=== PATIENT | male | born 1940 | race Caucasian/White ===

== ENCOUNTER 2020-07-05 16:39 | Inpatient (IN) | payer MEDICARE ==
--- NOTE | 2020-07-05 17:27 | ED ---
General Adult HPI - General Chief complaint: Shortness of Breath Stated complaint: Nausea, SOB Time Seen by Provider: 07/05/20 16:50 Source: patient, RN notes reviewed, old records reviewed Mode of arrival: EMS Limitations: no limitations - History of Present Illness Initial comments: 80-year-old male presented for evaluation of nausea, vomiting, and dyspnea. Patient's symptoms have been present for the past 4 days. He states he has been able to keep down some water but has not been able to eat. He did report some abdominal pain. He states they did call EMS. The day for symptoms of vomiting. At that time decided not to be transported. He developed some dyspnea this evening and again called EMS was transported to the emergency department at that time. He denies central chest pain. Denies lower extremity pain or swelling. States he's had a normal bowel movements. No fever. No current abdominal pain or chest pain. - Related Data Allergies Allergy/AdvReac Type Severity Reaction Status Date / Time No Known Allergies Allergy Verified 07/05/20 16:50 Review of Systems ROS Statement: Those systems with pertinent positive or pertinent negative responses have been documented in the HPI. ROS Other: All systems not noted in ROS Statement are negative. Past Medical History Past Medical History: Coronary Artery Disease (CAD), Hyperlipidemia History of Any Multi-Drug Resistant Organisms: None Reported Past Surgical History: Appendectomy, Pacemaker, Tonsillectomy Additional Past Surgical History / Comment(s): hemmeroids Past Psychological History: No Psychological Hx Reported Smoking Status: Current every day smoker Past Alcohol Use History: None Reported Past Drug Use History: None Reported General Exam Limitations: no limitations General appearance: alert, in no apparent distress Head exam: Present: atraumatic, normocephalic Eye exam: Present: normal appearance, PERRL ENT exam: Present: mucous membranes dry Neck exam: Present: normal inspection. Absent: tenderness, meningismus Respiratory exam: Present: decreased breath sounds. Absent: respiratory distress Cardiovascular Exam: Present: normal rhythm, tachycardia GI/Abdominal exam: Present: soft. Absent: distended, tenderness, guarding, rebound Extremities exam: Present: normal inspection. Absent: pedal edema Neurological exam: Present: alert, oriented X3, CN II-XII intact. Absent: motor sensory deficit Psychiatric exam: Present: normal affect, normal mood Skin exam: Present: warm, dry, intact. Absent: cyanosis, diaphoretic Course Vital Signs 07/05/20 07/05/20 07/05/20 16:41 17:49 18:32 Temperature 98.9 F Pulse Rate 107 H 92 106 H Respiratory 20 18 18 Rate Blood Pressure 117/79 115/80 108/79 O2 Sat by Pulse 93 L 96 97 Oximetry EKG Findings - EKG Comments: EKG Findings:: EKG: Atrial sensed ventricular paced rhythm, rate 97, [place] interval 108, QRS duration 188, QTC 548 Medical Decision Making - Medical Decision Making 80-year-old male presenting with nausea vomiting over the past 3 or 4 days followed by dyspnea which began this afternoon. Patient is diminished bilaterally, paced rhythm on EKG. He has no active chest pain. No lower extremity pain or swelling. His vital signs are stable upon arrival. Workup reveals chest x-ray showing pulmonary vascular congestion, trace bilate ral effusion. Abdominal x-rays negative for obstruction or intraperitoneal free air. Patient has mild leukocytosis, stable hemoglobin he has an INR of 1.6, d- dimer is elevated however after discussion with Dr. Norris covering for the ICU, recommends against CT angiography at this time, I agree given the patient will be heparinized. Patient has elevated bilirubin 3.1, elevated AST and ALT, ultrasound of the gallbladder liver is pending at this time. He has a significantly elevated troponin at 107. Case is discussed with Dr. Marion, He is given Lasix, started on a heparin drip, emergent echo has been ordered. Patient will be admitted to the ICU for close monitoring. - Lab Data Result diagrams: 07/05/20 17:29 07/05/20 17:29 Lab Results 07/05/20 07/05/20 07/05/20 Range/Units 17:29 17:29 17:29 WBC 10.7 H (3.8-10.6) k/uL RBC 5.15 (4.30-5.90) m/uL Hgb 16.4 (13.0-17.5) gm/dL Hct 52.2 (39.0-53.0) % MCV 101.2 H (80.0-100.0) fL MCH 31.8 (25.0-35.0) pg MCHC 31.4 (31.0-37.0) g/dL RDW 14.5 (11.5-15.5) % Plt Count 140 L (150-450) k/uL Neutrophils % 79 % Lymphocytes % 10 % Monocytes % 9 % Eosinophils % 0 % Basophils % 0 % Neutrophils # 8.4 H (1.3-7.7) k/uL Lymphocytes # 1.0 (1.0-4.8) k/uL Monocytes # 1.0 (0-1.0) k/uL Eosinophils # 0.0 (0-0.7) k/uL Basophils # 0.0 (0-0.2) k/uL Hypochromasia Slight Macrocytosis Slight PT 15.9 H (9.0-12.0) sec INR 1.6 H (<1.2) APTT 25.7 (22.0-30.0) sec D-Dimer 1.98 H (<0.60) mg/L FEU Sodium 138 (137-145) mmol/L Potassium 4.6 (3.5-5.1) mmol/L Chloride 103 (98-107) mmol/L Carbon Dioxide 26 (22-30) mmol/L Anion Gap 9 mmol/L BUN 31 H (9-20) mg/dL Creatinine 1.10 (0.66-1.25) mg/dL Est GFR (CKD-EPI)AfAm 74 (>60 ml/min/1.73 sqM) Est GFR (CKD-EPI)NonAf 64 (>60 ml/min/1.73 sqM) Glucose 119 H (74-99) mg/dL Plasma Lactic Acid [place] (0.7-2.0) mmol/L Calcium 9.7 (8.4-10.2) mg/dL Magnesium 1.8 (1.6-2.3) mg/dL Total Bilirubin 3.1 H (0.2-1.3) mg/dL AST 656 H (17-59) U/L ALT 101 H (4-49) U/L Alkaline Phosphatase 90 (38-126) U/L Troponin I (0.000-0.034) ng/mL NT-Pro-B Natriuret Pep pg/mL Total Protein 6.7 (6.3-8.2) g/dL Albumin 3.9 (3.5-5.0) g/dL 07/05/20 07/05/20 07/05/20 Range/Units 17:29 17:29 17:29 WBC (3.8-10.6) k/uL RBC (4.30-5.90) m/uL Hgb (13.0-17.5) gm/dL Hct (39.0-53.0) % MCV (80.0-100.0) fL MCH (25.0-35.0) pg MCHC (31.0-37.0) g/dL RDW (11.5-15.5) % Plt Count (150-450) k/uL Neutrophils % % Lymphocytes % % Monocytes % % Eosinophils % % Basophils % % Neutrophils # (1.3-7.7) k/uL Lymphocytes # (1.0-4.8) k/uL Monocytes # (0-1.0) k/uL Eosinophils # (0-0.7) k/uL Basophils # (0-0.2) k/uL Hypochromasia Macrocytosis PT (9.0-12.0) sec INR (<1.2) APTT (22.0-30.0) sec D-Dimer (<0.60) mg/L FEU Sodium (137-145) mmol/L Potassium (3.5-5.1) mmol/L Chloride (98-107) mmol/L Carbon Dioxide (22-30) mmol/L Anion Gap mmol/L BUN (9-20) mg/dL Creatinine (0.66-1.25) mg/dL Est GFR (CKD-EPI)AfAm (>60 ml/min/1.73 sqM) Est GFR (CKD-EPI)NonAf (>60 ml/min/1.73 sqM) Glucose (74-99) mg/dL Plasma Lactic Acid [place] 1.8 (0.7-2.0) mmol/L Calcium (8.4-10.2) mg/dL Magnesium (1.6-2.3) mg/dL Total Bilirubin (0.2-1.3) mg/dL AST (17-59) U/L ALT (4-49) U/L Alkaline Phosphatase (38-126) U/L Troponin I 107.000 H* (0.000-0.034) ng/mL NT-Pro-B Natriuret Pep 56351 pg/mL Total Protein (6.3-8.2) g/dL Albumin (3.5-5.0) g/dL Critical Care Time Critical Care Time: Yes Total Critical Care Time: 35 Disposition Clinical Impression: Congestive heart failure, NSTEMI (non-ST elevated myocardial infarction) Disposition: ADMITTED IP TO THIS [facility] Condition: Serious Is patient prescribed a controlled substance at d/c from ED?: No Referrals: Nonstaff,Physician [REFERRING] - 1-2 days Decision to Admit Reason: Admit from EC Decision Date: 07/05/20 Decision Time: 19:07
[2020-07-05 17:43] LABS: Basophils % (A) 0 %; Eosinophils % (A) 0 %; HCT 52.2 % (39.0-53.0); HGB 16.4 gm/dL (13.0-17.5); Hypochromasia Slight; Lymphocytes % (A) 10 %; MCH 31.8 pg (25.0-35.0); MCHC 31.4 g/dL (31.0-37.0); MCV 101.2 fL (80.0-100.0); Macrocytosis Slight; Mean Platelet Volume 9.5; Monocytes % (A) 9 %; Neutrophils # (A) 8.4 k/uL (1.3-7.7); Neutrophils % (A) 79 %; Platelet Count 140 k/uL (150-450); RBC 5.15 m/uL (4.30-5.90); RDW 14.5 % (11.5-15.5); WBC 10.7 k/uL (3.8-10.6)
[2020-07-05 17:53] LABS: Albumin 3.9 g/dL (3.5-5.0); Calcium 9.7 mg/dL (8.4-10.2); Magnesium 1.8 mg/dL (1.6-2.3); Potassium 4.6 mmol/L (3.5-5.1); Total Bilirubin 3.1 mg/dL (0.2-1.3); Total Protein 6.7 g/dL (6.3-8.2)
--- NOTE | 2020-07-05 17:55 | XR ---
EXAMINATION TYPE: XR chest 2V DATE OF EXAM: 07/05/2020 COMPARISON: None HISTORY: 80 year-old male shortness of breath, difficulty breathing TECHNIQUE: AP and lateral views FINDINGS: Left anterior chest wall ICD generator with right atrial, right ventricular, and coronary sinus leads . Heart mildly enlarged. Diffuse interstitial density. Small effusions on the lateral view. Retrocard iac opacity versus underpenetration. IMPRESSION: Correlate for CHF with pulmonary vascular congestion. Small effusions with adjacent atelectasis and/o r consolidation on the lateral view.
--- NOTE | 2020-07-05 17:57 | XR ---
EXAMINATION TYPE: XR KUB DATE OF EXAM: 07/05/2020 Comparison: None Clinical History: 80-year-old male, shortness of breath and nausea, weakness, pain Findings: No evidence for free intraperitoneal air. No dilated small bowel or air-fluid levels. Gas in colon. Calcifications in the left mid abdomen coul d be vascular or could represent small renal calculi. Rounded calcification left upper quadrant could represent a 1.3 cm splenic artery aneurysm. More vascular calcifications in the pelvis. Impression: No evidence for free air or bowel obstruction. Either some vascular calcifications versus left-sided renal calculi. Rounded calcification left upper quadrant could represent an incidental 1.3 cm splenic artery aneurysm.
[2020-07-05 18:01] LABS: INR 1.6 (<1.2); Partial Thromboplastin Time 25.7 sec (22.0-30.0); Prothrombin Time 15.9 sec (9.0-12.0)
[2020-07-05 18:10] LABS: D-Dimer 1.98 mg/L FEU (<0.60)
[2020-07-05] MEDS ORDERED: SODIUM CHLORIDE 0.9% 500 ML 500 ML IV ONE ×2 (18:34)
[2020-07-05] MEDS ORDERED: SODIUM CHLORIDE 0.9% 1,000 ML IV SCH (18:45)
[2020-07-05] MEDS ORDERED: FUROSEMIDE 10 MG/ML 4 ML VIAL IV STA (18:48)
[2020-07-05] MEDS ORDERED: HEPARIN SODIUM,PORCINE 5,000 UNIT/ML 1 ML VIAL IV PRN (18:49)
[2020-07-05] MEDS ORDERED: HEPARIN SODIUM,PORCINE 5,000 UNIT/ML 1 ML VIAL IV ONE (18:49)
[2020-07-05] MEDS ORDERED: NALOXONE 0.4 MG/ML 1 ML VIAL IV PRN (18:50)
[2020-07-05] MEDS ORDERED: HYDROmorphone 0.5 MG/0.5 ML SYRINGE IVP PRN (18:50)
[2020-07-05] MEDS ORDERED: ACETAMINOPHEN TAB 325 MG TAB PO PRN (18:50)
[2020-07-05] MEDS ORDERED: ASPIRIN 325 MG TAB PO STA (18:50)
--- NOTE | 2020-07-05 19:23 | US ---
EXAMINATION TYPE: US gallbladder DATE OF EXAM: 07/05/2020 COMPARISON: NONE CLINICAL HISTORY: 80-year-old male vomiting/bili. Abdominal pain. Abnormal labs. TECHNIQUE: Multiple sonographic images of the right upper quadrant are obtained. FINDINGS: EXAM MEASUREMENTS: Liver Length: 18.6 cm Gallbladder Wall: 0.6 cm CBD: 0.6 cm Right Kidney: 10.1 x 5.8 x 4.9 cm Sonar Watchstander notes:Suboptimal imaging due to patient heavy breathing Pancreas: Echogenic in appearance. Tail not well seen Liver: Mildly enlarged 18.6 cm. Hypoechoic appearance with echogenic appearance to the periportal fa t. Portal dyson appear echogenic. Distal IVC- 3.1 cm. Gallbladder: Prominent wall thickening. No stones or sludge visualized. Mildly hydropic at 4.1 cm wide. Evidence for sonographic Diaz's sign: neg CBD: wnl for patient's age. Right Kidney: No hydronephrosis. IMPRESSION: 1. Hepatomegaly (18.6 cm) with hypoechoic appearance to the liver and echogenic periportal fat. Findi ngs may be seen in the setting of hepatitis. Clinically correlate. 2. Gallbladder wall thickening is nonspecific. It can be reactive to hepatitis or reflect fluid overl oad state. Mildly hydropic change may be seen with fasting state. No stones or surrounding fluid. If concern for early acute cholecystitis, HIDA scan can be performed.
[2020-07-05] MEDS: HEPARIN SOD,PORK IN 0.45% NACL 25,000 UNIT in 0.45% NACL 1 250ML.BAG IV SCH (19:41)
[2020-07-05 20:11] LABS: Glucose,Whole Blood 106 mg/dL (75-99)
--- NOTE | 2020-07-05 23:18 | P.HPIM ---
History of Present Illness H&P Date: 07/05/20 The patient is a 80-year-old male with a PMH of tobacco abuse and hyperlipidemia who presented to the ED with complaints of shortness of breath, nausea, vomiting, and dizziness. Patient reports that his symptoms started on the evening of 07/03. He reports that he woke up roughly at midnight drenched in sweat, didn't think much of it and went back to sleep. The following day he developed his gradually worsening shortness of breath. He also reported of burning like discomfort in the chest, similar to his previous episodes of heartburn, which was relieved by Tums. He also had nausea with 2 episodes of vomiting, nonbloody along with a poor appetite. His neighbors checked in on him earlier in the day today and called EMS. The patient initially refused to come to the hospital. The neighbors called the ambulance a second time, as his symptoms worsened, at which time he was brought in to the emergency room. The patient denied experiencing orthopnea or pressure-like chest discomfort. He reports some dizziness today when he tries to stand up too quickly, though denied loss of consciousness or falls. He reports that his shortness of breath is non-positional and denied orthopnea. Denied recent colds or URI-like symptoms. Denied fever, cough, abdominal pain, or diarrhea. In the emergency room, an EKG revealed an atrial sensed V paced rhythm at 97 bpm. Chest x-ray was consistent with CHF with pulmonary venous congestion with a gallbladder ultrasound showing hepatomegaly with hypoechoic appearance of the liver, possibly due to hepatitis. Gallbladder wall was thickened with mild hydropic change. Troponin was elevated at 107, BNP 15,300, total bilirubin 3.1, AST 656, ALT 101, d-dimer 1.98, BUN 31, WBC count 10.7, with platelet count 140. Review of Systems Pertinent positives and negatives as discussed in HPI, a complete review of systems was performed and all other systems are negative. Past Medical History Past Medical History: Coronary Artery Disease (CAD), Hyperlipidemia History of Any Multi-Drug Resistant Organisms: None Reported Past Surgical History: Appendectomy, Pacemaker, Tonsillectomy Additional Past Surgical History / Comment(s): hemmeroids Past Psychological History: No Psychological Hx Reported Smoking Status: Current every day smoker Past Alcohol Use History: None Reported Past Drug Use History: None Reported Medications and Allergies Allergies Allergy/AdvReac Type Severity Reaction Status Date / Time No Known Allergies Allergy Verified 07/05/20 16:50 Physical Exam Vitals: Vital Signs Temp Pulse Resp BP Pulse Ox 07/05/20 19:46 100 18 109/72 95 07/05/20 19:08 98.6 F 98 18 104/75 95 07/05/20 18:32 106 H 18 108/79 97 07/05/20 17:49 92 18 115/80 96 07/05/20 16:41 98.9 F 107 H 20 117/79 93 L Intake and Output 07/05/20 07/05/20 07/05/20 06:59 14:59 22:59 Intake Total 200 Balance 200 Intake: Amount of Fluid Infused ( 200 ml) Other: Weight 98.883 kg General: non toxic, no distress, appears at stated age, overweight Derm: no unusual rashes/lesions no unusual ecchymoses, warm, dry Head: atraumatic, normocephalic, symmetric Eyes: EOMI, no lid lag, anicteric sclera, pupils equal round reactive to light ENT: Nose and ears atraumatic, no thrush, no pharyngeal erythema Neck: No thyromegaly, no cervical lymphadenopathy, trachea midline, supple Mouth: no lip lesion, mucus membranes moist Cardiovascular: S1S2 reg, no murmur, positive posterior tibial pulse bilateral, no edema, capillary refill less than 2 seconds Lungs: CTA bilateral, no rhonchi, no rales , no accessory muscle use Abdominal: soft, nontender to palpation, no guarding, no appreciable organomegaly, normal bowel sounds Ext: no gross muscle atrophy, muscle strength 5 out of 5 in all 4 extremities grossly, no contractures, Neuro: CN II-XI grossly intact, light touch intact all 4 extremities, finger to nose within normal limits, Psych: Alert, oriented, appropriate affect Results CBC & Chem 7: 07/05/20 17:29 07/05/20 17:29 Labs: Abnormal Lab Results - Last 24 Hours (Table) 07/05/20 07/05/20 07/05/20 Range/Units 17:29 17:29 17:29 WBC 10.7 H (3.8-10.6) k/uL MCV 101.2 H (80.0-100.0) fL Plt Count 140 L (150-450) k/uL Neutrophils # 8.4 H (1.3-7.7) k/uL PT 15.9 H (9.0-12.0) sec INR 1.6 H (<1.2) D-Dimer 1.98 H (<0.60) mg/L FEU BUN 31 H (9-20) mg/dL Glucose 119 H (74-99) mg/dL POC Glucose (mg/dL) (75-99) mg/dL Total Bilirubin 3.1 H (0.2-1.3) mg/dL AST 656 H (17-59) U/L ALT 101 H (4-49) U/L Troponin I (0.000-0.034) ng/mL 07/05/20 07/05/20 Range/Units 17:29 20:09 WBC (3.8-10.6) k/uL MCV (80.0-100.0) fL Plt Count (150-450) k/uL Neutrophils # (1.3-7.7) k/uL PT (9.0-12.0) sec INR (<1.2) D-Dimer (<0.60) mg/L FEU BUN (9-20) mg/dL Glucose (74-99) mg/dL POC Glucose (mg/dL) 106 H (75-99) mg/dL Total Bilirubin (0.2-1.3) mg/dL AST (17-59) U/L ALT (4-49) U/L Troponin I 107.000 H* (0.000-0.034) ng/mL Assessment and Plan Plan: Elevated troponin, acute CHF - NSTEMI versus myocarditis -The case was discussed with cardiology on-call as per the ED physician who had recommended that the patient is not a candidate for cardiac catheterization due to his absence of chest pain -It was recommended to continue management with heparin and the CHF pathway -Continue to trend troponin -Cardiac monitoring -Cardiac consult -Continue with aspirin -Obtain echocardiogram -Continue with Lasix 40 mg every 12 hourly, heparin infusion, fluid restriction Abnormal LFTs -Likely secondary to hepatic congestion -Monitor for now -Liver ultrasound reviewed -Consider hepatitis workup if does not improve Coagulopathy, possibly due to ongoing hepatic congestion -Monitor for now DVT prophylaxis -IPCDs The patient is admitted with an anticipated greater than 2 midnight stay for evaluation of SOB CODE STATUS: Full Code Discussed with: Patient Anticipated discharge date: 3-[address]: Home A total of 45 minutes was spent on the care of this complex patient more than 50% of the time was spent in counseling and care coordination.
[2020-07-05 23:49] LABS: Appearance,Urine Cloudy (Clear); Bilirubin,Urine Negative (Negative); Blood,Urine Moderate (Negative); Color,Urine Yellow; Glucose,Urine (UA) Negative (Negative); Hyaline Casts,Urine 30 /lpf (0-2); Ketones,Urine Negative (Negative); Leukocyte Esterase,Urine Negative (Negative); Mucus,Urine Few /hpf; Nitrite,Urine Negative (Negative); Protein,Urine Trace (Negative); RBC,Urine 59 /hpf (0-5); Specific Gravity,Urine 1.015 (1.001-1.035); Squamous Epithelial Cell,Urine <1 /hpf (0-4); Urobilinogen,Urine <2.0 mg/dL (<2.0); WBC,Urine 4 /hpf (0-5)
[2020-07-06 04:31] LABS: HCT 52.4 % (39.0-53.0); HGB 16.4 gm/dL (13.0-17.5); Hypochromasia Slight; MCH 31.9 pg (25.0-35.0); MCHC 31.3 g/dL (31.0-37.0); MCV 102.1 fL (80.0-100.0); Macrocytosis Slight; Mean Platelet Volume 9.2; Platelet Count 125 k/uL (150-450); RBC 5.14 m/uL (4.30-5.90); RDW 14.4 % (11.5-15.5); WBC 15.3 k/uL (3.8-10.6)
[2020-07-06 04:34] LABS: INR 1.8 (<1.2); Prothrombin Time 17.3 sec (9.0-12.0)
[2020-07-06 04:46] LABS: Albumin 3.5 g/dL (3.5-5.0); Calcium 9.2 mg/dL (8.4-10.2); Potassium 4.9 mmol/L (3.5-5.1); Total Bilirubin 3.1 mg/dL (0.2-1.3); Total Protein 6.2 g/dL (6.3-8.2)
[2020-07-06 05:16] LABS: Eosinophils # (M) 0.15 k/uL (0-0.7); Large Platelets Present; Lymphocytes # (M) 2.75 k/uL (1.0-4.8); Monocytes # (M) 1.22 k/uL (0-1.0); Neutrophils # (M) 11.17 k/uL (1.3-7.7); Neutrophils % (M) 73 %; Nucleated Red Blood Cells 0 /100 WBC (0-0); Total Cells Counted 100
--- NOTE | 2020-07-06 07:27 | P.CRDCN ---
History of Present Illness Consult date: 07/06/20 History of present illness: This is a 80-year-old gentleman with history of cardiomyopathy, previous AICD placement being followed by a coach driver in [place] has been feeling sick for the last 3-4 days. He claims since starting Monday patient has been nauseated, unable to eat and getting more short of breath. He also claimed that he had some burning sensation as if he needed tums. Patient continued to be sick Monday and Monday. Apparently his is out of town. His neighbors called the paramedics on Monday, but patient refused to come to the emergency room. Finally patient came to the emergency room last night. His EKG showed pacemaker rhythm. Patient had defibrillator implantation suggestive of previous cardiomyopathy. Patient had JVD and evidence of CHF. His troponin was about 100 and liver enzymes are elevated, most probably secondary to congestion. It is admitted to the hospital and was started on IV diuretics. Patient is diures ing. He is feeling slightly better today. We'll continue maximal medical therapy at this time. Get an echocardiogram. Get information from his coach driver. Further recommendation will depend upon the clinical course. Prognosis is guarded Review of Systems As per the chart Past Medical History Past Medical History: Coronary Artery Disease (CAD), Hyperlipidemia History of Any Multi-Drug Resistant Organisms: None Reported Past Surgical History: Appendectomy, Pacemaker, Tonsillectomy Additional Past Surgical History / Comment(s): hemmeroids Type of Cardiac Device: Permanent Pacemaker, AICD Device Placement Date:: Patient states "About 7 years ago" Past Psychological History: No Psychological Hx Reported Smoking Status: Current every day smoker Past Alcohol Use History: None Reported Past Drug Use History: None Reported Medications and Allergies Allergies Allergy/AdvReac Type Severity Reaction Status Date / Time No Known Allergies Allergy Verified 07/05/20 16:50 Physical Exam Vitals: Vital Signs Temp Pulse Resp BP Pulse Ox 07/06/20 07:00 98 14 87/51 93 L 07/06/20 06:00 101 H 13 99/70 93 L 07/06/20 05:00 79 43 H 76/56 93 L 07/06/20 04:00 98.6 F 97 8 L 104/59 91 L 07/06/20 03:00 101 H 47 H 98/64 90 L 07/06/20 02:00 86 24 108/63 94 L 07/06/20 01:00 96 25 H 123/81 93 L 07/06/20 00:00 98.9 F 93 21 108/70 95 07/05/20 23:00 98 24 96/75 94 L 07/05/20 22:00 92 25 H 97/68 94 L 07/05/20 21:53 86 26 H 97/68 94 L 07/05/20 21:23 121/104 07/05/20 20:00 109/72 95 07/05/20 19:46 100 18 109/72 95 07/05/20 19:08 98.6 F 98 18 104/75 95 07/05/20 19:00 98 40 H 108/79 94 L 07/05/20 18:32 106 H 18 108/79 97 07/05/20 18:00 98 50 H 115/80 94 L 07/05/20 17:49 92 18 115/80 96 07/05/20 17:00 105 H 33 H 117/79 94 L 07/05/20 16:45 95 07/05/20 16:41 98.9 F 107 H 20 117/79 93 L Intake and Output 07/05/20 07/06/20 07/06/20 22:59 06:59 14:59 Intake Total 210 140.167 5 Output Total 700 200 Balance 210 -559.833 -195 Intake: IV 10 40 5 0.9 10 40 5 Amount of Fluid Infused ( 200 ml) Intake, IV Titration 100.167 Amount Heparin Sod,Pork in 0.45% 100.167 NaCl 25,000 unit In 0.45 % NaCl 1 250ml.bag @ 10. 113 UNITS/KG/HR 10 mls/hr IV .Q24H [facility] Rx#: [id number] Output: Urine 700 200 Other: # Voids 1 Weight 98.883 kg 98.6 kg GENERAL EXAM: Patient is alert and oriented and appears to be in mild distress HEENT: Normocephalic. Normal reaction of pupils, equal size, normal range of extraocular motion. No erythema or exudates in the throat. NECK: No masses, no nuchal rigidity. CHEST: No chest wall deformity. LUNGS: Decreased breath sounds and few rales at the bases HEART: S1 and S2 normal with no audible mumurs or gallops. Regular rhythm, femorals equal on both sides.. ABDOMEN: Soft CENTRAL NERVOUS SYSTEM: No focal deficits. EXTREMITIES: No cyanosis, clubbing or edema. Results 07/06/20 04:17 07/06/20 04:17 Cardiac Enzymes 07/05/20 07/05/20 07/06/20 Range/Units 17:29 17:29 04:17 AST 656 H 542 H (17-59) U/L Troponin I 107.000 H* (0.000-0.034) ng/mL Coagulation 07/05/20 07/06/20 07/06/20 Range/Units 17:29 00:21 04:17 PT 15.9 H 17.3 H (9.0-12.0) sec APTT 25.7 36.1 H (22.0-30.0) sec CBC 07/05/20 07/06/20 Range/Units 17:29 04:17 WBC 10.7 H 15.3 H (3.8-10.6) k/uL RBC 5.15 5.14 (4.30-5.90) m/uL Hgb 16.4 16.4 (13.0-17.5) gm/dL Hct 52.2 52.4 (39.0-53.0) % Plt Count 140 L 125 L (150-450) k/uL Comprehensive Metabolic Panel 07/05/20 07/06/20 Range/Units 17:29 04:17 Sodium 138 137 (137-145) mmol/L Potassium 4.6 4.9 (3.5-5.1) mmol/L Chloride 103 104 (98-107) mmol/L Carbon Dioxide 26 27 (22-30) mmol/L BUN 31 H 36 H (9-20) mg/dL Creatinine 1.10 1.19 (0.66-1.25) mg/dL Glucose 119 H 112 H (74-99) mg/dL Calcium 9.7 9.2 (8.4-10.2) mg/dL AST 656 H 542 H (17-59) U/L ALT 101 H 92 H (4-49) U/L Alkaline Phosphatase 90 77 (38-126) U/L Total Protein 6.7 6.2 L (6.3-8.2) g/dL Albumin 3.9 3.5 (3.5-5.0) g/dL Current Medications Generic Name Dose Route Start Last Admin Trade Name Freq PRN Reason Stop Dose Admin Acetaminophen 650 mg 07/05/20 18:50 Tylenol Tab PO Q4HR PRN Fever and/or Mild Pain Furosemide 40 mg 07/06/20 09:00 Lasix IV Q12HR [facility] Heparin Sodium (Porcine) 0 unit 07/05/20 18:49 Heparin IV PER PROTOCOL PRN Low PTT Protocol Hydromorphone HCl 0.5 mg 07/05/20 18:50 Dilaudid IVP Q2HR PRN Pain Scale 4 to 5 Heparin Sodium/Sodium Chloride 250 mls @ 10 mls/hr 07/05/20 19:00 07/06/20 05:42 25,000 unit/ Sodium Chloride IV 12.113 units/kg/hr .Q24H NIRMALA 11.978 mls/hr Titration Protocol 10.113 UNITS/KG/HR Naloxone HCl 0.2 mg 07/05/20 18:50 Narcan IV Q2M PRN Opioid Reversal Intake and Output 07/05/20 07/06/20 07/06/20 22:59 06:59 14:59 Intake Total 210 140.167 5 Output Total 700 200 Balance 210 -559.833 -195 Intake: IV 10 40 5 0.9 10 40 5 Amount of Fluid Infused ( 200 ml) Intake, IV Titration 100.167 Amount Heparin Sod,Pork in 0.45% 100.167 NaCl 25,000 unit In 0.45 % NaCl 1 250ml.bag @ 10. 113 UNITS/KG/HR 10 mls/hr IV .Q24H [facility] Rx#: [id number] Output: Urine 700 200 Other: # Voids 1 Weight 98.883 kg 98.6 kg 07/06/20 04:17 07/06/20 04:17 EKG Interpretations (text) Pacemaker rhythm Assessment and Plan (1) Myocardial infarction Current Visit: Yes Status: Acute Code(s): I21.9 - ACUTE MYOCARDIAL INFARCTION, UNSPECIFIED SNOMED Code(s): 71570980 (2) Acute on chronic systolic heart failure Current Visit: Yes Status: Acute Code(s): I50.23 - ACUTE ON CHRONIC SYSTOLIC (CONGESTIVE) HEART FAILURE SNOMED Code(s): 312761947 (3) Cardiomyopathy Current Visit: Yes Status: Acute Code(s): I42.9 - CARDIOMYOPATHY, UNSPEC IFIED SNOMED Code(s): 76639113 (4) AICD (automatic cardioverter/defibrillator) present Current Visit: Yes Status: Acute Code(s): Z95.810 - PRESENCE OF AUTOMATIC (IMPLANTABLE) CARDIAC DEFIBRILLATOR SNOMED Code(s): 626760692 Plan: Continue with the maximum medical therapy including diuretics, IV heparin, beta blockers and YUE inhibitor as tolerated. Echocardiogram. Get information from his previous coach driver. Discussed with family. Patient may require cardiac catheterization in the near future
[2020-07-06] MEDS ORDERED: FUROSEMIDE 10 MG/ML 4 ML VIAL IV SCH ×2 (08:00→09:00)
[2020-07-06] MEDS ORDERED: METOPROLOL TARTRATE 12.5 MG TAB PO SCH (09:00)
--- NOTE | 2020-07-06 11:00 | ECHOF ---
Referral Reason:CHF, myocarditis ? MEASUREMENTS -------- HEIGHT: 182.9 cm WEIGHT: 98.4 kg BP: 87/51 IVSd: 1.3 cm (0.6 - 1.1) LVIDd: 7.8 cm (3.9 - 5.3) LVPWd: 1.7 cm (0.6 - 1.1) EDV(Teich): 327 ml IVSs: 1.3 cm LVIDs: 7.7 cm LVPWs: 1.6 cm %IVS Thck: -2 % ESV(Teich): 318 ml EF(Teich): 3 % %FS: 1 % SV(Teich): 9 ml RVIDd: 3.6 cm (< 3.3) Ao Diam: 3.6 cm (2.0 - 3.7) LA Diam: 4.0 cm (2.7 - 3.8) AV Cusp: 2.1 cm (1.5 - 2.6) EPSS: 2.8 cm MV E Andre: 0.97 m/s MV DecT: 217 ms MV Dec [place]: 4.5 m/s MV A Andre: 0.76 m/s MV E/A Ratio: 1.27 MV PHT: 63 ms MR Vmax: 1.08 m/s MR maxP.65 mmHg AV Vmax: 0.75 m/s AV maxP.27 mmHg AR Vmax: 0.79 m/s AR maxP.52 mmHg AR PHT: 564 ms AR Dec Time: 1946 ms AR Dec [place]: 0.4 m/s PV Vmax: 2.12 m/s PV maxP.91 mmHg MS Vmax: 2.12 m/s MS maxP.91 mmHg MS PHT: 686 ms MS DecT: 2366 ms MS Dec [place]: 0.9 m/s TR Vmax: 0.79 m/s TR maxP.51 mmHg RAP: 5.00 mmHg RVSP: 7.51 mmHg MV EF SLOPE: 94.59 mm/s (70 - 150) MV EXCURSION: 14.84 mm (> 18.000) FINDINGS -------- AICD This was a technically difficult study with suboptimal views. The left ventricle is severely dilated. Left ventricular wall thickness is normal. There is sever e global hypokinesis of LV . Overall left ventricular systolic function is severely impaired with, an EF < 20%. The right ventricle is mildly enlarged. The left atrium is mildly dilated. The right atrium was not well visualized. Lumason used Unable to visualize the septum. Aortic valve is trileaflet and is mildly thickened. There is moderate eccentric aortic regurgitatio n. The mitral valve is normal. There is trace mitral regurgitation. The tricuspid valve appears structurally normal. Trace tricuspid regurgitation present. Right sergio tricular systolic pressure is normal at < 35 mmHg. Moderate pulmonic regurgitation. The aortic root size is normal. IVC Not well visulized. There is a trivial pericardial effusion present. CONCLUSIONS -------- 1. The left ventricle is severely dilated. 2. Left ventricular wall thickness is normal. 3. There is severe global hypokinesis of LV . 4. Overall left ventricular systolic function is severely impaired with, an EF < 20%. 5. The right ventricle is mildly enlarged. 6. The left atrium is mildly dilated. 7. Aortic valve is trileaflet and is mildly thickened. There is moderate eccentric aortic regurgitat ion. 8. There is trace mitral regurgitation. 9. Trace tricuspid regurgitation present. 10. There is a trivial pericardial effusion present. PRESS FEEDER: Bernice Lara RDCS
[2020-07-06] MEDS: DOBUTamine DRIP 500 MG in DEXTROSE/WATER 1 250ML.BAG IV SCH (11:48)
[2020-07-06] MEDS: FUROSEMIDE 100 MG in SODIUM CHLORIDE 0.9% 90 ML IV SCH (11:48)
[2020-07-06] MEDS: PANTOPRAZOLE 40 MG TABLET PO SCH (11:49)
[2020-07-06] MEDS ORDERED: NITROGLYCERIN SL TABS 0.4 MG TAB SUBLINGUAL ONE ×2 (12:17→12:18)
--- NOTE | 2020-07-06 13:57 | P.CNPUL ---
History of Present Illness Consult date: 07/06/20 Requesting physician: Sundeep Rios Reason for consult: other (Acute myocardial infarction and acute on chronic systolic heart failure) Chief complaint: Nausea and vomiting History of present illness: This is a 80-year-old white male with history of cardiomyopathy and LV dysfunction. No history of coronary artery disease, previous AICD placement, normally follows up with a dispensing optician apprentice in [place]. Patient has been feeling sick for the last 4 days, patient has been experiencing intermittent episodes of nausea, unable to hold anything down, nauseated, vomiting at times, and he had some burning sensation in the chest. His neighbors were concerned, and the paramedics were called in on Monday. However the patient refused to come to the emergency room initially, but later on he changed his mind. Patient presented to the ER, and he was noted to have a paced rhythm, he was also noted to have congestive heart failure, with significantly elevated troponin level, significantly elevated pro BNP level, admitted, placed on diuretics, seen by cardiology on consultation, Though on heparin, echocardiogram showed significant LV dysfunction with ejection fraction of less than 20%. After my evaluation, I recommended a Lasix drip at 5 mg per hour, I also recommended dobutamine at 5 mcg/kg/m. Review of Systems Constitutional: Complaining of weakness, fatigue, no weight loss, no fever, no chills. HEENT: Negative. Pulmonary: Some shortness of breath, occasional cough, no wheezing. Cardiac: As noted in HPI. GI: Nausea, vomiting, and unable to hold anything down. Genitourinary: Negative Musculoskeletal: Negative Endocrine: Denies heat or cold intolerance. Skin: Negative Neurologic: Negative Hematologic: No history of clotting bleeding or bruising Psychiatric: Denies any symptoms of depression Past Medical History Past Medical History: Coronary Artery Disease (CAD), Hyperlipidemia History of Any Multi-Drug Resistant Organisms: None Reported Past Surgical History: Appendectomy, Pacemaker, Tonsillectomy Additional Past Surgical History / Comment(s): hemmeroids Type of Cardiac Device: Permanent Pacemaker, AICD Device Placement Date:: Patient states "About 7 years ago" Past Psychological History: No Psychological Hx Reported Smoking Status: Current every day smoker Past Alcohol Use History: None Reported Past Drug Use History: None Reported Medications and Allergies Home Medications Medication Instructions Recorded Confirmed Type Atorvastatin [Lipitor] 20 mg PO HS 07/06/20 07/06/20 History Furosemide [Lasix] 40 mg PO DAILY 07/06/20 07/06/20 History Isosorbide Mononitrate ER [Imdur] 30 mg PO DAILY 07/06/20 07/06/20 History Metoprolol Succinate (ER) [Toprol 25 mg PO DAILY 07/06/20 07/06/20 History Xl] Tamsulosin HCl [Flomax] 0.4 mg PO DAILY 07/06/20 07/06/20 History Allergies Allergy/AdvReac Type Severity Reaction Status Date / Time No Known Allergies Allergy Verified 07/06/20 09:57 Physical Exam Vitals: Vital Signs Temp Pulse Resp BP Pulse Ox 07/06/20 13:00 101 H 23 123/57 100 07/06/20 12:00 98.2 F 71 38 H 97/70 97 07/06/20 11:00 84 26 H 92/74 100 07/06/20 10:00 57 L 26 H 105/65 96 07/06/20 09:00 81 27 H 105/86 92 L 07/06/20 08:00 98 F 99 28 H 107/80 92 L 07/06/20 07:00 98 14 87/51 93 L 07/06/20 06:00 101 H 13 99/70 93 L 07/06/20 05:00 79 43 H 76/56 93 L 07/06/20 04:00 98.6 F 97 8 L 104/59 91 L 07/06/20 03:00 101 H 47 H 98/64 90 L 07/06/20 02:00 86 24 108/63 94 L 07/06/20 01:00 96 25 H 123/81 93 L 07/06/20 00:00 98.9 F 93 21 108/70 95 07/05/20 23:00 98 24 96/75 94 L 07/05/20 22:00 92 25 H 97/68 94 L 07/05/20 21:53 86 26 H 97/68 94 L 07/05/20 21:23 121/104 07/05/20 20:00 109/72 95 07/05/20 19:46 100 18 109/72 95 07/05/20 19:08 98.6 F 98 18 104/75 95 07/05/20 19:00 98 40 H 108/79 94 L 07/05/20 18:32 106 H 18 108/79 97 07/05/20 18:00 98 50 H 115/80 94 L 07/05/20 17:49 92 18 115/80 96 07/05/20 17:00 105 H 33 H 117/79 94 L 07/05/20 16:45 95 07/05/20 16:41 98.9 F 107 H 20 117/79 93 L Intake and Output 07/05/20 07/06/20 07/06/20 22:59 06:59 14:59 Intake Total 210 140.167 126.033 Output Total 700 340 Balance 210 -559.833 -213.967 Intake: IV 10 40 35 0.9 10 40 35 Amount of Fluid Infused ( 200 ml) Intake, IV Titration 100.167 91.033 Amount Heparin Sod,Pork in 0.45% 100.167 91.033 NaCl 25,000 unit In 0.45 % NaCl 1 250ml.bag @ 10. 113 UNITS/KG/HR 10 mls/hr IV .Q24H [facility] Rx#: [id number] Output: Urine 700 340 Other: # Voids 1 Weight 98.883 kg 98.6 kg Physical Exam: Revealed a 80-year-old white male, pleasant, on 3 L nasal cannu la, O2 saturations 92%. Head: Atraumatic, normocephalic. HEENT:[Neck is supple.] [No neck masses.] [No thyromegaly.] Positive JVD. Chest: [Crackles at the bases, no rhonchi and no wheezes. Symmetrical chest expansion.] Cardiac Exam: Paced rhythm, normal S1 and S2, 2/6 systolic murmur thought the p recordium Abdomen: [Obese, Soft, nontender, no megaly, no rebound, no guarding, normal bowel sounds.] Extremities: [No clubbing, 1+ bipedal edema, no cyanosis.] Neurological Exam: [No focal neurologic deficit.] Alert oriented 3. Psychiatric: Normal mood, affect and normal mental status examination. Musculoskeletal: No deformities noted limitation of range of motion Skin: No rashes. Results - Laboratory Findings CBC and BMP: 07/06/20 04:17 07/06/20 04:17 PT/INR, D-dimer PT 17.3 sec (9.0-12.0) H 07/06/20 04:17 INR 1.8 (<1.2) H 07/06/20 04:17 D-Dimer 1.98 mg/L FEU (<0.60) H 07/05/20 17:29 Abnormal lab findings: Abnormal Labs 07/05/20 07/05/20 07/05/20 17:29 17:29 17:29 WBC 10.7 H MCV 101.2 H Plt Count 140 L Neutrophils # 8.4 H Neutrophils # (Manual) Monocytes # (Manual) PT 15.9 H INR 1.6 H APTT D-Dimer 1.98 H BUN 31 H Glucose 119 H POC Glucose (mg/dL) Total Bilirubin 3.1 H AST 656 H ALT 101 H Troponin I Total Protein Urine Protein Urine Blood Urine RBC Hyaline Casts Urine Mucus 07/05/20 07/05/20 07/05/20 17:29 20:09 23:31 WBC MCV Plt Count Neutrophils # Neutrophils # (Manual) Monocytes # (Manual) PT INR APTT D-Dimer BUN Glucose POC Glucose (mg/dL) 106 H Total Bilirubin AST ALT Troponin I 107.000 H* Total Protein Urine Protein Trace H Urine Blood Moderate H Urine RBC 59 H Hyaline Casts 30 H Urine Mucus Few H 07/06/20 07/06/20 07/06/20 00:21 04:17 04:17 WBC 15.3 H MCV 102.1 H Plt Count 125 L Neutrophils # Neutrophils # (Manual) 11.17 H Monocytes # (Manual) 1.22 H PT INR APTT 36.1 H D-Dimer BUN 36 H Glucose 112 H POC Glucose (mg/dL) Total Bilirubin 3.1 H AST 542 H ALT 92 H Troponin I Total Protein 6.2 L Urine Protein Urine Blood Urine RBC Hyaline Casts Urine Mucus 07/06/20 07/06/20 04:17 12:11 WBC MCV Plt Count Neutrophils # Neutrophils # (Manual) Monocytes # (Manual) PT 17.3 H INR 1.8 H APTT 67.2 H D-Dimer BUN Glucose POC Glucose (mg/dL) Total Bilirubin AST ALT Troponin I Total Protein Urine Protein Urine Blood Urine RBC Hyaline Casts Urine Mucus - Diagnostic Findings Chest x-ray: image reviewed (Chest x-ray is consistent with CHF. There is pulmonary vascular congestion, small effusions and atelectasis) Assessment and Plan Assessment: Impression: Acute hypoxic respiratory failure secondary to acute on chronic systolic congestive heart failure and pulmonary edema. Acute non-ST elevation myocardial infarction Acute on chronic systolic congestive heart failure Severe cardiomyopathy and LV dysfunction Elevated liver enzymes secondary to hepatic congestion and congestive heart failure History of AICD placement. Recommendation: Continue heparin. Continue diuretics, I have started the patient on Lasix drip at 5 mg per hour. Considering the patient was developing worsening shortness of breath, I recommended Dobutrex along with Lasix drip. Continue to monitor the patient in the ICU. May eventually require cardiac catheterization. We'll continue to follow. Prognosis is poor and guarded considering his LV dysfunction. Time with Patient: Greater than 30
--- NOTE | 2020-07-06 20:29 | P.PN ---
Subjective Progress Note Date: 07/06/20 (delayed charting seen at 1430) Principal diagnosis: shortness of breath Patient is a 80-year-old male with a history of congestive heart failure status post AICD, dyslipidemia, and tobacco abuse who presented to the emergency department with shortness of breath, nausea, vomiting, and dizziness. Currently admitted to the ICU on treatment for cardiogenic shock. Patient seen and examined at bedside. He reports that his last hospital stay for congestive heart failure was in winter of this year. He states he is taking his medications appropriately. He is complaining of some shortness of breath and abdominal discomfort. He denies any more nausea or vomiting. General: Ill appearing, moderate distress appears at stated age Derm: warm, dry Head: atraumatic, normocephalic, symmetric Eyes: EOMI, no lid lag, anicteric sclera Mouth: no lip lesion, mucus membranes moist Cardiovascular: S1 and S2 tachycardic, positive posterior tibial pulse bilateral, Lungs: Crackles bilateral bases, 3 word conversational dyspnea, no accessory muscle use Abdominal: soft, nontender to palpation, no guarding, no appreciable organomegaly Ext: no gross muscle atrophy, 1+ edema, no contractures Neuro: CN II-XI grossly intact, no focal neuro deficits Psych: Alert, oriented, appropriate affect Non-ST segment elevated myocardial infarction -Heparin drip - ASA, lipitor Acute on chronic systolic congestive heart failure ejection fraction less than 20% with cardiogenic shock, AICD in place -Continue with Lasix drip if: Full urine output is not achieved increase to 10 mg/h -Aldactone -Continue with dobutamine -Beta agustina and YUE inhibitor on hold secondary to hypotension -Cardiology recommendations appreciated -Critical care recommendations appreciated -Possible cardiac cath in the near future -Records requested from patient's outpatient charge account authorizer Dr. Melara Transaminitis -Suspect secondary to hepatic congestion with underlying liver disease secondary to steatohepatitis -Repeat in a.m. after diuresis - check acute hepatitis panel Coagulopathy, undetermined etiology -Repeat INR in a.m. - possibly realted to underlying liver disease Leukocytosis -Suspect reactive and secondary to stress -Follow CBC Thrombocytopenia -Undetermined etiology -Follow CBC Between the patient's thrombocytopenia, elevated INR, transaminitis secondary to his return for underlying liver disease. However due to his acute hypotension in [place] CHF we will delay further invasive testing until the patient is more stable and there is hepatomegaly but no signs of cirrhosis on liver ultrasound. Consult GI and check hepatitis profile DVT prophylaxis:heparin gtt Discussed with: patient, nursing Anticipated discharge: 4-[address]: [facility] A total of 65 minutes was spent on the care of this complex patient more than 50% of the time was spent in counseling and care coordination. Objective - Vital Signs Vital signs: Vital Signs Temp 98.1 F 07/06/20 18:00 Pulse 77 07/06/20 19:00 Resp 40 H 07/06/20 19:00 BP 85/72 07/06/20 19:00 Pulse Ox 98 07/06/20 18:00 Intake & Output 07/06/20 07/06/20 07/07/20 06:59 18:59 06:59 Intake Total 350.167 176.033 10 Output Total 700 660 40 Balance -349.833 -483.967 -30 Weight 98.6 kg 98.6 kg Intake: IV 50 85 10 0.9 50 85 10 Amount of Fluid Infused ( 200 ml) Intake, IV Titration 100.167 91.033 Amount Heparin Sod,Pork in 0.45% 100.167 91.033 NaCl 25,000 unit In 0.45 % NaCl 1 250ml.bag @ 10. 113 UNITS/KG/HR 10 mls/hr IV .Q24H [facility] Rx#: [id number] Output: Urine 700 660 40 Other: # Voids 1 1 - Labs CBC & Chem 7: 07/06/20 04:17 07/06/20 04:17 Labs: Abnormal Lab Results - Last 24 Hours (Table) 07/05/20 07/05/20 07/06/20 Range/Units 20:09 23:31 00:21 WBC (3.8-10.6) k/uL MCV (80.0-100.0) fL Plt Count (150-450) k/uL Neutrophils # (Manual) (1.3-7.7) k/uL Monocytes # (Manual) (0-1.0) k/uL PT (9.0-12.0) sec INR (<1.2) APTT 36.1 H (22.0-30.0) sec BUN (9-20) mg/dL Glucose (74-99) mg/dL POC Glucose (mg/dL) 106 H (75-99) mg/dL Total Bilirubin (0.2-1.3) mg/dL AST (17-59) U/L ALT (4-49) U/L Troponin I (0.000-0.034) ng/mL Total Protein (6.3-8.2) g/dL Urine Protein Trace H (Negative) Urine Blood Moderate H (Negative) Urine RBC 59 H (0-5) /hpf Hyaline Casts 30 H (0-2) /lpf Urine Mucus Few H (None) /hpf 07/06/20 07/06/20 07/06/20 Range/Units 04:17 04:17 04:17 WBC 15.3 H (3.8-10.6) k/uL MCV 102.1 H (80.0-100.0) fL Plt Count 125 L (150-450) k/uL Neutrophils # (Manual) 11.17 H (1.3-7.7) k/uL Monocytes # (Manual) 1.22 H (0-1.0) k/uL PT 17.3 H (9.0-12.0) sec INR 1.8 H (<1.2) APTT (22.0-30.0) sec BUN 36 H (9-20) mg/dL Glucose 112 H (74-99) mg/dL POC Glucose (mg/dL) (75-99) mg/dL Total Bilirubin 3.1 H (0.2-1.3) mg/dL AST 542 H (17-59) U/L ALT 92 H (4-49) U/L Troponin I (0.000-0.034) ng/mL Total Protein 6.2 L (6.3-8.2) g/dL Urine Protein (Negative) Urine Blood (Negative) Urine RBC (0-5) /hpf Hyaline Casts (0-2) /lpf Urine Mucus (None) /hpf 07/06/20 07/06/20 07/06/20 Range/Units 04:17 12:11 18:41 WBC (3.8-10.6) k/uL MCV (80.0-100.0) fL Plt Count (150-450) k/uL Neutrophils # (Manual) (1.3-7.7) k/uL Monocytes # (Manual) (0-1.0) k/uL PT (9.0-12.0) sec INR (<1.2) APTT 67.2 H 45.0 H (22.0-30.0) sec BUN (9-20) mg/dL Glucose (74-99) mg/dL POC Glucose (mg/dL) (75-99) mg/dL Total Bilirubin (0.2-1.3) mg/dL AST (17-59) U/L ALT (4-49) U/L Troponin I 116.000 H* (0.000-0.034) ng/mL Total Protein (6.3-8.2) g/dL Urine Protein (Negative) Urine Blood (Negative) Urine RBC (0-5) /hpf Hyaline Casts (0-2) /lpf Urine Mucus (None) /hpf
[2020-07-06] MEDS: HEPARIN SOD,PORK IN 0.45% NACL 25,000 UNIT in 0.45% NACL 1 250ML.BAG IV SCH (20:40)
[2020-07-06] MEDS ORDERED: SPIRONOLACTONE 25 MG TAB PO SCH (21:00)
[2020-07-07 04:57] LABS: INR 1.7 (<1.2); Partial Thromboplastin Time 36.7 sec (22.0-30.0); Prothrombin Time 17.1 sec (9.0-12.0)
[2020-07-07 05:01] LABS: Calcium 8.5 mg/dL (8.4-10.2); Total Bilirubin 2.4 mg/dL (0.2-1.3); Total Protein 5.7 g/dL (6.3-8.2)
[2020-07-07 05:13] LABS: Magnesium 1.8 mg/dL (1.6-2.3); Potassium 4.3 mmol/L (3.5-5.1)
[2020-07-07 05:23] LABS: Basophils % (A) 0 %; Eosinophils % (A) 0 %; HCT 49.1 % (39.0-53.0); HGB 15.1 gm/dL (13.0-17.5); Hypochromasia Moderate; Lymphocytes # (A) 0.8 k/uL (1.0-4.8); Lymphocytes % (A) 8 %; MCH 31.8 pg (25.0-35.0); MCHC 30.9 g/dL (31.0-37.0); MCV 103.2 fL (80.0-100.0); Macrocytosis Slight; Mean Platelet Volume 9.7; Monocytes % (A) 10 %; Neutrophils # (A) 7.7 k/uL (1.3-7.7); Neutrophils % (A) 80 %; RBC 4.75 m/uL (4.30-5.90); RDW 14.2 % (11.5-15.5); WBC 9.7 k/uL (3.8-10.6)
[2020-07-07 05:44] LABS: Platelet Count 98 k/uL (150-450)
--- NOTE | 2020-07-07 08:38 | XR ---
EXAMINATION TYPE: XR chest 1V portable DATE OF EXAM: 07/07/2020 CLINICAL HISTORY: Difficulty breathing progress study. TECHNIQUE: Single AP portable upright view of the chest is obtained. COMPARISON: Chest x-ray from 2 days earlier FINDINGS: Background chronic parenchymal change bilaterally with left basilar opacity. Persistent ca rdiomegaly with multi lead pacemaker/AICD and atherosclerotic aorta. High riding right humeral head c onsistent with chronic rotator cuff tear. Underlying scoliotic curvature or positioning. IMPRESSION: Overall stable findings, chronic right pleural changes and cardiomegaly with small to m oderate left pleural effusion and associated left basilar compressive atelectasis felt to be present.
[2020-07-07] MEDS ORDERED: METOPROLOL TARTRATE 12.5 MG TAB PO SCH (09:00)
[2020-07-07] MEDS: PANTOPRAZOLE 40 MG TABLET PO SCH (09:18)
[2020-07-07] MEDS: ATORVASTATIN 40 MG TAB PO SCH (09:18)
[2020-07-07] MEDS: ASPIRIN 81 MG PO SCH (09:18)
[2020-07-07] MEDS: DOBUTamine DRIP 500 MG in DEXTROSE/WATER 1 250ML.BAG IV SCH (09:19)
[2020-07-07] MEDS: FUROSEMIDE 100 MG in SODIUM CHLORIDE 0.9% 90 ML IV SCH ×2 (09:19→22:03)
[2020-07-07] MEDS: SPIRONOLACTONE 25 MG TAB PO SCH (09:19)
[2020-07-07] MEDS: HEPARIN SOD,PORK IN 0.45% NACL 25,000 UNIT in 0.45% NACL 1 250ML.BAG IV SCH (09:22)
--- NOTE | 2020-07-07 09:37 | PN ---
PROGRESS NOTE Mr. Ho is a gentleman with ischemic cardiomyopathy with an ICD. It appears he had a prior VT, probably a day or so before arrival. Troponin was quite high. His ejection fraction is less than 20%. He is on a Lasix drip as well as heparin drip. Hemodynamically, he is fair. His blood pressure is acceptable. No chest pain. Vitals are stable 106/60, pulse rate is 110, paced rhythm, JVD 1 cm, no carotid bruit. S1-S2 heard normally, short systolic murmur noted. Lungs reveal diminished air entry, rest of physical exam unchanged. Prognosis remains poor for this patient given his poor LV function, advanced age and late arrival after VT. Will continue conservative management. Continue the Lasix drip and heparin drip for now. I will check additional troponins and decrease the Aldactone from 25 b.i.d. to 25 mg daily and continue the Lasix drip. Explained to the patient his overall prognosis is poor. We will do supportive care and management for now. No aggressive intervention. Patient is aware of the fact that his prognosis is quite poor. MMODL / IJN: [id number] /
--- NOTE | 2020-07-07 12:00 | P.PN ---
Subjective Progress Note Date: 07/07/20 Principal diagnosis: Acute non-ST elevation myocardial infarction and acute on chronic systolic congestive heart failure This is a 80-year-old white male with history of cardiomyopathy and LV dysfunction. No history of coronary artery disease, previous AICD placement, normally follows up with a tactical response group officer in [place]. Patient has been feeling sick for the last 4 days, patient has been experiencing intermittent episodes of nausea, unable to hold anything down, nauseated, vomiting at times, and he had some burning sensation in the chest. His neighbors were concerned, and the paramedics were called in on Monday. However the patient refused to come to the emergency room initially, but later on he changed his mind. Patient presented to the ER, and he was noted to have a paced rhythm, he was also noted to have congestive heart failure, with significantly elevated troponin level, significantly elevated pro BNP level, admitted, placed on diuretics, seen by cardiology on consultation, Though on heparin, echocardiogram showed significant LV dysfunction with ejection fraction of less than 20%. After my evaluation, I recommended a Lasix drip at 5 mg per hour, I also recommended dobutamine at 5 mcg/kg/m. Patient was reevaluated today on 07/07/20, remains in the ICU, patient remains on Lasix drip at 10 mg per hour, and on Dobutrex at 5 mcg/kg/m. Clinically the patient is feeling better, patient has a negative balance of over 950 ML in the last 24 hours. His renal functioning is improving. His IV fluid is at KVO. However while I was seeing the patient, he had a 10 beat run of nonsustained ventricular tachycardia. Patient had no symptoms, this was mostly seen on the monitor. Hence I cut down his dose of Imitrex to 2.5 mcg/kg/m, and asked the nurses to make sure that cardiology is aware. Patient has mostly paced rhythm most of the time, at times he has tachycardia and atrial fibrillation. Chest x- ray is again about the same. Clinically he feels better. And breathing a lot easier. WBC count 9.7 hemoglobin is 15.1. INR is 1.7. BUN is 43 creatinine is 1.12 improved compared to yesterday. Liver profile is also improving compared to yesterday. And his troponin is down to 64 from 116 yesterday. Objective - Vital Signs Vital signs: Vital Signs Temp 97.9 F 07/07/20 08:00 Pulse 79 07/07/20 11:00 Resp 28 H 07/07/20 11:00 BP 100/66 07/07/20 11:00 Pulse Ox 97 07/07/20 11:00 Intake & Output 07/06/20 07/07/20 07/07/20 18:59 06:59 18:59 Intake Total 176.033 438.8 282.818 Output Total 660 905 485 Balance -483.967 -466.2 -202.182 Weight 98.6 kg 99.1 kg Intake: IV 85 130 50 0.9 85 130 50 Intake, IV Titration 91.033 308.8 232.818 Amount DOBUTamine DRIP 500 mg In 250 5.423 Dextrose/Water 1 250ml. bag @ 5 MCG/KG/MIN 14.79 mls/hr IV .[id number] [facility] Rx #:[id number] Furosemide 100 mg In 100 Sodium Chloride 0.9% 90 ml @ 10 MG/HR 10 mls/hr IV .Q10H [facility] Rx#: [id number] Heparin Sod,Pork in 0.45% 91.033 58.8 127.395 NaCl 25,000 unit In 0.45 % NaCl 1 250ml.bag @ 10. 113 UNITS/KG/HR 10 mls/hr IV .Q24H [facility] Rx#: [id number] Output: Urine 660 905 485 Other: # Voids 1 1 - Exam Physical Exam: Revealed a 80-year-old white male, pleasant, on 4 L nasal cannula, O2 saturations 94% Head: Atraumatic, normocephalic. HEENT:[Neck is supple.] [No neck masses.] [No thyromegaly.] Positive JVD. Chest: [Crackles at the bases, no rhonchi and no wheezes. Symmetrical chest expansion.] Cardiac Exam: Paced rhythm, normal S1 and S2, 2/6 systolic murmur thought the precordium Abdomen: [Obese, Soft, nontender, no megaly, no rebound, no guarding, normal yue wel sounds.] Extremities: [No clubbing, 1+ bipedal edema, no cyanosis.] Neurological Exam: [No focal neurologic deficit.] Alert oriented 3. Psychiatric: Normal mood, affect and normal mental status examination. Musculoskeletal: No deformities noted limitation of range of motion Skin: No rashes - Labs CBC & Chem 7: 07/07/20 04:21 07/07/20 04:21 Labs: Abnormal Lab Results - Last 24 Hours (Table) 07/06/20 07/06/20 07/06/20 Range/Units 04:17 12:11 18:41 MCV (80.0-100.0) fL MCHC (31.0-37.0) g/dL Plt Count (150-450) k/uL Lymphocytes # (1.0-4.8) k/uL PT (9.0-12.0) sec INR (<1.2) APTT 67.2 H 45.0 H (22.0-30.0) sec Sodium (137-145) mmol/L BUN (9-20) mg/dL Total Bilirubin (0.2-1.3) mg/dL AST (17-59) U/L ALT (4-49) U/L Troponin I 116.000 H* (0.000-0.034) ng/mL Total Protein (6.3-8.2) g/dL Albumin (3.5-5.0) g/dL 07/07/20 07/07/20 07/07/20 Range/Units 04:21 04:21 04:21 MCV 103.2 H (80.0-100.0) fL MCHC 30.9 L (31.0-37.0) g/dL Plt Count 98 L (150-450) k/uL Lymphocytes # 0.8 L (1.0-4.8) k/uL PT 17.1 H (9.0-12.0) sec INR 1.7 H (<1.2) APTT 36.7 H (22.0-30.0) sec Sodium 134 L (137-145) mmol/L BUN 43 H (9-20) mg/dL Total Bilirubin 2.4 H (0.2-1.3) mg/dL AST 272 H (17-59) U/L ALT 90 H (4-49) U/L Troponin I (0.000-0.034) ng/mL Total Protein 5.7 L (6.3-8.2) g/dL Albumin 3.0 L (3.5-5.0) g/dL 07/07/20 Range/Units 08:02 MCV (80.0-100.0) fL MCHC (31.0-37.0) g/dL Plt Count (150-450) k/uL Lymphocytes # (1.0-4.8) k/uL PT (9.0-12.0) sec INR (<1.2) APTT (22.0-30.0) sec Sodium (137-145) mmol/L BUN (9-20) mg/dL Total Bilirubin (0.2-1.3) mg/dL AST (17-59) U/L ALT (4-49) U/L Troponin I 64.700 H* (0.000-0.034) ng/mL Total Protein (6.3-8.2) g/dL Albumin (3.5-5.0) g/dL Microbiology - Last 24 Hours (Table) 07/05/20 18:20 Blood Culture - Preliminary Blood No Growth after 24 hours Assessment and Plan Assessment: Impression: Acute hypoxic respiratory failure secondary to acute on chronic systolic congestive heart failure and pulmonary edema. Acute non-ST elevation myocardial infarction Episodes of nonsustained ventricular tachycardia Acute on chronic systolic congestive heart failure Severe cardiomyopathy and LV dysfunction Elevated liver enzymes secondary to hepatic congestion and congestive heart failure History of AICD placement. Recommendation: Continue heparin. Continue diuretics, patient will remain on Lasix at 10 mg per hour for today. Likely switch to oral Lasix tomorrow. Decreased Dobutrex to 2.5 mcg/kg/m. Continue to monitor the patient in the ICU. May eventually require cardiac catheterization. However this is to be decided upon by cardiology who are already on the case. We'll continue to follow. Prognosis is poor and guarded considering his LV dysfunction. Time with Patient: Less than 30
[2020-07-07 12:17] LABS: Hepatitis A Antibody IgM Non-Reactive (Non-Reactive); Hepatitis B Core IgM Non-Reactive (Non-Reactive); Hepatitis B Surface Antigen Non-Reactive (Non-Reactive); Hepatitis C IgG Antibody Non-Reactive (Non-Reactive)
--- NOTE | 2020-07-07 16:16 | P.PN ---
Subjective Progress Note Date: 07/07/20 Principal diagnosis: Shortness of breath Patient seen and examined at bedside. Patient states that her shortness of breath has significantly improved since hospital stay. However, patient continues to have intermittent exertional dyspnea. Patient denies nausea, vomiting, fevers, chills, or chest pain. While being evaluated by pulmonary patient had a 10 beat run of nonsustained ventricular tachycardia. Cardiology is following. Patient is a 80-year-old male with a history of congestive heart failure status post AICD, dyslipidemia, and tobacco abuse who presented to the emergency department with shortness of breath, nausea, vomiting, and dizziness. Currently admitted to the ICU on treatment for cardiogenic shock. Objective - Vital Signs Vital signs: Vital Signs Temp 97.8 F 07/07/20 12:00 Pulse 74 07/07/20 15:00 Resp 27 H 07/07/20 15:00 BP 97/67 07/07/20 15:00 Pulse Ox 92 L 07/07/20 15:00 Intake & Output 07/06/20 07/07/20 07/07/20 18:59 06:59 18:59 Intake Total 176.033 438.8 322.818 Output Total 660 905 655 Balance -483.967 -466.2 -332.182 Weight 98.6 kg 99.1 kg Intake: IV 85 130 90 0.9 85 130 90 Intake, IV Titration 91.033 308.8 232.818 Amount DOBUTamine DRIP 500 mg In 250 5.423 Dextrose/Water 1 250ml. bag @ 5 MCG/KG/MIN 14.79 mls/hr IV .[id number] [facility] Rx #:[id number] Furosemide 100 mg In 100 Sodium Chloride 0.9% 90 ml @ 10 MG/HR 10 mls/hr IV .Q10H [facility] Rx#: [id number] Heparin Sod,Pork in 0.45% 91.033 58.8 127.395 NaCl 25,000 unit In 0.45 % NaCl 1 250ml.bag @ 10. 113 UNITS/KG/HR 10 mls/hr IV .Q24H [facility] Rx#: [id number] Output: Urine 660 905 655 Other: # Voids 1 1 - Exam General: [non toxic], [no distress], [appears at stated age] Derm: [warm], [dry] Head: [atraumatic], [normocephalic], [symmetric] Eyes: [EOMI], [no lid lag], [anicteric sclera] Mouth: [no lip lesion], [mucus membranes moist] Cardiovascular: [S1S2 reg], [grade 2/6 systolic murmur], [positive posterior tibial pulse bilateral], Lungs: [CTA bilateral], [no rhonchi, no rales] , [no accessory muscle use] Abdominal: [soft], [ nontender to palpation], [no guarding], [no appreciable organomegaly] Ext: [no gross muscle atrophy], [+1edema], [no contractures] Neuro: [ CN II-XI grossly intact], [no focal neuro deficits] Psych: [Alert], [oriented], [appropriate affect] - Labs CBC & Chem 7: 07/07/20 04:21 07/07/20 04:21 Labs: Abnormal Lab Results - Last 24 Hours (Table) 07/06/20 07/06/20 07/07/20 Range/Units 04:17 18:41 04:21 MCV 103.2 H (80.0-100.0) fL MCHC 30.9 L (31.0-37.0) g/dL Plt Count 98 L (150-450) k/uL Lymphocytes # 0.8 L (1.0-4.8) k/uL PT (9.0-12.0) sec INR (<1.2) APTT 45.0 H (22.0-30.0) sec Sodium (137-145) mmol/L BUN (9-20) mg/dL Total Bilirubin (0.2-1.3) mg/dL AST (17-59) U/L ALT (4-49) U/L Troponin I 116.000 H* (0.000-0.034) ng/mL Total Protein (6.3-8.2) g/dL Albumin (3.5-5.0) g/dL 07/07/20 07/07/20 07/07/20 Range/Units 04:21 04:21 08:02 MCV (80.0-100.0) fL MCHC (31.0-37.0) g/dL Plt Count (150-450) k/uL Lymphocytes # (1.0-4.8) k/uL PT 17.1 H (9.0-12.0) sec INR 1.7 H (<1.2) APTT 36.7 H (22.0-30.0) sec Sodium 134 L (137-145) mmol/L BUN 43 H (9-20) mg/dL Total Bilirubin 2.4 H (0.2-1.3) mg/dL AST 272 H (17-59) U/L ALT 90 H (4-49) U/L Troponin I 64.700 H* (0.000-0.034) ng/mL Total Protein 5.7 L (6.3-8.2) g/dL Albumin 3.0 L (3.5-5.0) g/dL 07/07/20 Range/Units 14:43 MCV (80.0-100.0) fL MCHC (31.0-37.0) g/dL Plt Count (150-450) k/uL Lymphocytes # (1.0-4.8) k/uL PT (9.0-12.0) sec INR (<1.2) APTT 49.9 H (22.0-30.0) sec Sodium (137-145) mmol/L BUN (9-20) mg/dL Total Bilirubin (0.2-1.3) mg/dL AST (17-59) U/L ALT (4-49) U/L Troponin I (0.000-0.034) ng/mL Total Protein (6.3-8.2) g/dL Albumin (3.5-5.0) g/dL Microbiology - Last 24 Hours (Table) 07/05/20 18:20 Blood Culture - Preliminary Blood No Growth after 24 hours Assessment and Plan Assessment: 1. Acute on chronic systolic congestive heart failure ejection fraction less than 20% with cardiogenic shock, AICD in place -Continue with Lasix drip if: Full urine output is not achieved increase to 10 mg/h -Aldactone -Continue with dobutamine -Beta agustina and YUE inhibitor on hold secondary to hypotension -Cardiology recommendations appreciated -Critical care recommendations appreciated -Possible cardiac cath in the near future 2. Non-STEMI secondary to #1 -Heparin drip - ASA, lipitor 3. Transaminitis -Suspect secondary to hepatic congestion with underlying liver disease secondary to steatohepatitis -Repeat in a.m. after diuresis - check acute hepatitis panel 4. Coagulopathy, undetermined etiology -Repeat INR in a.m. - possibly realted to underlying liver disease 5. Leukocytosis resolved -Suspect reactive and secondary to stress -Follow CBC 6. Thrombocytopenia -Undetermined etiology -Follow CBC 7. Between the patient's thrombocytopenia, elevated INR, transaminitis secondary to his return for underlying liver disease. However due to his acute hypotension in [place] CHF we will delay further invasive testing until the patient is more stable and there is hepatomegaly but no signs of cirrhosis on liver ultrasound. Consult GI and check hepatitis profile DVT prophylaxis:heparin gtt Discussed with: patient, nursing Anticipated discharge: 4-[address]: [facility] Time with Patient: Greater than 30
--- NOTE | 2020-07-07 18:53 | CONS ---
CONSULTATION DATE OF DICTATION: 07/07/2020 REASON FOR CONSULTATION: Elevated LFTs. HISTORY OF PRESENT ILLNESS: The patient is a 80-year-old pleasant white male with a history of hypertension who presented to the hospital complaining of shortness of breath, nausea, vomiting, dizziness, not feeling well 2 days ago. He came into the emergency room 2 days ago and was noted to have congestive heart failure and significantly elevated troponin level, and Cardiology has been consulted. He did have an echocardiogram that showed decreased LV function with an ejection fraction of 20%. While in the hospital he was noted to have elevated serum transaminases, and we are consulted in regard to this issue. The patient denies any history of chronic liver disease in the past. No history of jaundice or hepatitis. He has remote history of alcohol use, but he drank once or twice a week. No history of alcohol abuse. During this hospitalization he was noted to have elevated ALT and AST, with AST 656 and ALT of 101. Total bilirubin was 3.1 and alkaline phosphatase was 90. Troponin was 107. INR is 1.6. Repeat labs today show slight improvement of the bilirubin to 2.4. AST is 272 and ALT is 90. He denies any abdominal pain, reports no nausea, vomiting. He is feeling much better today. He was noted to have persistent hypertension at the time of admission to the hospital. He was started on IV dobutamine drip. PAST MEDICAL HISTORY: Past medical history is significant for hypertension, history of cardiomyopathy, hypercholesteremia. HOME MEDICATIONS: Flomax, Toprol, Imdur, Lasix, Lipitor. ALLERGIES: NONE. SOCIAL HISTORY: No smoking. Remote history of alcohol use, as mentioned above. REVIEW OF SYSTEMS: CARDIOPULMONARY: No chest pain or shortness of breath. GENITOURINARY: No dysuria or hematuria. MUSCULOSKELETAL: Unremarkable. SKIN: Unremarkable. ENDOCRINE: Unremarkable. PSYCHIATRIC: Unremarkable. NEUROLOGY: Unremarkable. CONSTITUTIONAL: No recent weight loss. No fever, chills, night sweats. PAST SURGICAL HISTORY: Appendectomy, tonsillectomy, AICD placement 7 years ago. PHYSICAL EXAMINATION: He appears comfortable. No apparent distress. VITAL SIGNS: Stable. Blood pressure is 97/62, pulse rate 84 per minute and afebrile. HEENT examination unremarkable. Conjunctivae pink. Sclerae anicteric. Oral cavity no lesions. NECK: No JVD or lymph node enlargement. CHEST: Clear to auscultation. HEART: Regular rate and rhythm. ABDOMEN: Soft. Liver and spleen were not palpable. Bowel sounds are positive. No ascites. EXTREMITIES: No pedal edema. SKIN: No rashes. NEUROLOGIC: Alert and oriented x3. No focal deficits. LABS/IMAGING: Labs done from today: Bilirubin is 2.4, AST 272, ALT 90, alkaline phosphatase 65. Two days ago T-bilirubin was 3.1, AST was 656 and ALT was 101. INR is 1.7, platelets 98,000, WBC 9.7, hemoglobin 15.1 with an MCV of 103. He did have ultrasound of the right upper quadrant done yesterday that showed mild hepatomegaly, hypoechoic appearance with echogenic appearance to the periportal fat. Gallbladder has prominent wall thickening. No stones noted. IMPRESSION: 1. Exacerbation of congestive heart failure. Cardiology and Pulmonary are following the patient closely. Presently on dobutamine drip as well as IV Lasix drip. Shortness of breath has improved. 2. Elevated serum transaminases in this patient with no history of chronic liver disease in the past, most likely related to passive venous congestion related to right-sided heart failure patient may have occult chronic liver disease that has not been diagnosed, as evidenced by slightly decreased platelet count, mild coagulopathy and elevated LFTs. 3. History of AICD placement 7 years ago. 4. History of cardiomyopathy with a recent echocardiogram showing an ejection fraction of 20%. RECOMMENDATIONS: 1. Obtain hepatitis serologies for A, B and C. 2. Maintain hemodynamic stability. 3. Avoid hepatotoxic medications. 4. Monitor LFTs on a close basis. 5. Will follow with you closely. Thank you for this consultation. MMODL / IJN: [id number] /
[2020-07-07 23:27] LABS: Ferritin 119.6 ng/mL (22.0-322.0)
[2020-07-07 23:48] LABS: % Iron Saturation 4.05 (15.00-50.00)
[2020-07-08 00:35] LABS: Protein, Total 5.8 g/dL (6.2-8.2)
[2020-07-08 04:07] LABS: Alpha Fetoprotein, Tumor Mkr <2.5 ng/mL (0.0-7.9)
[2020-07-08 05:33] LABS: Basophils % (A) 0 %; Eosinophils % (A) 1 %; HCT 48.3 % (39.0-53.0); HGB 14.8 gm/dL (13.0-17.5); Hypochromasia Moderate; Lymphocytes % (A) 12 %; MCH 31.3 pg (25.0-35.0); MCHC 30.5 g/dL (31.0-37.0); MCV 102.5 fL (80.0-100.0); Macrocytosis Slight; Monocytes # (A) 0.9 k/uL (0-1.0); Monocytes % (A) 11 %; Neutrophils # (A) 6.4 k/uL (1.3-7.7); Neutrophils % (A) 75 %; Platelet Count 124 k/uL (150-450); RBC 4.71 m/uL (4.30-5.90); RDW 14.3 % (11.5-15.5); WBC 8.5 k/uL (3.8-10.6)
[2020-07-08 05:42] LABS: Albumin 3.1 g/dL (3.5-5.0); Calcium 8.4 mg/dL (8.4-10.2); Potassium 3.8 mmol/L (3.5-5.1); Total Bilirubin 2.5 mg/dL (0.2-1.3); Total Protein 5.6 g/dL (6.3-8.2)
[2020-07-08] MEDS: PANTOPRAZOLE 40 MG TABLET PO SCH (06:30)
[2020-07-08] MEDS: HEPARIN SOD,PORK IN 0.45% NACL 25,000 UNIT in 0.45% NACL 1 250ML.BAG IV SCH (06:33)
[2020-07-08] MEDS ORDERED: POTASSIUM BICARBONATE/CIT AC 20 MEQ TABLET.EFF NG-TUBE SCH (07:00)
--- NOTE | 2020-07-08 07:36 | XR ---
EXAMINATION TYPE: XR chest 1V portable DATE OF EXAM: 07/08/2020 HISTORY: Shortness of breath. COMPARISON: 07/07/2020 TECHNIQUE: Single view of the chest is submitted. FINDINGS: Demonstrated are scattered senescent parenchymal change. Left basilar atelectasis, infiltrate and/or effusion. Pulmonary venous congestion without significant change. The heart is stable. Hilar and mediastinal structures are within normal limits. Degenerative changes are seen of the dorsal spine. IMPRESSION: 1. Stable chest.
[2020-07-08] MEDS: DOBUTamine DRIP 500 MG in DEXTROSE/WATER 1 250ML.BAG IV SCH ×2 (07:50→14:23)
[2020-07-08] MEDS: ASPIRIN 81 MG PO SCH (08:36)
[2020-07-08] MEDS: SPIRONOLACTONE 25 MG TAB PO SCH (08:36)
[2020-07-08] MEDS: METOPROLOL TARTRATE 12.5 MG TAB PO SCH ×2 (08:36→20:25)
[2020-07-08] MEDS: HEPARIN SODIUM,PORCINE 5,000 UNIT/ML 1 ML VIAL SQ SCH ×3 (08:37→23:34)
[2020-07-08] MEDS: ATORVASTATIN 40 MG TAB PO SCH (08:37)
--- NOTE | 2020-07-08 09:56 | US ---
EXAMINATION TYPE: US chest DATE OF EXAM: 07/08/2020 COMPARISON: Chest x ray CLINICAL HISTORY: Markings for thoracentesis by pulmonary staff. TECHNIQUE: Targeted ultrasound of the posterior lower bilateral hemithoraces EXAM MEASUREMENTS: Left Pleural Effusion pocket size: 8.2 cm Left skin surface to fluid distance: 1.8 cm Right side marked for possible thoracentesis outside the dept. Left side marked for possible thoracentesis outside the dept. Pulmonologists are able to review the images in the patient?s EMR. IMPRESSIONS: Pleural effusion as noted.
--- NOTE | 2020-07-08 10:23 | PN ---
PROGRESS NOTE Mr. Ho is a 80-year-old gentleman with ischemic cardiomyopathy, ejection fraction of less than 20% with ICD. He came in somewhat late with an [place]. He is on a dobutamine drip and Lasix drip, dobutamine is at 2.5 mcg. He seems to be doing much better today compared to yesterday. He is sitting up without symptoms. No overt heart failure. He has been able to take the beta agustina 12.5 mg without a problem. Plan is to continue his current medical regimen, switch him from IV to subcu heparin, increase Lopressor 12.5 mg b.i.d. Physical exam reveals blood pressure of 112/70, pulse rate of about 110 per minute, paced rhythm JVD 1 cm, no carotid bruit. S1-S2 heard normally, short systolic murmur at the base is audible. Second heart sound is preserved. Lungs are clear. Abdomen and lower extremity exam unchanged. Plan is to continue current regimen increase activity and hopefully tomorrow we will switch him to IV push Lasix and continue other medications. Prognosis remains guarded. MMODL / IJN: [id number] /
[2020-07-08 10:39] LABS: Ceruloplasmin 38.9 mg/dL (20.0-60.0)
[2020-07-08] MEDS ORDERED: ONDANSETRON 4 MG/2 ML VIAL ONE (10:51)
[2020-07-08] MEDS: ONDANSETRON 4 MG/2 ML VIAL IVP PRN ×2 (10:56→20:25)
[2020-07-08] MEDS: FUROSEMIDE 100 MG in SODIUM CHLORIDE 0.9% 90 ML IV SCH (10:57)
[2020-07-08] MEDS ORDERED: Potassium Replacement Protocol 1 EACH MISC MISCELLANE PRN (11:07)
[2020-07-08] MEDS ORDERED: POTASSIUM CHLORIDE 10 MEQ in WATER FOR INJECTION 1 100ML.BAG IVPB SCH (11:15)
[2020-07-08 13:17] LABS: Albumin 3.05 g/dL (3.80-4.90); Gamma Globulin 0.86 g/dL (0.70-1.50)
--- NOTE | 2020-07-08 13:38 | P.PN ---
Subjective Progress Note Date: 07/08/20 Principal diagnosis: Acute non-ST elevation myocardial infarction and acute on chronic systolic congestive heart failure This is a 80-year-old white male with history of cardiomyopathy and LV dysfunction. No history of coronary artery disease, previous AICD placement, normally follows up with a refrigeration engine operator in [place]. Patient has been feeling sick for the last 4 days, patient has been experiencing intermittent episodes of nausea, unable to hold anything down, nauseated, vomiting at times, and he had some burning sensation in the chest. His neighbors were concerned, and the paramedics were called in on Monday. However the patient refused to come to the emergency room initially, but later on he changed his mind. Patient presented to the ER, and he was noted to have a paced rhythm, he was also noted to have congestive heart failure, with significantly elevated troponin level, significantly elevated pro BNP level, admitted, placed on diuretics, seen by cardiology on consultation, Though on heparin, echocardiogram showed significant LV dysfunction with ejection fraction of less than 20%. After my evaluation, I recommended a Lasix drip at 5 mg per hour, I also recommended dobutamine at 5 mcg/kg/m. Patient was reevaluated today on 07/07/20, remains in the ICU, patient remains on Lasix drip at 10 mg per hour, and on Dobutrex at 5 mcg/kg/m. Clinically the patient is feeling better, patient has a negative balance of over 950 ML in the last 24 hours. His renal functioning is improving. His IV fluid is at KVO. However while I was seeing the patient, he had a 10 beat run of nonsustained ventricular tachycardia. Patient had no symptoms, this was mostly seen on the monitor. Hence I cut down his dose of Imitrex to 2.5 mcg/kg/m, and asked the nurses to make sure that cardiology is aware. Patient has mostly paced rhythm most of the time, at times he has tachycardia and atrial fibrillation. Chest x- ray is again about the same. Clinically he feels better. And breathing a lot easier. WBC count 9.7 hemoglobin is 15.1. INR is 1.7. BUN is 43 creatinine is 1.12 improved compared to yesterday. Liver profile is also improving compared to yesterday. And his troponin is down to 64 from 116 yesterday. Reevaluated today on 07/08/20, remains in the ICU, remains on Lasix drip at 10 mg per hour and on Dobutrex 2.5 mcg/kg/m. Patient was seen by cardiology, and according to the note by the refrigeration engine operator, no plans to do any cardiac catheterization, no plans to do any interventional studies, basically recommended conservative medical management. Clinically the patient is feeling better, breathing easier, chest x-ray continues to show evidence of congestive heart failure and left pleural effusion. Patient is a -2.5 L in the last 2 days. Ultrasound of the chest showed good size pleural effusion on the left side, may consider thoracentesis on this patient. Patient is now on subcu heparin and set of IV heparin. CBC is relatively normal electrolytes are normal BUN is 41 and creatinine is 1.04. Objective - Vital Signs Vital signs: Vital Signs Temp 97.5 F L 07/08/20 12:00 Pulse 80 07/08/20 12:00 Resp 35 H 07/08/20 12:00 BP 85/60 07/08/20 12:00 Pulse Ox 96 07/08/20 12:00 Intake & Output 07/07/20 07/08/20 07/08/20 18:59 06:59 18:59 Intake Total 352.818 433.917 559.75 Output Total 880 1310 455 Balance -527.182 -876.083 104.75 Weight 98.747 kg Intake: IV 120 120 60 0.9 120 120 60 Intake, IV Titration 232.818 313.917 99.75 Amount DOBUTamine DRIP 500 mg In 5.423 Dextrose/Water 1 250ml. bag @ 5 MCG/KG/MIN 14.79 mls/hr IV .[id number] [facility] Rx #:[id number] Furosemide 100 mg In 100 63.917 99.75 Sodium Chloride 0.9% 90 ml @ 10 MG/HR 10 mls/hr IV .Q10H [facility] Rx#: [id number] Heparin Sod,Pork in 0.45% 127.395 250 NaCl 25,000 unit In 0.45 % NaCl 1 250ml.bag @ 10. 113 UNITS/KG/HR 10 mls/hr IV .Q24H [facility] Rx#: [id number] Oral 400 Output: Urine 880 1310 455 Other: Voiding Method Indwelling Catheter Indwelling Catheter # Voids 1 - Exam Physical Exam: Revealed a 80-year-old white male, pleasant, on 4 L nasal cannula, O2 saturations 97%. Head: Atraumatic, normocephalic. HEENT:[Neck is supple.] [No neck masses.] [No thyromegaly.] Positive JVD. Chest: [Diminished breath sounds at the bases no crackles nor rhonchi no wheezes, dullness at the left base. Cardiac Exam: Paced rhythm, normal S1 and S2, 2/6 systolic murmur thought the precordium Abdomen: [Obese, Soft, nontender, no megaly, no rebound, no guarding, normal bowel sounds.] Extremities: [No clubbing, 1+ bipedal edema, no cyanosis.] Neurological Exam: [No focal neurologic deficit.] Alert oriented 3. Psychiatric: Normal mood, affect and normal mental status examination. Musculoskeletal: No deformities noted limitation of range of motion Skin: No rashes - Labs CBC & Chem 7: 07/08/20 04:27 07/08/20 04:27 Labs: Abnormal Lab Results - Last 24 Hours (Table) 07/07/20 07/07/20 07/07/20 Range/Units 14:43 18:06 18:06 MCV (80.0-100.0) fL MCHC (31.0-37.0) g/dL Plt Count (150-450) k/uL APTT 49.9 H (22.0-30.0) sec Sodium (137-145) mmol/L BUN (9-20) mg/dL Glucose (74-99) mg/dL Iron 14 L (65-175) ug/dL % Saturation 4.05 L (15.00-50.00) Total Bilirubin (0.2-1.3) mg/dL AST (17-59) U/L ALT (4-49) U/L Troponin I 50.200 H* (0.000-0.034) ng/mL Total Protein (6.3-8.2) g/dL Total Protein (PEP) (6.2-8.2) g/dL Albumin (3.5-5.0) g/dL Albumin (PEP) (3.80-4.90) g/dL 07/07/20 07/08/20 07/08/20 Range/Units 18:06 04:27 04:27 MCV 102.5 H (80.0-100.0) fL MCHC 30.5 L (31.0-37.0) g/dL Plt Count 124 L (150-450) k/uL APTT (22.0-30.0) sec Sodium 132 L (137-145) mmol/L BUN 41 H (9-20) mg/dL Glucose 102 H (74-99) mg/dL Iron (65-175) ug/dL % Saturation (15.00-50.00) Total Bilirubin 2.5 H (0.2-1.3) mg/dL AST 169 H (17-59) U/L ALT 88 H (4-49) U/L Troponin I (0.000-0.034) ng/mL Total Protein 5.6 L (6.3-8.2) g/dL Total Protein (PEP) 5.8 L (6.2-8.2) g/dL Albumin 3.1 L (3.5-5.0) g/dL Albumin (PEP) 3.05 L (3.80-4.90) g/dL 07/08/20 Range/Units 04:27 MCV (80.0-100.0) fL MCHC (31.0-37.0) g/dL Plt Count (150-450) k/uL APTT 41.9 H (22.0-30.0) sec Sodium (137-145) mmol/L BUN (9-20) mg/dL Glucose (74-99) mg/dL Iron (65-175) ug/dL % Saturation (15.00-50.00) Total Bilirubin (0.2-1.3) mg/dL AST (17-59) U/L ALT (4-49) U/L Troponin I (0.000-0.034) ng/mL Total Protein (6.3-8.2) g/dL Total Protein (PEP) (6.2-8.2) g/dL Albumin (3.5-5.0) g/dL Albumin (PEP) (3.80-4.90) g/dL Microbiology - Last 24 Hours (Table) 07/05/20 18:20 Blood Culture - Preliminary Blood No Growth after 48 hours Assessment and Plan Assessment: Impression: Acute hypoxic respiratory failure secondary to acute on chronic systolic congestive heart failure and pulmonary edema. Acute non-ST elevation myocardial infarction Episodes of nonsustained ventricular tachycardia Acute on chronic systolic congestive heart failure Severe cardiomyopathy and LV dysfunction Elevated liver enzymes secondary to hepatic congestion and congestive heart failure History of AICD placement. Left pleural effusion Recommendation: Continue subcu heparin Continue diuretics, patient will remain on Lasix at 10 mg per hour for today. Dobutrex to 2.5 mcg/kg/m. Consider left-sided thoracentesis today or tomorrow. Especially in the chest x- ray does not show improvement in the next 24 hours. Continue to monitor the patient in the ICU. Cardiology is not recommending any interventional studies prefer to treat the patient conservatively considering his severe cardiomyopathy and poor prognosis. Time with Patient: Less than 30
--- NOTE | 2020-07-08 14:14 | P.PN ---
Subjective Progress Note Date: 07/08/20 Principal diagnosis: Shortness of breath. Patient seen and examined at bedside. Shortness of breath has improved. Patient's is at bedside. Patient states he feels cold. Patient denies nausea, vomiting, fevers, or chest pain. However, patient did have an episode of nausea this morning and was given Zofran. Patient is a 80-year-old male with a history of congestive heart failure status post AICD, dyslipidemia, and tobacco abuse who presented to the emergency department with shortness of breath, nausea, vomiting, and dizziness. Currently admitted to the ICU on treatment for cardiogenic shock. Objective - Vital Signs Vital signs: Vital Signs Temp 97.5 F L 07/08/20 12:00 Pulse 88 07/08/20 13:00 Resp 32 H 07/08/20 13:00 BP 85/60 07/08/20 13:00 Pulse Ox 90 L 07/08/20 13:00 Intake & Output 07/07/20 07/08/20 07/08/20 18:59 06:59 18:59 Intake Total 352.818 433.917 559.75 Output Total 880 1310 455 Balance -527.182 -876.083 104.75 Weight 98.747 kg Intake: IV 120 120 60 0.9 120 120 60 Intake, IV Titration 232.818 313.917 99.75 Amount DOBUTamine DRIP 500 mg In 5.423 Dextrose/Water 1 250ml. bag @ 5 MCG/KG/MIN 14.79 mls/hr IV .[id number] [facility] Rx #:[id number] Furosemide 100 mg In 100 63.917 99.75 Sodium Chloride 0.9% 90 ml @ 10 MG/HR 10 mls/hr IV .Q10H [facility] Rx#: [id number] Heparin Sod,Pork in 0.45% 127.395 250 NaCl 25,000 unit In 0.45 % NaCl 1 250ml.bag @ 10. 113 UNITS/KG/HR 10 mls/hr IV .Q24H [facility] Rx#: [id number] Oral 400 Output: Urine 880 1310 455 Other: Voiding Method Indwelling Catheter Indwelling Catheter # Voids 1 - Labs CBC & Chem 7: 07/08/20 04:27 07/08/20 04:27 Labs: Abnormal Lab Results - Last 24 Hours (Table) 07/07/20 07/07/20 07/07/20 Range/Units 14:43 18:06 18:06 MCV (80.0-100.0) fL MCHC (31.0-37.0) g/dL Plt Count (150-450) k/uL APTT 49.9 H (22.0-30.0) sec Sodium (137-145) mmol/L BUN (9-20) mg/dL Glucose (74-99) mg/dL Iron 14 L (65-175) ug/dL % Saturation 4.05 L (15.00-50.00) Total Bilirubin (0.2-1.3) mg/dL AST (17-59) U/L ALT (4-49) U/L Troponin I 50.200 H* (0.000-0.034) ng/mL Total Protein (6.3-8.2) g/dL Total Protein (PEP) (6.2-8.2) g/dL Albumin (3.5-5.0) g/dL Albumin (PEP) (3.80-4.90) g/dL 07/07/20 07/08/20 07/08/20 Range/Units 18:06 04:27 04:27 MCV 102.5 H (80.0-100.0) fL MCHC 30.5 L (31.0-37.0) g/dL Plt Count 124 L (150-450) k/uL APTT (22.0-30.0) sec Sodium 132 L (137-145) mmol/L BUN 41 H (9-20) mg/dL Glucose 102 H (74-99) mg/dL Iron (65-175) ug/dL % Saturation (15.00-50.00) Total Bilirubin 2.5 H (0.2-1.3) mg/dL AST 169 H (17-59) U/L ALT 88 H (4-49) U/L Troponin I (0.000-0.034) ng/mL Total Protein 5.6 L (6.3-8.2) g/dL Total Protein (PEP) 5.8 L (6.2-8.2) g/dL Albumin 3.1 L (3.5-5.0) g/dL Albumin (PEP) 3.05 L (3.80-4.90) g/dL 07/08/20 Range/Units 04:27 MCV (80.0-100.0) fL MCHC (31.0-37.0) g/dL Plt Count (150-450) k/uL APTT 41.9 H (22.0-30.0) sec Sodium (137-145) mmol/L BUN (9-20) mg/dL Glucose (74-99) mg/dL Iron (65-175) ug/dL % Saturation (15.00-50.00) Total Bilirubin (0.2-1.3) mg/dL AST (17-59) U/L ALT (4-49) U/L Troponin I (0.000-0.034) ng/mL Total Protein (6.3-8.2) g/dL Total Protein (PEP) (6.2-8.2) g/dL Albumin (3.5-5.0) g/dL Albumin (PEP) (3.80-4.90) g/dL Microbiology - Last 24 Hours (Table) 07/05/20 18:20 Blood Culture - Preliminary Blood No Growth after 48 hours Assessment and Plan Assessment: 1. Acute on chronic systolic congestive heart failure ejection fraction less than 20% with cardiogenic shock, AICD in place -Continue with Lasix drip -Aldactone -Beta agustina restarted -Cardiology recommendations appreciated -Critical care recommendations appreciated -Possible cardiac cath in the near future 2. Non-STEMI secondary to #1 -Heparin drip - ASA, lipitor 3. Transaminitis -Suspect secondary to hepatic congestion with underlying liver disease secondary to steatohepatitis -Repeat in a.m. after diuresis - acute hepatitis panel negative 4. Coagulopathy, undetermined etiology -Repeat INR in a.m. - possibly realted to underlying liver disease 5. Leukocytosis resolved -Suspect reactive and secondary to stress -Follow CBC 6. Thrombocytopenia -Undetermined etiology -Follow CBC 7. Between the patient's thrombocytopenia, elevated INR, transaminitis secondary to his return for underlying liver disease. However due to his acute hypotension in [place] CHF we will delay further invasive testing until the patient is more stable and there is hepatomegaly but no signs of cirrhosis on liver ultrasound. GI recommendations appreciated DVT prophylaxis:heparin gtt Discussed with: patient, nursing Anticipated discharge: 4-[address]
--- NOTE | 2020-07-08 15:42 | P.PN ---
Subjective Progress Note Date: 07/08/20 Principal diagnosis: Elevated LFTs Patient was seen and examined in bed in the ICU. He came into the emergency room 2 days ago was noted to have congestive heart failure and significantly elevated troponin levels. He did have an echocardiogram that showed decreased LV function with an ejection fraction of 20%. On the hospital he was noted to have elevated serum transaminases. Today the patient's total bili 2.5, alkaline phosphatase 83, AST 169, AST 88. Hepatitis studies were negative, liver serology studies were ordered. The patient denies any nausea, vomiting, or ab dominal pain. He does state that he feels short of breath and is having some difficulty with breathing, he denies any chest pain. Objective - Vital Signs Vital signs: Vital Signs Temp 97.5 F L 07/08/20 12:00 Pulse 84 07/08/20 14:00 Resp 34 H 07/08/20 14:00 BP 91/64 07/08/20 14:00 Pulse Ox 93 L 07/08/20 14:00 Intake & Output 07/07/20 07/08/20 07/08/20 18:59 06:59 18:59 Intake Total 352.818 433.917 791.987 Output Total 880 1310 495 Balance -527.182 -876.083 296.987 Weight 98.747 kg Intake: IV 120 120 80 0.9 120 120 80 Intake, IV Titration 232.818 313.917 311.987 Amount DOBUTamine DRIP 500 mg In 5.423 212.237 Dextrose/Water 1 250ml. bag @ 5 MCG/KG/MIN 14.79 mls/hr IV .[id number] [facility] Rx #:[id number] Furosemide 100 mg In 100 63.917 99.75 Sodium Chloride 0.9% 90 ml @ 10 MG/HR 10 mls/hr IV .Q10H [facility] Rx#: [id number] Heparin Sod,Pork in 0.45% 127.395 250 NaCl 25,000 unit In 0.45 % NaCl 1 250ml.bag @ 10. 113 UNITS/KG/HR 10 mls/hr IV .Q24H [facility] Rx#: [id number] Oral 400 Output: Urine 880 1310 495 Other: Voiding Method Indwelling Catheter Indwelling Catheter # Voids 1 - Exam General appearance: The patient is alert, oriented, in no acute distress. HET: Head is normocephalic and atraumatic. Conjunctiva pink. Sclera anicteric. No oral cavity lesions. Neck: Supple without lymphadenopathy. Trachea midline. Heart: S1 S2. Regular rate and rhythm. Lungs: Diminished breath sounds. Abdomen: Soft, nontender, nondistended with bowel sounds. No palpable organomegaly or masses. Extremities: Normal skin color and turgor. No pedal edema Neurological: No focal deficits. Alert and oriented 3. - Labs CBC & Chem 7: 07/08/20 04:27 07/08/20 04:27 Labs: Abnormal Lab Results - Last 24 Hours (Table) 07/07/20 07/07/20 07/07/20 Range/Units 18:06 18:06 18:06 MCV (80.0-100.0) fL MCHC (31.0-37.0) g/dL Plt Count (150-450) k/uL APTT (22.0-30.0) sec Sodium (137-145) mmol/L BUN (9-20) mg/dL Glucose (74-99) mg/dL Iron 14 L (65-175) ug/dL % Saturation 4.05 L (15.00-50.00) Total Bilirubin (0.2-1.3) mg/dL AST (17-59) U/L ALT (4-49) U/L Troponin I 50.200 H* (0.000-0.034) ng/mL Total Protein (6.3-8.2) g/dL Total Protein (PEP) 5.8 L (6.2-8.2) g/dL Albumin (3.5-5.0) g/dL Albumin (PEP) 3.05 L (3.80-4.90) g/dL 07/08/20 07/08/20 07/08/20 Range/Units 04:27 04:27 04:27 MCV 102.5 H (80.0-100.0) fL MCHC 30.5 L (31.0-37.0) g/dL Plt Count 124 L (150-450) k/uL APTT 41.9 H (22.0-30.0) sec Sodium 132 L (137-145) mmol/L BUN 41 H (9-20) mg/dL Glucose 102 H (74-99) mg/dL Iron (65-175) ug/dL % Saturation (15.00-50.00) Total Bilirubin 2.5 H (0.2-1.3) mg/dL AST 169 H (17-59) U/L ALT 88 H (4-49) U/L Troponin I (0.000-0.034) ng/mL Total Protein 5.6 L (6.3-8.2) g/dL Total Protein (PEP) (6.2-8.2) g/dL Albumin 3.1 L (3.5-5.0) g/dL Albumin (PEP) (3.80-4.90) g/dL Microbiology - Last 24 Hours (Table) 07/05/20 18:20 Blood Culture - Preliminary Blood No Growth after 48 hours Assessment and Plan Assessment: 1. Exacerbation of congestive heart failure. Cardiology and pulmonology are following the patient closely. Presently on dobutamine drip as well as IV Lasix drip. 2. Elevated serum transaminases in the patient with no history of chronic liver disease in the past, most likely related to passive venous congestion related to right-sided heart failure. He patient may have chronic liver disease that has not been diagnosed, as evidenced by slightly decreased platelet count, mild coagulopathy and rate and LFTs. 3. History of AICD placement 7 years ago. 4. History of cardiomyopathy with recent echocardiogram showing ejection fraction of 20%. Plan: 1. Hepatitis serologies obtained and are negative 2. Liver serology ordered 3. Maintain hemodynamic stability 3. Avoid hepatotoxic medications 4. Monitor LFTs on a close basis 5. Will follow with you closely. Thank you for this consultation The impression and plan of care has been dictated as directed. Dr. Irish Farmer I performed a history and examination of this patient, discussed the same with the dictator. I agree with the dictator's note ,documented as a scribe. Any additional findings or plans will be noted.
--- NOTE | 2020-07-08 16:04 | XR ---
EXAMINATION TYPE: XR chest 1V portable DATE OF EXAM: 07/08/2020 COMPARISON: Prior chest x-ray 07/08/2020 at earlier time HISTORY: Status post thoracentesis TECHNIQUE: Single frontal view of the chest is obtained. FINDINGS: There is not significant interval change present. No evident pneumothorax. IMPRESSION: No evident complication status post thoracentesis.
--- NOTE | 2020-07-08 16:37 | CDI ---
Documentation Clarification Form Date: 07/08/2020 04:30:50 PM From: Nani FerreiraBRETT ivy, CCDS Admit Date: 07/05/2020 06:55:00 PM Patient Name: Jh Ho Visit Number: [id number] Discharge Date: ATTENTION: The Clinical Documentation Specialists (CDI) and [facility] Coding Staff appreciate your assistance in clarifying documentation. Please respond to the clarification below the line at the bottom and electronically sign. The CDI & [facility] Coding staff will review the response and follow-up if needed. Please note: Queries are made part of the Legal Health Record. If you have any questions, please contact the author of this message via ITS. Dr. Renea Farris: Atrial Fibrillation without further specificity is documented in the 07/07 & 07/08 Pulmonary/Critical Care Progress Notes. Per documentation: "Patient has mostly paced rhythm most of the time, at times he has tachycardia and atrial fibrillation." History/Risk Factors: Smoker, Hyperlipidemia, CAD, Cardiomyopathy, AICD. Clinical Indicators: Presented to the ED on 07/05 with nausea, vomiting & dyspnea, some abdominal pain. Diagnosed with a NSTEMI & Acute on Chronic Systolic CHF. Admitted to ICU with Acute Hypoxic Respiratory Failure. EKG 07/05: R 97 Atrial sensed ventricular paced rhythm, Biventricular pacemaker detected, Abnormal EKG. Treatment: ICU, IV fluid bolus 500 mls @ 999/hr, IV fluid 1,000 mls @ 130/hr, IV Lasix, IV Heparin drip, IV Dobutamine In your professional opinion, can you please clarify the type of Atrial Fibrillation, if known? Chronic/Permanent Paroxysmal Persistent Other, please specify Unable to determine (Last Revision: February 2018) Unable to determine MTDD
--- NOTE | 2020-07-08 17:29 | PCN ---
PROCEDURE NOTE PROCEDURE: Left-sided thoracentesis. PREOPERATIVE DIAGNOSIS: Left pleural effusion. POSTOPERATIVE DIAGNOSIS: Left pleural effusion. ANESTHESIA USED: 2 mL of 1% lidocaine. PROCEDURE DESCRIPTION: The patient was placed in a sitting upright position, and the area at the level of the 8th, 9th intercostal space which was earlier localized by ultrasound was prepared in a sterile fashion and drapes were applied. At the same site, the area was locally anesthetized with 2 mL of 1% lidocaine. Then, a 26-gauge needle was inserted at the same site and advanced into the pleural space. Fluid was obtained. Then a small tiny incision was made at the same site, and a standard thoracentesis catheter was used and advanced into the pleural space, fluid was obtained; however, as soon as the needle was pulled out of the pleural space and the catheter was advanced, no fluid could be drained. Then 2 more attempts were made, and I was able to drain at the most 350 mL of nettie-colored fluid from the left pleural space. The fluid was nonbloody. Fluid was drained and it was sent for different diagnostic studies. The procedure was well tolerated, and there was no evidence of any immediate complications. Chest x-ray was ordered postoperatively. MMODL / IJN: [id number] /
[2020-07-08 18:22] LABS: Color,BF Yellow; Nucleated Cells, Body Fluid 705 /uL; RBC, Body Fluid 1790 /uL
[2020-07-08 18:24] LABS: Mononuclear WBC,Body Fluid 54 %; Polynuclear WBC,Body Fluid 46 %; Total Cells Counted,Body Fluid 100
[2020-07-09 01:11] LABS: Total Protein, Body Fluid 1230 mg/dL
[2020-07-09 01:26] LABS: Glucose, BF Source Pleural Fluid; Glucose, Body Fluid 123 mg/dL; LDH, Body Fluid Source Pleural Fluid
[2020-07-09] MEDS: FUROSEMIDE 100 MG in SODIUM CHLORIDE 0.9% 90 ML IV SCH (04:21)
[2020-07-09 05:25] LABS: INR 1.8 (<1.2); Prothrombin Time 17.5 sec (9.0-12.0)
[2020-07-09 05:36] LABS: Albumin 3.1 g/dL (3.5-5.0); Calcium 8.6 mg/dL (8.4-10.2); Potassium 4.2 mmol/L (3.5-5.1); Total Bilirubin 2.3 mg/dL (0.2-1.3); Total Protein 5.7 g/dL (6.3-8.2)
[2020-07-09] MEDS: PANTOPRAZOLE 40 MG TABLET PO SCH (06:49)
--- NOTE | 2020-07-09 07:29 | XR ---
EXAMINATION TYPE: XR chest 1V portable DATE OF EXAM: 07/09/2020 Comparison: 07/08/2020 Clinical History: 80 year-old male shortness of breath Findings: Left anterior chest wall AICD generator with right atrial, right ventricular, and coronary sinus lead s. Heart remains enlarged. Mild hyperinflation mild interstitial prominence. Continued retrocardiac a nd left basilar opacity. Calcified left hilar lymph nodes suggest prior granulomatous disease. Impression: 1. Ongoing cardiomegaly. Interstitial prominence may be slightly increased. Correlate for possible mi ld pulmonary vascular congestion. 2. Continued moderate left effusion with adjacent atelectasis and/or consolidation.
[2020-07-09] MEDS: ATORVASTATIN 40 MG TAB PO SCH (08:07)
[2020-07-09] MEDS: SPIRONOLACTONE 25 MG TAB PO SCH (08:07)
[2020-07-09] MEDS: HEPARIN SODIUM,PORCINE 5,000 UNIT/ML 1 ML VIAL SQ SCH ×2 (08:07→16:21)
[2020-07-09] MEDS: METOPROLOL TARTRATE 12.5 MG TAB PO SCH ×2 (08:07→20:31)
[2020-07-09] MEDS: ASPIRIN 81 MG PO SCH (08:07)
[2020-07-09 08:39] LABS: Appearance,BF Hazy
[2020-07-09] MEDS ORDERED: FUROSEMIDE 10 MG/ML 4 ML VIAL IV SCH (09:00)
--- NOTE | 2020-07-09 11:01 | PN ---
PROGRESS NOTE Mr. Ho is a gentleman with ischemic cardiomyopathy on IV dobutamine drip and also is on a Lasix drip. He is hemodynamically fairly stable, looks little better than yesterday overall. He also complains of fatigue. No chest pain or shortness of breath. Vital signs are stable, blood pressure is 112/60. JVD 1 cm, no carotid bruit. S1-S2 heard normally, short systolic murmur noted. Lungs reveal improved air entry. Abdomen and lower extremity exam unchanged. IMPRESSION: 1. Ischemic cardiomyopathy with ejection fraction of less than 20% with ICD. 2. Recent myocardial infarction. 3. Resolving congestive heart failure, systolic. RECOMMENDATIONS: I am recommending that we discontinue dobutamine drip, start him on a small dose of lisinopril, switch the IV Lasix drip to IV push Lasix. Increase activity, have him up in a chair and see how he does. If he does well, he may be transferred to telemetry. Prognosis remains guarded. Mortality risk is very high, both short-term and long-term. MMODL / IJN: [id number] /
[2020-07-09 11:31] VITALS: BMI 28.3
[2020-07-09] MEDS: DOBUTamine DRIP 500 MG in DEXTROSE/WATER 1 250ML.BAG IV SCH (11:34)
[2020-07-09] MEDS: SODIUM CHLORIDE 0.9% 1,000 ML IV SCH (11:56)
[2020-07-09 11:57] LABS: Glucose,Whole Blood 133 mg/dL (75-99)
--- NOTE | 2020-07-09 11:58 | P.PN ---
Subjective Progress Note Date: 07/09/20 Principal diagnosis: Acute non-ST elevation myocardial infarction and acute on chronic systolic congestive heart failure This is a 80-year-old white male with history of cardiomyopathy and LV dysfunction. No history of coronary artery disease, previous AICD placement, normally follows up with a senior process control tech in [place]. Patient has been feeling sick for the last 4 days, patient has been experiencing intermittent episodes of nausea, unable to hold anything down, nauseated, vomiting at times, and he had some burning sensation in the chest. His neighbors were concerned, and the paramedics were called in on Monday. However the patient refused to come to the emergency room initially, but later on he changed his mind. Patient presented to the ER, and he was noted to have a paced rhythm, he was also noted to have congestive heart failure, with significantly elevated troponin level, significantly elevated pro BNP level, admitted, placed on diuretics, seen by cardiology on consultation, Though on heparin, echocardiogram showed significant LV dysfunction with ejection fraction of less than 20%. After my evaluation, I recommended a Lasix drip at 5 mg per hour, I also recommended dobutamine at 5 mcg/kg/m. Patient was reevaluated today on 07/07/20, remains in the ICU, patient remains on Lasix drip at 10 mg per hour, and on Dobutrex at 5 mcg/kg/m. Clinically the patient is feeling better, patient has a negative balance of over 950 ML in the last 24 hours. His renal functioning is improving. His IV fluid is at KVO. However while I was seeing the patient, he had a 10 beat run of nonsustained ventricular tachycardia. Patient had no symptoms, this was mostly seen on the monitor. Hence I cut down his dose of Imitrex to 2.5 mcg/kg/m, and asked the nurses to make sure that cardiology is aware. Patient has mostly paced rhythm most of the time, at times he has tachycardia and atrial fibrillation. Chest x- ray is again about the same. Clinically he feels better. And breathing a lot easier. WBC count 9.7 hemoglobin is 15.1. INR is 1.7. BUN is 43 creatinine is 1.12 improved compared to yesterday. Liver profile is also improving compared to yesterday. And his troponin is down to 64 from 116 yesterday. Reevaluated today on 07/08/20, remains in the ICU, remains on Lasix drip at 10 mg per hour and on Dobutrex 2.5 mcg/kg/m. Patient was seen by cardiology, and according to the note by the senior process control tech, no plans to do any cardiac catheterization, no plans to do any interventional studies, basically recommended conservative medical management. Clinically the patient is feeling better, breathing easier, chest x-ray continues to show evidence of congestive heart failure and left pleural effusion. Patient is a -2.5 L in the last 2 days. Ultrasound of the chest showed good size pleural effusion on the left side, may consider thoracentesis on this patient. Patient is now on subcu heparin and set of IV heparin. CBC is relatively normal electrolytes are normal BUN is 41 and creatinine is 1.04. Reevaluated today on 07/09/20, patient is basically about the same, feels generally a bit weaker today. Patient had slight worsening of his renal status today, and he was seen by cardiology, discontinued Lasix drip, placed on IV Lasix, and Dobutrex was discontinued. Patient was also placed on beta blockers and lisinopril, however his blood pressure is marginal, doubt if he will tolerate these medications with marginal low blood pressure. Pleural effusion yesterday showed low protein, but LDH is 514,, not clear whether this is transudative or exudative in nature, the elevated LDH makes it more of an exudative effusion. Cultures are pending. And cytology is pending. Chest x- ray is basically about the same. Patient remains on 4 L nasal cannula and his O2 saturation is 96%. Blood pressure is 87/50 with a mean of 62. INR is 1.8. Electrolytes are normal BUN is 48 creatinine 1.46, agree with cutting down the dose of Lasix. Liver enzymes are noted to be increasing, and this is most likely congestive hepatopathy. Troponin remains elevated. Objective - Vital Signs Vital signs: Vital Signs Temp 97.6 F 07/09/20 08:00 Pulse 79 07/09/20 11:00 Resp 18 07/09/20 11:00 BP 82/50 07/09/20 11:00 Pulse Ox 96 07/09/20 11:00 Intake & Output 07/08/20 07/09/20 07/09/20 18:59 06:59 18:59 Intake Total 1081.987 520 215.183 Output Total 555 320 67 Balance 526.987 200 148.183 Weight 99.9 kg 99.9 kg Intake: IV 120 120 40 0.9 120 120 40 Intake, IV Titration 311.987 100 175.183 Amount DOBUTamine DRIP 500 mg In 212.237 133.85 Dextrose/Water 1 250ml. bag @ 5 MCG/KG/MIN 14.79 mls/hr IV .[id number] [facility] Rx #:[id number] Furosemide 100 mg In 99.75 100 41.333 Sodium Chloride 0.9% 90 ml @ 10 MG/HR 10 mls/hr IV .Q10H [facility] Rx#: [id number] Oral 650 300 Output: Urine 555 320 67 Other: Voiding Method Indwelling Catheter Indwelling Catheter Indwelling Catheter - Exam Physical Exam: Revealed a 80-year-old white male, pleasant, on 4 L nasal cannula, O2 saturations 95%. Head: Atraumatic, normocephalic. HEENT:[Neck is supple.] [No neck masses.] [No thyromegaly.] Positive JVD. Chest: [Diminished breath sounds at the bases no crackles nor rhonchi no wheezes, dullness at the left base. Cardiac Exam: Paced rhythm, normal S1 and S2, 2/6 systolic murmur thought the precordium Abdomen: [Obese, Soft, nontender, no megaly, no rebound, no guarding, normal bowel sounds.] Extremities: [No clubbing, 1+ bipedal edema, no cyanosis.] Neurological Exam: [No focal neurologic deficit.] Alert oriented 3. Psychiatric: Normal mood, affect and normal mental status examination. Musculoskeletal: No deformities noted limitation of range of motion Skin: No rashes - Labs CBC & Chem 7: 07/08/20 04:27 07/09/20 04:25 Labs: Abnormal Lab Results - Last 24 Hours (Table) 07/07/20 07/09/20 07/09/20 Range/Units 18:06 04:25 04:25 PT 17.5 H (9.0-12.0) sec INR 1.8 H (<1.2) Sodium 132 L (137-145) mmol/L BUN 48 H (9-20) mg/dL Creatinine 1.46 H (0.66-1.25) mg/dL Glucose 136 H (74-99) mg/dL Total Bilirubin 2.3 H (0.2-1.3) mg/dL AST 259 H (17-59) U/L ALT 160 H (4-49) U/L Total Protein 5.7 L (6.3-8.2) g/dL Albumin 3.1 L (3.5-5.0) g/dL Albumin (PEP) 3.05 L (3.80-4.90) g/dL Microbiology - Last 24 Hours (Table) 07/08/20 15:20 Gram Stain - Preliminary Pleural Fluid Body Fluid Culture - Preliminary 07/05/20 18:20 Blood Culture - Preliminary Blood No Growth after 72 hours Assessment and Plan Assessment: Impression: Acute hypoxic respiratory failure secondary to acute on chronic systolic congestive heart failure and pulmonary edema. Acute non-ST elevation myocardial infarction Episodes of nonsustained ventricular tachycardia Acute on chronic systolic congestive heart failure Severe cardiomyopathy and LV dysfunction Elevated liver enzymes secondary to hepatic congestion and congestive heart failure History of AICD placement. Left pleural effusion, status post left-sided thoracentesis, 3 50 mL of fluid drained. Recommendation: Continue subcu heparin Continue diuretics, off Lasix infusion. Discontinue Dobutrex. Overall prognosis seems to be extremely poor and guarded. Hence no intervention is recommended from cardiology, recommending mostly conservative measures. Transfer patient to a monitored bed on selective. Time with Patient: Less than 30
[2020-07-09 12:20] LABS: Liver/Kidney Microsome Antibod 1.2 UNITS (<=20)
--- NOTE | 2020-07-09 15:27 | P.PN ---
Subjective Progress Note Date: 07/09/20 Principal diagnosis: Shortness of breath Patient seen and examined at bedside. Shortness of breath has improved. Patient's is at bedside. underwent a left-sided thoracentesis today where 350 mL of nettie-colored fluid was expelled. Patient denies nausea, vomiting, fevers, or chest pain. Patient is a 80-year-old male with a history of congestive heart failure status post AICD, dyslipidemia, and tobacco abuse who presented to the emergency department with shortness of breath, nausea, vomiting, and dizziness. Currently admitted to the ICU on treatment for cardiogenic shock. Objective - Vital Signs Vital signs: Vital Signs Temp 97.8 F 07/09/20 12:00 Pulse 82 07/09/20 15:00 Resp 12 07/09/20 15:00 BP 87/57 07/09/20 15:00 Pulse Ox 95 07/09/20 15:00 Intake & Output 07/08/20 07/09/20 07/09/20 18:59 06:59 18:59 Intake Total 1081.987 520 245.183 Output Total 555 320 97 Balance 526.987 200 148.183 Weight 99.9 kg 99.9 kg Intake: IV 120 120 70 0.9 120 120 70 Intake, IV Titration 311.987 100 175.183 Amount DOBUTamine DRIP 500 mg In 212.237 133.85 Dextrose/Water 1 250ml. bag @ 5 MCG/KG/MIN 14.79 mls/hr IV .[id number] [facility] Rx #:[id number] Furosemide 100 mg In 99.75 100 41.333 Sodium Chloride 0.9% 90 ml @ 10 MG/HR 10 mls/hr IV .Q10H [facility] Rx#: [id number] Oral 650 300 Output: Urine 555 320 97 Other: Voiding Method Indwelling Catheter Indwelling Catheter Indwelling Catheter - Exam General: [non toxic], [no distress], [appears at stated age] Derm: [warm], [dry] Head: [atraumatic], [normocephalic], [symmetric] Eyes: [EOMI], [no lid lag], [anicteric sclera] Mouth: [no lip lesion], [mucus membranes moist] Cardiovascular: [S1S2 reg], [grade 2/6 systolic murmur], [positive posterior tibial pulse bilateral], Lungs: [CTA bilateral], [no rhonchi, no rales] , [no accessory muscle use] Abdominal: [soft], [ nontender to palpation], [no guarding], [no appreciable organomegaly] Ext: [no gross muscle atrophy], [+1edema], [no contractures] Neuro: [ CN II-XI grossly intact], [no focal neuro deficits] Psych: [Alert], [oriented], [appropriate affect] - Labs CBC & Chem 7: 07/08/20 04:27 07/09/20 04:25 Labs: Abnormal Lab Results - Last 24 Hours (Table) 07/07/20 07/09/20 07/09/20 Range/Units 18:06 04:25 04:25 PT 17.5 H (9.0-12.0) sec INR 1.8 H (<1.2) Sodium 132 L (137-145) mmol/L BUN 48 H (9-20) mg/dL Creatinine 1.46 H (0.66-1.25) mg/dL Glucose 136 H (74-99) mg/dL POC Glucose (mg/dL) (75-99) mg/dL Total Bilirubin 2.3 H (0.2-1.3) mg/dL AST 259 H (17-59) U/L ALT 160 H (4-49) U/L Total Protein 5.7 L (6.3-8.2) g/dL Albumin 3.1 L (3.5-5.0) g/dL Anti-Smooth Muscle Ab 22 H (<20) UNITS 07/09/20 Range/Units 11:55 PT (9.0-12.0) sec INR (<1.2) Sodium (137-145) mmol/L BUN (9-20) mg/dL Creatinine (0.66-1.25) mg/dL Glucose (74-99) mg/dL POC Glucose (mg/dL) 133 H (75-99) mg/dL Total Bilirubin (0.2-1.3) mg/dL AST (17-59) U/L ALT (4-49) U/L Total Protein (6.3-8.2) g/dL Albumin (3.5-5.0) g/dL Anti-Smooth Muscle Ab (<20) UNITS Microbiology - Last 24 Hours (Table) 07/08/20 15:20 Gram Stain - Preliminary Pleural Fluid Body Fluid Culture - Preliminary 07/05/20 18:20 Blood Culture - Preliminary Blood No Growth after 72 hours Assessment and Plan Assessment: 1. Acute on chronic systolic congestive heart failure ejection fraction less than 20% with cardiogenic shock, AICD in place -Patient is off the Lasix drip -Aldactone -Beta agustina restarted -Cardiology recommendations appreciated -Critical care recommendations appreciated -No surgical intervention at this time 2. Non-STEMI secondary to #1 -Heparin drip - ASA, lipitor 3. Transaminitis -Suspect secondary to hepatic congestion with underlying liver disease secondary to steatohepatitis -Repeat in a.m. after diuresis - acute hepatitis panel negative 4. Coagulopathy, undetermined etiology -Repeat INR in a.m. - possibly realted to underlying liver disease 5. Leukocytosis resolved -Suspect reactive and secondary to stress -Follow CBC 6. Thrombocytopenia -Undetermined etiology -Follow CBC 7. Between the patient's thrombocytopenia, elevated INR, transaminitis secondary to his return for underlying liver disease. However due to his acute hypotension in [place] CHF we will delay further invasive testing until the patient is more stable and there is hepatomegaly but no signs of cirrhosis on liver ultrasound. GI recommendations appreciated DVT prophylaxis:heparin gtt Discussed with: patient, nursing Anticipated discharge: 1-[address]
--- NOTE | 2020-07-09 15:43 | PN ---
PROGRESS NOTE DATE OF DICTATION: 07/09/2020 Patient is a 80-year-old pleasant white male admitted to hospital with severe shortness of breath and exacerbation of congestive heart failure. He remains in the intensive care unit. Has history of severe cardiomyopathy with LV dysfunction. While in the hospital, is noted to have elevated serum transaminases and hence is being seen on followup today. He denies any new symptoms. He complains of fatigue and weakness. He has decreased appetite. He was not able to eat his lunch today. Complains of some nausea. He underwent thoracentesis yesterday. PHYSICAL EXAMINATION: Blood pressure is 82/50, pulse is 79, temperature 97.5. HEENT: Examination unremarkable, conjunctivae are pink, sclerae nonicteric, oral cavity no lesions. NECK: No JVD or lymph node enlargement. HEART: Regular rate and rhythm. ABDOMEN: Soft, it was nontender, nondistended. Bowel sounds are positive, no organomegaly. EXTREMITIES: No pedal edema. NEURO: He is alert and oriented x3. No focal deficits. LABS: From today AST is 259, ALT is 160, T bilirubin is 2.3, alkaline phosphatase is normal. Albumin is 3.08. BUN 48, creatinine 1.46, platelets 124. IMPRESSION: 1. Exacerbation of congestive heart failure. 2. Severe ischemic cardiomyopathy with decreased LV function. 3. Elevated LFTs and slight elevation of T bilirubin, which are gradually improving; however, they got slightly worse today. Most likely, all of this is a result of congestive hepatomegaly/passive/passive venous congestion. At this time possibility of chronic underlying liver disease cannot be excluded. Possibility of cardiac cirrhosis also needs to be considered. RECOMMENDATIONS: 1. Continue with symptomatic and supportive care. 2. Patient presently maintained on diuretics but dobutamine has been discontinued. 3. Monitor LFTs on a close basis. 4. Avoid hepatotoxic medications. 5. Will follow with you closely. Thank you for this consultation. MMODL / IJN: [id number] /
[2020-07-09] MEDS: FUROSEMIDE 10 MG/ML 4 ML VIAL IV SCH (20:31)
[2020-07-10] MEDS: HEPARIN SODIUM,PORCINE 5,000 UNIT/ML 1 ML VIAL SQ SCH ×3 (03:07→16:17)
[2020-07-10 03:36] LABS: Glucose,Whole Blood 124 mg/dL (75-99)
[2020-07-10] MEDS: PANTOPRAZOLE 40 MG TABLET PO SCH (05:57)
[2020-07-10] MEDS: SODIUM CHLORIDE 0.9% 1,000 ML IV SCH (05:57)
[2020-07-10 06:03] LABS: Calcium 8.7 mg/dL (8.4-10.2); Potassium 4.9 mmol/L (3.5-5.1)
[2020-07-10 06:06] LABS: HCT 53.2 % (39.0-53.0); HGB 16.3 gm/dL (13.0-17.5); Hypochromasia Marked; MCH 32.2 pg (25.0-35.0); MCHC 30.7 g/dL (31.0-37.0); Macrocytosis Moderate; Mean Platelet Volume 9.6; Platelet Count 117 k/uL (150-450); RBC 5.07 m/uL (4.30-5.90); RDW 14.1 % (11.5-15.5)
[2020-07-10 07:25] LABS: Band Neutrophils % 2 %; Lymphocytes # (M) 1.02 k/uL (1.0-4.8); Monocytes # (M) 0.77 k/uL (0-1.0); Neutrophils % (M) 78 %; Nucleated Red Blood Cells 1 /100 WBC (0-0); Total Cells Counted 200; WBC 8.5 k/uL (3.8-10.6)
[2020-07-10 07:26] LABS: Large Platelets Present
[2020-07-10 07:27] LABS: Poikilocytosis (M) Present
[2020-07-10 07:28] LABS: Polychromasia Present
--- NOTE | 2020-07-10 07:34 | XR ---
EXAMINATION TYPE: XR chest 1V portable DATE OF EXAM: 07/10/2020 Comparison: 07/09/2020 Clinical History: 80 year-old male shortness of breath Findings: Left anterior chest wall AICD generator with right atrial, right ventricular, and coronary sinus lead s. Heart is enlarged. Mild hyperinflation comment possible emphysema. Continued dense retrocardiac op acity. Impression: Continued dense retrocardiac opacification, possible moderate effusion with adjacent atelectasis and/ or consolidation.
[2020-07-10] MEDS ORDERED: DOPamine DRIP 800 MG in DEXTROSE/WATER 1 250ML.BAG IV SCH (08:45)
[2020-07-10] MEDS: METOPROLOL TARTRATE 12.5 MG TAB PO SCH (08:51)
[2020-07-10] MEDS: ASPIRIN 81 MG PO SCH (08:51)
[2020-07-10] MEDS: DOBUTamine DRIP 500 MG in DEXTROSE/WATER 1 250ML.BAG IV SCH (08:51)
[2020-07-10] MEDS: ATORVASTATIN 40 MG TAB PO SCH (08:51)
[2020-07-10] MEDS: SPIRONOLACTONE 25 MG TAB PO SCH (08:52)
[2020-07-10] MEDS: FUROSEMIDE 10 MG/ML 4 ML VIAL IV SCH ×2 (08:52→20:06)
[2020-07-10] MEDS: ONDANSETRON 4 MG/2 ML VIAL IVP PRN ×2 (09:37→16:43)
--- NOTE | 2020-07-10 11:04 | P.PN ---
Subjective Progress Note Date: 07/10/20 (delayed cahrting seen at 1015) Principal diagnosis: shortness of breath Patient is a 80-year-old male with a history of congestive heart failure status post AICD, dyslipidemia, and tobacco abuse who presented to the emergency department with shortness of breath, nausea, vomiting, and dizziness. The ER he was found to be tachycardic with pulse of 107. Initial laboratory analysis showed white blood cell count 10.7, platelets 140, d-dimer 1.98, INR 1.6, troponin 107, BNP 15,300, AST 656, ALT 101, total bilirubin 3.1. Initial chest x-ray demonstrated vascular congestion with small effusions. KUB demonstrated no evidence of free air or bowel obstruction. He also underwent a gallbladder ultrasound which demonstrated hepatomegaly with an 18.6 cm hypoechoic appearance to the liver with gallbladder wall thickening that was nonspecific. He was admitted with non-STEMI versus myocarditis. He was admitted to the ICU. He was started on aspirin, twice a day Lasix, heparin, and fluid restriction. He was seen by cardiology who recommended maximal therapy including diuretics, IV heparin, beta blockers, and YUE inhibitor. He was seen by critical care started on a Lasix drip along with dobutamine due to cardiogenic shock. He was able to achieve a negative fluid balance and had stable renal function. He was having some nonsustained V. tach and his dobutami ne was decreased. He continued to have abnormal LFTs along with coagulopathy and low platelets. He was seen by GI who felt that his liver dysfunction was secondary to passive venous congestion as he had had a negative acute hepatitis profile, however he stated he will need further workup once he is more stable. On 07/08 he underwent a left-sided thoracentesis with removal of 350 mL of fluid that was exudative versus transudative. His Dobutrex was discontinued on 07/09 as well as his Lasix drip secondary to worsening renal function. He was started on beta blockers. On the morning of 07/10 he was hypotensive, had decreased urine output, and his creatinine had doubled to greater than 2. He was seen by cardiology and dobutamine and dopamine were initiated. He immediately started having nausea, lightheadedness, and elevated heart rate. His dopamine was discontinued. Patient seen and examined at bedside. He is feeling nauseous, lightheaded, and somewhat short of breath. He does not feel well overall. He denies any chest discomfort at this time. He states that he did speak with Dr. Zafar my partner yesterday that he does not have a good overall long-term prognosis. General: Ill appearing, moderate distress, appears at stated age Derm: warm, dry Head: atraumatic, normocephalic, symmetric Eyes: EOMI, no lid lag, anicteric sclera Mouth: no lip lesion, mucus membranes moist Cardiovascular: S1 and S2 tachycardic, positive posterior tibial pulse bilateral, + JVD Lungs: Increased breath sounds bilateral bases, 2 word conversational dyspnea, no accessory muscle use Abdominal: soft, nontender to palpation, no guarding, no appreciable organomegaly Ext: no gross muscle atrophy, 1+ edema, no contractures Neuro: CN II-XI grossly intact, no focal neuro deficits Psych: Alert, oriented, appropriate affect Non-ST segment elevated myocardial infarction - ASA, lipitor -Completed heparin drip Acute on chronic systolic congestive heart failure ejection fraction less than 20% with cardiogenic shock, AICD in place, Acute hypoxic respiratory failure -On Lasix and Aldactone with worsening creatinine. Nephrology consulted but likely secondary to cardiorenal syndrome. -Continue with dobutamine, dopamine -Patient did have an ejection fraction 20-25% in November 2019 and outpatient echo with his cardiology team. -Cardiology recommendations appreciated -Critical care recommendations appreciated -Strict I's and O's, daily weights TOMASA, oliguric - due to diuresis vs cardiorenal syndrome - Avoid nephrotoxic agents -Strict I's and O's -Follow renal profile -Consult nephrology left Pleural effusion - s/p paracentesis Transaminitis -Suspect secondary to hepatic congestion with underlying liver disease secondary to steatohepatitis -Follow LFTs - Acute hepatitis panel negative, negative alpha-1 antitrypsin, negative ceruloplasmin, negative AFP, smooth muscle antibody marginally positive, PATI and antimicrobial antibody negative. Coagulopathy, undetermined etiology -Repeat INR in a.m. - possibly related to underlying liver disease Thrombocytopenia, suspect related to liver dysfunction -Undetermined etiology -Follow CBC Leukocytosis, resolved Discussed with and patient. They both agree that he would not like resuscitation was not bring him any benefit. CODE STATUS therefore updated to No code. DVT prophylaxis:heparin Discussed with: patient, nursing, Dr. De La Cruz Anticipated discharge: 4-[address] A total of 65 minutes was spent on the care of this complex patient more than 50% of the time was spent in counseling and care coordination. Objective - Vital Signs Vital signs: Vital Signs Temp 96.6 F L 07/10/20 08:00 Pulse 89 07/10/20 09:00 Resp 16 07/10/20 09:00 BP 111/82 07/10/20 09:00 Pulse Ox 97 07/10/20 08:00 Intake & Output 07/09/20 07/10/20 07/10/20 18:59 06:59 18:59 Intake Total 074.901 2624 205.156 Output Total 147 145 45 Balance 348.183 895 160.156 Weight 99.9 kg 100 kg Intake: IV 70 600 200 0.9 70 Sodium Chloride 0.9% 1, 600 200 000 ml @ 50 mls/hr IV . Q20H [facility] Rx#:[id number] Intake, IV Titration 425.183 5.156 Amount DOBUTamine DRIP 500 mg In 133.85 Dextrose/Water 1 250ml. bag @ 5 MCG/KG/MIN 14.79 mls/hr IV .[id number] [facility] Rx #:[id number] DOPamine DRIP 800 mg In 5.156 Dextrose/Water 1 250ml. bag @ 3 MCG/KG/MIN 5.625 mls/hr IV .Q24H [facility] Rx#: [id number] Furosemide 100 mg In 41.333 Sodium Chloride 0.9% 90 ml @ 10 MG/HR 10 mls/hr IV .Q10H [facility] Rx#: [id number] Sodium Chloride 0.9% 1, 250 000 ml @ 50 mls/hr IV . Q20H [facility] Rx#:[id number] Oral 440 Output: Urine 147 145 45 Other: Voiding Method Indwelling Catheter Indwelling Catheter Indwelling Catheter - Labs CBC & Chem 7: 07/10/20 05:02 07/10/20 05:02 Labs: Abnormal Lab Results - Last 24 Hours (Table) 07/07/20 07/09/20 07/10/20 Range/Units 18:06 11:55 03:34 Hct (39.0-53.0) % MCV (80.0-100.0) fL MCHC (31.0-37.0) g/dL Plt Count (150-450) k/uL Nucleated RBCs (0-0) /100 WBC Sodium (137-145) mmol/L BUN (9-20) mg/dL Creatinine (0.66-1.25) mg/dL Glucose (74-99) mg/dL POC Glucose (mg/dL) 133 H 124 H (75-99) mg/dL Anti-Smooth Muscle Ab 22 H (<20) UNITS 07/10/20 07/10/20 Range/Units 05:02 05:02 Hct 53.2 H (39.0-53.0) % MCV 105.0 H (80.0-100.0) fL MCHC 30.7 L (31.0-37.0) g/dL Plt Count 117 L (150-450) k/uL Nucleated RBCs 1 H (0-0) /100 WBC Sodium 134 L (137-145) mmol/L BUN 58 H (9-20) mg/dL Creatinine 2.37 H (0.66-1.25) mg/dL Glucose 124 H (74-99) mg/dL POC Glucose (mg/dL) (75-99) mg/dL Anti-Smooth Muscle Ab (<20) UNITS Microbiology - Last 24 Hours (Table) 07/08/20 15:20 Gram Stain - Preliminary Pleural Fluid Body Fluid Culture - Preliminary 07/05/20 18:20 Blood Culture - Preliminary Blood No Growth after 96 hours
--- NOTE | 2020-07-10 12:17 | XR ---
EXAMINATION TYPE: XR chest 1V DATE OF EXAM: 07/10/2020 COMPARISON: chest x-ray 07/10/2020 HISTORY: NG tube placement TECHNIQUE: frontal view of the chest is obtained on 2 images. FINDINGS: There is been interval placement of an NG tube, distal tip of the tube is coursing into th e abdomen into the left upper quadrant overlying appropriate position. No other significant interval change. IMPRESSION: No evident complication status post NG tube placement
--- NOTE | 2020-07-10 12:33 | P.PN ---
Subjective Progress Note Date: 07/10/20 Principal diagnosis: Acute non-ST elevation myocardial infarction and acute on chronic systolic congestive heart failure This is a 80-year-old white male with history of cardiomyopathy and LV dysfunction. No history of coronary artery disease, previous AICD placement, normally follows up with a sports medicine physician in [place]. Patient has been feeling sick for the last 4 days, patient has been experiencing intermittent episodes of nausea, unable to hold anything down, nauseated, vomiting at times, and he had some burning sensation in the chest. His neighbors were concerned, and the paramedics were called in on Monday. However the patient refused to come to the emergency room initially, but later on he changed his mind. Patient presented to the ER, and he was noted to have a paced rhythm, he was also noted to have congestive heart failure, with significantly elevated troponin level, significantly elevated pro BNP level, admitted, placed on diuretics, seen by cardiology on consultation, Though on heparin, echocardiogram showed significant LV dysfunction with ejection fraction of less than 20%. After my evaluation, I recommended a Lasix drip at 5 mg per hour, I also recommended dobutamine at 5 mcg/kg/m. Patient was reevaluated today on 07/07/20, remains in the ICU, patient remains on Lasix drip at 10 mg per hour, and on Dobutrex at 5 mcg/kg/m. Clinically the patient is feeling better, patient has a negative balance of over 950 ML in the last 24 hours. His renal functioning is improving. His IV fluid is at KVO. However while I was seeing the patient, he had a 10 beat run of nonsustained ventricular tachycardia. Patient had no symptoms, this was mostly seen on the monitor. Hence I cut down his dose of Imitrex to 2.5 mcg/kg/m, and asked the nurses to make sure that cardiology is aware. Patient has mostly paced rhythm most of the time, at times he has tachycardia and atrial fibrillation. Chest x- ray is again about the same. Clinically he feels better. And breathing a lot easier. WBC count 9.7 hemoglobin is 15.1. INR is 1.7. BUN is 43 creatinine is 1.12 improved compared to yesterday. Liver profile is also improving compared to yesterday. And his troponin is down to 64 from 116 yesterday. Reevaluated today on 07/08/20, remains in the ICU, remains on Lasix drip at 10 mg per hour and on Dobutrex 2.5 mcg/kg/m. Patient was seen by cardiology, and according to the note by the sports medicine physician, no plans to do any cardiac catheterization, no plans to do any interventional studies, basically recommended conservative medical management. Clinically the patient is feeling better, breathing easier, chest x-ray continues to show evidence of congestive heart failure and left pleural effusion. Patient is a -2.5 L in the last 2 days. Ultrasound of the chest showed good size pleural effusion on the left side, may consider thoracentesis on this patient. Patient is now on subcu heparin and set of IV heparin. CBC is relatively normal electrolytes are normal BUN is 41 and creatinine is 1.04. Reevaluated today on 07/09/20, patient is basically about the same, feels generally a bit weaker today. Patient had slight worsening of his renal status today, and he was seen by cardiology, discontinued Lasix drip, placed on IV Lasix, and Dobutrex was discontinued. Patient was also placed on beta blockers and lisinopril, however his blood pressure is marginal, doubt if he will tolerate these medications with marginal low blood pressure. Pleural effusion yesterday showed low protein, but LDH is 514,, not clear whether this is transudative or exudative in nature, the elevated LDH makes it more of an exudative effusion. Cultures are pending. And cytology is pending. Chest x- ray is basically about the same. Patient remains on 4 L nasal cannula and his O2 saturation is 96%. Blood pressure is 87/50 with a mean of 62. INR is 1.8. Electrolytes are normal BUN is 48 creatinine 1.46, agree with cutting down the dose of Lasix. Liver enzymes are noted to be increasing, and this is most likely congestive hepatopathy. Troponin remains elevated. Patient was reevaluated today on 07/10/20, patient was noted to have low blood pressure, low urine output, and his creatinine has doubled. Seen already by cardiology, placed back on dobutamine, and dopamine was also added, however the patient is not tolerating the dopamine. And he is developing significant tachycardia and significant number of PVCs. Patient is also developing nausea and dry heaves. Nasogastric tube was placed but no output hence it was discontinued. I have recommended stopping dopamine, Come on Dobutrex, and I also discussed the CODE STATUS with the patient. Explained to him that he does have severe cardiomyopathy, worsening pulmonary status and worsening renal status, and overall picture does not look promising. Patient agrees to DO NOT RESUSCITATE CODE STATUS, does not wish to have any life support. He is very well aware of his clinical condition. His was also made aware of his overall poor picture, his condition was discussed with her by the hospitalist, and she is also agreeable to DO NOT RESUSCITATE CODE STATUS. Labs today showed normal CBC. Low platelets of 117,000. Normal electrolytes. Abnormal be on a 58 abnormal creatinine of 2.37. Objective - Vital Signs Vital signs: Vital Signs Temp 96.6 F L 07/10/20 08:00 Pulse 89 07/10/20 09:00 Resp 16 07/10/20 09:00 BP 111/82 07/10/20 09:00 Pulse Ox 97 07/10/20 08:00 Intake & Output 07/09/20 07/10/20 07/10/20 18:59 06:59 18:59 Intake Total 173.215 3913 305.156 Output Total 147 145 85 Balance 348.183 895 220.156 Weight 99.9 kg 100 kg Intake: IV 70 600 300 0.9 70 Sodium Chloride 0.9% 1, 600 300 000 ml @ 50 mls/hr IV . Q20H [facility] Rx#:[id number] Intake, IV Titration 425.183 5.156 Amount DOBUTamine DRIP 500 mg In 133.85 Dextrose/Water 1 250ml. bag @ 5 MCG/KG/MIN 14.79 mls/hr IV .[id number] [facility] Rx #:[id number] DOPamine DRIP 800 mg In 5.156 Dextrose/Water 1 250ml. bag @ 3 MCG/KG/MIN 5.625 mls/hr IV .Q24H [facility] Rx#: [id number] Furosemide 100 mg In 41.333 Sodium Chloride 0.9% 90 ml @ 10 MG/HR 10 mls/hr IV .Q10H [facility] Rx#: [id number] Sodium Chloride 0.9% 1, 250 000 ml @ 50 mls/hr IV . Q20H [facility] Rx#:[id number] Oral 440 Output: Urine 147 145 85 Other: Voiding Method Indwelling Catheter Indwelling Catheter Indwelling Catheter - Exam Physical Exam: Revealed a 80-year-old white male, pleasant, on 4 L nasal cannula, O2 saturations 90 percent. Intermittent episodes of nausea and dry heaves noted. Head: Atraumatic, normocephalic. HEENT:[Neck is supple.] [No neck masses.] [No thyromegaly.] Positive JVD. Chest: [Diminished breath sounds at the bases no crackles nor rhonchi no wheezes, dullness at the left base. Cardiac Exam: Tachycardic, intermittent Paced rhythm, normal S1 and S2, 2/6 systolic murmur thought the precordium Abdomen: [Obese, Soft, nontender, no megaly, no rebound, no guarding, normal bowel sounds.] Extremities: [No clubbing, 1+ bipedal edema, no cyanosis.] Neurological Exam: [No focal neurologic deficit.] Alert oriented 3. Psychiatric: Normal mood, affect and normal mental status examination. Musculoskeletal: No deformities noted limitation of range of motion Skin: No rashes - Labs CBC & Chem 7: 07/10/20 05:02 07/10/20 05:02 Labs: Abnormal Lab Results - Last 24 Hours (Table) 07/10/20 07/10/20 07/10/20 Range/Units 03:34 05:02 05:02 Hct 53.2 H (39.0-53.0) % MCV 105.0 H (80.0-100.0) fL MCHC 30.7 L (31.0-37.0) g/dL Plt Count 117 L (150-450) k/uL Nucleated RBCs 1 H (0-0) /100 WBC Sodium 134 L (137-145) mmol/L BUN 58 H (9-20) mg/dL Creatinine 2.37 H (0.66-1.25) mg/dL Glucose 124 H (74-99) mg/dL POC Glucose (mg/dL) 124 H (75-99) mg/dL Ammonia (<30) umol/L 07/10/20 Range/Units 10:36 Hct (39.0-53.0) % MCV (80.0-100.0) fL MCHC (31.0-37.0) g/dL Plt Count (150-450) k/uL Nucleated RBCs (0-0) /100 WBC Sodium (137-145) mmol/L BUN (9-20) mg/dL Creatinine (0.66-1.25) mg/dL Glucose (74-99) mg/dL POC Glucose (mg/dL) (75-99) mg/dL Ammonia 40 H (<30) umol/L Microbiology - Last 24 Hours (Table) 07/08/20 15:20 Gram Stain - Preliminary Pleural Fluid Body Fluid Culture - Preliminary 07/05/20 18:20 Blood Culture - Preliminary Blood No Growth after 96 hours Assessment and Plan Assessment: Impression: Acute hypoxic respiratory failure secondary to acute on chronic systolic congestive heart failure and pulmonary edema. Acute non-ST elevation myocardial infarction Episodes of nonsustained ventricular tachycardia Acute on chronic systolic congestive heart failure Severe cardiomyopathy and LV dysfunction Elevated liver enzymes secondary to hepatic congestion and congestive heart failure History of AICD placement. Left pleural effusion, status post left-sided thoracentesis, 350 mL of fluid drained. Acute on chronic kidney injury, this is most likely cardiorenal in nature. With poor renal perfusion Recommendation: Placed back on Dobutrex, discontinue dopamine. Continue diuretics Discussed with the patient CODE STATUS, and he wishes DO NOT RESUSCITATE CODE STATUS. Overall prognosis seems to be extremely poor and guarded. Continue to monitor the patient in the ICU now that he is on dobutamine drip. Discussed his condition with the admitting physician We'll continue to follow Time with Patient: Less than 30
--- NOTE | 2020-07-10 12:35 | US ---
EXAMINATION TYPE: US abdomen limited DATE OF EXAM: 07/10/2020 COMPARISON: NONE CLINICAL HISTORY: 80-year-old male ascites. TECHNIQUE: Multiple sonographic images of the 4 abdominal quadrants are obtained for assessment of as cites fluid. FINDINGS: Trace right sided perihepatic ascites. In addition, there is a mild ascites collection along the left upper quadrant. IMPRESSION: Trace perihepatic ascites and mild left upper quadrant ascites.
--- NOTE | 2020-07-10 13:07 | CONS ---
CONSULTATION REASON FOR CONSULT: Renal failure. HISTORY OF PRESENT ILLNESS: Patient is a 80-year-old male who was initially admitted to the hospital on 07/05/2020 with complaints of nausea, vomiting, increased weakness and heartburn. Patient was found to have acute [place]. He was also noted to be in CHF and was found to have an ejection fraction of about 20%. Over the last few days patient was admitted to the ICU for fluid overload. The patient was maintained on Lasix drip and was also started on dobutamine. It looks like he had some improvement in his urine output and then the dobutamine and Lasix drip was discontinued and subsequently patient did not have much urine output at all. This morning he was started on dopamine and he went into ventricular tachycardia. The dopamine was discontinued and patient is back on dobutamine. It is currently at 2.5 mcg/kg. Urine output seems to have picked up to about 20-40 mL an hour from 5-0. Patient did receive Lasix 40 mg IV. He is currently maintained on q. 12 hour dosing. No history of fever, chills. The patient continues to be nauseated. He has just had an NG tube placed. PAST MEDICAL HISTORY: Significant for hypertension, coronary artery disease, hyperlipidemia. PAST SURGICAL HISTORY: Appendectomy, pacemaker placement, tonsillectomy. SOCIAL HISTORY: Positive for smoking, no history of drug abuse or alcohol abuse. MEDICATIONS: At home included Lipitor, Lasix, Imdur, Toprol, Flomax. ALLERGIES: None. REVIEW OF SYSTEMS: As per HPI. Other systems negative. PHYSICAL EXAMINATION: Patient is comfortable, awake, not in any acute distress. Blood pressure is 116/73, heart rate 83 per minute, he is afebrile. Examination of the heart S1, S2. Examination of the lungs, decreased breath sounds at bases. Crackles are heard at the bases. Abdomen is soft, nontender. Examination of the lower extremity shows no significant edema. [employer] exam grossly intact. Patient is moving all 4 extremities. LABS: Show hemoglobin 16.3 g/dL, white cell count 8.5, sodium 134, potassium 4.9, BUN 58, creatinine 2.37, albumin 3.1. UA on July 05, 2020 shows protein trace, moderate blood, RBCs 59, WBCs 4. ASSESSMENT: 1. Acute kidney injury, cardiorenal and secondary to hypotension, oliguric initially, currently nonoliguric and improved with the dobutamine. I will continue with the current dose of Lasix 40 mg q.12 hours and continue with the dobutamine drip. If he remains hemodynamically stable, we can also increase the dobutamine drip to 5 mcg/kg. No nephrotoxic agents on board. I will repeat another urinalysis. Continue with the Pedroza catheter for now. 2. CHF, Acute on top of chronic systolic. 3. Cardiomyopathy, ejection fraction 20%. 4. Acute WV prior to admission. 5. Elevated liver enzymes secondary to shocked liver from severe CHF. PLAN: Continue current dose of IV Lasix. Repeat urinalysis. Consider increasing dobutamine. If patient remains hemodynamically stable, continue off of dopamine. I will also hold off on the Aldactone since potassium is 4.9. Once urine output picks up, we can resume the Aldactone. MMODL / IJN: [id number] /
--- NOTE | 2020-07-10 14:07 | PN ---
PROGRESS NOTE A gentleman with ischemic cardiomyopathy, severe LV dysfunction, has a poor urine output, feels weak and tired. His renal output is low. We are probably dealing with a poor cardiac output situation. I will place him back on a low dose of dobutamine and also renal dopamine and continue his other medications and keep him in the ICU one more day. I discussed my thoughts with the patient. Prognosis is poor. Blood pressure is 112/70, pulse rate is 80 per minute, JVD 1 cm, no carotid bruit. S1- S2 heard normally, short systolic murmur noted at the base. Lungs reveal bilateral fine rales. Abdomen and lower extremity exam is unchanged. MMODL / IJN: [id number] /
[2020-07-10 19:17] LABS: Glucose,Whole Blood 108 mg/dL (75-99)
[2020-07-11] MEDS: HEPARIN SODIUM,PORCINE 5,000 UNIT/ML 1 ML VIAL SQ SCH ×3 (01:21→17:55)
[2020-07-11 04:56] LABS: HCT 52.7 % (39.0-53.0); Hypochromasia Marked; MCH 31.6 pg (25.0-35.0); MCHC 30.4 g/dL (31.0-37.0); Macrocytosis Slight; Platelet Count 127 k/uL (150-450); RBC 5.07 m/uL (4.30-5.90); RDW 14.2 % (11.5-15.5)
[2020-07-11 05:03] LABS: Prothrombin Time 19.7 sec (9.0-12.0)
[2020-07-11 05:28] LABS: Albumin 3.2 g/dL (3.5-5.0); Calcium 8.7 mg/dL (8.4-10.2); Magnesium 2.2 mg/dL (1.6-2.3); Potassium 4.6 mmol/L (3.5-5.1)
--- NOTE | 2020-07-11 08:06 | XR ---
EXAMINATION TYPE: XR chest 1V portable DATE OF EXAM: 07/11/2020 Comparison: 07/10/2020 Clinical History: 80-year-old male CHF Findings: Left anterior chest wall ICD generator with right atrial, right ventricular, and coronary sinus leads . Heart remains enlarged. Continued retrocardiac passing. Mild patchy right basilar opacity persists. Mild diffuse interstitial prominence and mild hyperinflation. Interval removal of NG tube. Impression: Correlate for COPD with superimposed mild pulmonary vascular congestion, unchanged. Continued dense r etrocardiac opacity. Underlying moderate left effusion difficult to exclude.
[2020-07-11] MEDS: LACTULOSE 20 GM/30 ML CUP PO SCH ×2 (09:12→21:54)
[2020-07-11] MEDS: ONDANSETRON 4 MG/2 ML VIAL IVP PRN (09:12)
[2020-07-11] MEDS: PANTOPRAZOLE 40 MG TABLET PO SCH (09:12)
[2020-07-11] MEDS: ASPIRIN 81 MG PO SCH (09:12)
[2020-07-11] MEDS: SPIRONOLACTONE 25 MG TAB PO SCH (09:12)
[2020-07-11] MEDS: ATORVASTATIN 40 MG TAB PO SCH (09:12)
[2020-07-11] MEDS: FUROSEMIDE 10 MG/ML 4 ML VIAL IV SCH ×2 (09:13→21:54)
--- NOTE | 2020-07-11 11:07 | P.PN ---
Subjective Progress Note Date: 07/11/20 (delayed charting seen at 0815) Principal diagnosis: shortness of breath Patient is a 80-year-old male with a history of congestive heart failure status post AICD, dyslipidemia, and tobacco abuse who presented to the emergency department with shortness of breath, nausea, vomiting, and dizziness. The ER he was found to be tachycardic with pulse of 107. Initial laboratory analysis showed white blood cell count 10.7, platelets 140, d-dimer 1.98, INR 1.6, troponin 107, BNP 15,300, AST 656, ALT 101, total bilirubin 3.1. Initial chest x-ray demonstrated vascular congestion with small effusions. KUB demonstrated no evidence of free air or bowel obstruction. He also underwent a gallbladder ultrasound which demonstrated hepatomegaly with an 18.6 cm hypoechoic appearance to the liver with gallbladder wall thickening that was nonspecific. He was admitted with non-STEMI versus myocarditis. He was admitted to the ICU. He was started on aspirin, twice a day Lasix, heparin, and fluid restriction. He was seen by cardiology who recommended maximal therapy including diuretics, IV heparin, beta blockers, and YUE inhibitor. He was seen by critical care started on a Lasix drip along with dobutamine due to cardiogenic shock. He was able to achieve a negative fluid balance and had stable renal function. He was having some nonsustained V. tach and his dobutami ne was decreased. He continued to have abnormal LFTs along with coagulopathy and low platelets. He was seen by GI who felt that his liver dysfunction was secondary to passive venous congestion as he had had a negative acute hepatitis profile, however he stated he will need further workup once he is more stable. On 07/08 he underwent a left-sided thoracentesis with removal of 350 mL of fluid that was exudative versus transudative. His Dobutrex was discontinued on 07/09 as well as his Lasix drip secondary to worsening renal function. He was started on beta blockers. On the morning of 07/10 he was hypotensive, had decreased urine output, and his creatinine had doubled to greater than 2. He was seen by cardiology and dobutamine and dopamine were initiated. He immediately started having nausea, lightheadedness, and elevated heart rate. His dopamine was discontinued and his HR improved. Renal function stable of 07/10 with slightly improved urine output. Patient seen and examined at bedside. Reports being tired and having some abdominal pain and nausea. He states that the abdominal pain is an outward pressure. General: Ill appearing, mild distress, appears at stated age Derm: warm, dry Head: atraumatic, normocephalic, symmetric Eyes: EOMI, no lid lag, anicteric sclera Mouth: no lip lesion, mucus membranes moist Cardiovascular: S1 and S2 tachycardic, positive posterior tibial pulse bilateral, + JVD Lungs: Increased breath sounds bilateral bases, 2 word conversational dyspnea, no accessory muscle use Abdominal: + distended, soft, nontender to palpation, no guarding, no apprecia ble organomegaly Ext: no gross muscle atrophy, 1+ edema, no contractures Neuro: CN II-XI grossly intact, no focal neuro deficits Psych: lethargic, oriented to hospital, appropriate affect Non-ST segment elevated myocardial infarction - ASA, lipitor -Completed heparin drip Acute on chronic systolic congestive heart failure ejection fraction less than 20% with cardiogenic shock, AICD in place, Acute hypoxic respiratory failure -On Lasix and Aldactone -Continue with dobutamine -Patient did have an ejection fraction 20-25% in November 2019 and outpatient echo with his cardiology team. -Cardiology recommendations appreciated -Critical care recommendations appreciated -Strict I's and O's, daily weights - Poor overall prognosis, discussed with family on 07/10 TOMASA, oliguric - due to diuresis vs cardiorenal syndrome - Avoid nephrotoxic agents - Strict I's and O's - Follow renal profile - Nephrology recs appreciated Metabolic encephalopathy - start lactulose with increase ammonia yesterday - supportive care Transaminitis, with coagulopathy and thrombocytopenia, worsening LFTs -Suspect secondary to hepatic congestion with underlying liver disease secondary to steatohepatitis -Follow LFTs - Acute hepatitis panel negative, negative alpha-1 antitrypsin, negative ceruloplasmin, negative AFP, smooth muscle antibody marginally positive, PATI and antimicrobial antibody negative. - Gall bladder US with pericholcystic fluid - follow INR and Liver enzymes -Follow CBC left Pleural effusion - s/p paracentesis, recurrent - pathology pending Leukocytosis, resolved Discussed with and patient. They both agree that he would not like resuscitation was not bring him any benefit. CODE STATUS therefore updated to No code. DVT prophylaxis:heparin Discussed with: patient, nursing, Dr. De La Cruz Anticipated discharge: 4-[address]: [facility] A total of 65 minutes was spent on the care of this complex patient more than 50% of the time was spent in counseling and care coordination. Objective - Vital Signs Vital signs: Vital Signs Temp 97.9 F 07/11/20 04:00 Pulse 85 07/11/20 04:00 Resp 18 07/11/20 04:00 BP 113/80 07/11/20 04:00 Pulse Ox 97 07/11/20 04:00 Intake & Output 07/10/20 07/11/20 07/11/20 18:59 06:59 18:59 Intake Total 515.156 90.0 Output Total 210 447 Balance 305.156 -357.0 Weight 105.6 kg Intake: IV 450 90.0 DOBUTamine DRIP 500 mg In 90.0 Dextrose/Water 1 250ml. bag @ 2.5 MCG/KG/MIN 7.5 mls/hr IV .Q24H [facility] Rx#: [id number] Sodium Chloride 0.9% 1, 450 000 ml @ 50 mls/hr IV . Q20H [facility] Rx#:[id number] Intake, IV Titration 5.156 Amount DOPamine DRIP 800 mg In 5.156 Dextrose/Water 1 250ml. bag @ 3 MCG/KG/MIN 5.625 mls/hr IV .Q24H [facility] Rx#: [id number] Oral 60 Output: Urine 210 447 Other: Voiding Method Indwelling Catheter Indwelling Catheter - Labs CBC & Chem 7: 07/11/20 04:34 07/11/20 04:34 Labs: Abnormal Lab Results - Last 24 Hours (Table) 07/10/20 07/11/20 07/11/20 Range/Units 19:14 04:34 04:34 MCV 104.0 H (80.0-100.0) fL MCHC 30.4 L (31.0-37.0) g/dL Plt Count 127 L (150-450) k/uL PT 19.7 H (9.0-12.0) sec INR 2.0 H (<1.2) Sodium (137-145) mmol/L BUN (9-20) mg/dL Creatinine (0.66-1.25) mg/dL Glucose (74-99) mg/dL POC Glucose (mg/dL) 108 H (75-99) mg/dL Phosphorus (2.5-4.5) mg/dL Total Bilirubin (0.2-1.3) mg/dL AST (17-59) U/L ALT (4-49) U/L Total Protein (6.3-8.2) g/dL Albumin (3.5-5.0) g/dL 07/11/20 Range/Units 04:34 MCV (80.0-100.0) fL MCHC (31.0-37.0) g/dL Plt Count (150-450) k/uL PT (9.0-12.0) sec INR (<1.2) Sodium 134 L (137-145) mmol/L BUN 65 H (9-20) mg/dL Creatinine 2.24 H (0.66-1.25) mg/dL Glucose 101 H (74-99) mg/dL POC Glucose (mg/dL) (75-99) mg/dL Phosphorus 5.0 H (2.5-4.5) mg/dL Total Bilirubin 2.0 H (0.2-1.3) mg/dL AST 538 H (17-59) U/L ALT 477 H (4-49) U/L Total Protein 6.0 L (6.3-8.2) g/dL Albumin 3.2 L (3.5-5.0) g/dL Microbiology - Last 24 Hours (Table) 07/05/20 18:20 Blood Culture - Preliminary Blood No Growth after 120 hours 07/08/20 15:20 Gram Stain - Preliminary Pleural Fluid Body Fluid Culture - Preliminary
--- NOTE | 2020-07-11 11:22 | PN ---
PROGRESS NOTE Jh is a 80-year-old gentleman with history of coronary artery disease, ischemic cardiomyopathy status post AICD who is admitted to the hospital with symptoms of shortness of breath and not feeling well and confusion. He ruled in for myocardial infarction. An echocardiogram showed severe LV systolic dysfunction with an ejection fraction of 30%. The patient has poor urine output and is currently in the ICU and has been on intravenous dobutamine and dopamine with a poor prognosis. He could not tolerate going off the dobutamine. PHYSICAL EXAM: Heart rate is 94 beats per minute, blood pressure is 113/80, respiratory is 18, O2 saturation is 97% on 4 L. There is no jugular venous distention. Chest exam reveals diminished air entry bilaterally. Heart exam reveals first and second heart sounds. Systolic murmur at the left lower sternal border. Abdomen is soft. Exam of the extremities reveals mild edema. Peripheral pulses are felt. LABORATORY DATA: Show a hemoglobin of 16, platelet count is 127. INR is 2. Potassium is 4.6, BUN is 65, creatinine is 2.2. AST and ALT are elevated. MEDICATIONS: The patient is currently on aspirin, Lipitor, dobutamine, IV Lasix and Aldactone. ASSESSMENT: 1. Ischemic cardiomyopathy. 2. Cardiogenic shock. MMODL / IJN: [id number] /
--- NOTE | 2020-07-11 11:30 | P.PN ---
Subjective Progress Note Date: 07/11/20 Principal diagnosis: Acute non-ST elevation myocardial infarction and acute on chronic systolic congestive heart failure This is a 80-year-old white male with history of cardiomyopathy and LV dysfunction. No history of coronary artery disease, previous AICD placement, normally follows up with a fuel oil clerk in [place]. Patient has been feeling sick for the last 4 days, patient has been experiencing intermittent episodes of nausea, unable to hold anything down, nauseated, vomiting at times, and he had some burning sensation in the chest. His neighbors were concerned, and the paramedics were called in on Monday. However the patient refused to come to the emergency room initially, but later on he changed his mind. Patient presented to the ER, and he was noted to have a paced rhythm, he was also noted to have congestive heart failure, with significantly elevated troponin level, significantly elevated pro BNP level, admitted, placed on diuretics, seen by cardiology on consultation, Though on heparin, echocardiogram showed significant LV dysfunction with ejection fraction of less than 20%. After my evaluation, I recommended a Lasix drip at 5 mg per hour, I also recommended dobutamine at 5 mcg/kg/m. Patient was reevaluated today on 07/07/20, remains in the ICU, patient remains on Lasix drip at 10 mg per hour, and on Dobutrex at 5 mcg/kg/m. Clinically the patient is feeling better, patient has a negative balance of over 950 ML in the last 24 hours. His renal functioning is improving. His IV fluid is at KVO. However while I was seeing the patient, he had a 10 beat run of nonsustained ventricular tachycardia. Patient had no symptoms, this was mostly seen on the monitor. Hence I cut down his dose of Imitrex to 2.5 mcg/kg/m, and asked the nurses to make sure that cardiology is aware. Patient has mostly paced rhythm most of the time, at times he has tachycardia and atrial fibrillation. Chest x- ray is again about the same. Clinically he feels better. And breathing a lot easier. WBC count 9.7 hemoglobin is 15.1. INR is 1.7. BUN is 43 creatinine is 1.12 improved compared to yesterday. Liver profile is also improving compared to yesterday. And his troponin is down to 64 from 116 yesterday. Reevaluated today on 07/08/20, remains in the ICU, remains on Lasix drip at 10 mg per hour and on Dobutrex 2.5 mcg/kg/m. Patient was seen by cardiology, and according to the note by the fuel oil clerk, no plans to do any cardiac catheterization, no plans to do any interventional studies, basically recommended conservative medical management. Clinically the patient is feeling better, breathing easier, chest x-ray continues to show evidence of congestive heart failure and left pleural effusion. Patient is a -2.5 L in the last 2 days. Ultrasound of the chest showed good size pleural effusion on the left side, may consider thoracentesis on this patient. Patient is now on subcu heparin and set of IV heparin. CBC is relatively normal electrolytes are normal BUN is 41 and creatinine is 1.04. Reevaluated today on 07/09/20, patient is basically about the same, feels generally a bit weaker today. Patient had slight worsening of his renal status today, and he was seen by cardiology, discontinued Lasix drip, placed on IV Lasix, and Dobutrex was discontinued. Patient was also placed on beta blockers and lisinopril, however his blood pressure is marginal, doubt if he will tolerate these medications with marginal low blood pressure. Pleural effusion yesterday showed low protein, but LDH is 514,, not clear whether this is transudative or exudative in nature, the elevated LDH makes it more of an exudative effusion. Cultures are pending. And cytology is pending. Chest x- ray is basically about the same. Patient remains on 4 L nasal cannula and his O2 saturation is 96%. Blood pressure is 87/50 with a mean of 62. INR is 1.8. Electrolytes are normal BUN is 48 creatinine 1.46, agree with cutting down the dose of Lasix. Liver enzymes are noted to be increasing, and this is most likely congestive hepatopathy. Troponin remains elevated. Patient was reevaluated today on 07/10/20, patient was noted to have low blood pressure, low urine output, and his creatinine has doubled. Seen already by cardiology, placed back on dobutamine, and dopamine was also added, however the patient is not tolerating the dopamine. And he is developing significant tachycardia and significant number of PVCs. Patient is also developing nausea and dry heaves. Nasogastric tube was placed but no output hence it was discontinued. I have recommended stopping dopamine, Come on Dobutrex, and I also discussed the CODE STATUS with the patient. Explained to him that he does have severe cardiomyopathy, worsening pulmonary status and worsening renal status, and overall picture does not look promising. Patient agrees to DO NOT RESUSCITATE CODE STATUS, does not wish to have any life support. He is very well aware of his clinical condition. His was also made aware of his overall poor picture, his condition was discussed with her by the hospitalist, and she is also agreeable to DO NOT RESUSCITATE CODE STATUS. Labs today showed normal CBC. Low platelets of 117,000. Normal electrolytes. Abnormal be on a 58 abnormal creatinine of 2.37. Patient was reevaluated today on 07/11/20, remains in the ICU, off Lasix drip, but he is on IV push Lasix. Remains on Dobutrex at 2.5 mcg/kg/m. Patient is feeling much better today, no further episodes of nausea and vomiting, but he is complaining that he is urinating a lot. Patient continues to have a Pedroza catheter in place. And his urine output is about 40 mL per hour. His IV fluid is cut down to 25 mL per hour. Patient is in a positive balance of 1.2 L over the last 24 hours. However his urine output picked up with Lasix and Dobutrex. Renal functioning is slightly improved today compared to yesterday, BUN is 65 and creatinine is down to 2.24. Liver enzymes remain elevated with AST of 538 and ALT of 477 Objective - Vital Signs Vital signs: Vital Signs Temp 97.9 F 07/11/20 04:00 Pulse 85 07/11/20 04:00 Resp 18 07/11/20 04:00 BP 113/80 07/11/20 04:00 Pulse Ox 97 07/11/20 04:00 Intake & Output 07/10/20 07/11/20 07/11/20 18:59 06:59 18:59 Intake Total 515.156 90.0 Output Total 210 447 Balance 305.156 -357.0 Weight 105.6 kg Intake: IV 450 90.0 DOBUTamine DRIP 500 mg In 90.0 Dextrose/Water 1 250ml. bag @ 2.5 MCG/KG/MIN 7.5 mls/hr IV .Q24H [facility] Rx#: [id number] Sodium Chloride 0.9% 1, 450 000 ml @ 50 mls/hr IV . Q20H [facility] Rx#:[id number] Intake, IV Titration 5.156 Amount DOPamine DRIP 800 mg In 5.156 Dextrose/Water 1 250ml. bag @ 3 MCG/KG/MIN 5.625 mls/hr IV .Q24H [facility] Rx#: [id number] Oral 60 Output: Urine 210 447 Other: Voiding Method Indwelling Catheter Indwelling Catheter - Exam Physical Exam: Revealed a 80-year-old white male, pleasant, on 5 L nasal cannula, O2 saturations 97% Head: Atraumatic, normocephalic. HEENT:[Neck is supple.] [No neck masses.] [No thyromegaly.] Positive JVD. Chest: [Diminished breath sounds at the bases no crackles nor rhonchi no wheezes , dullness at the left base. Cardiac Exam: Tachycardic, mostly paced rhythm. normal S1 and S2, 2/6 systolic murmur thought the precordium Abdomen: [Obese, Soft, nontender, no megaly, no rebound, no guarding, normal bowel sounds.] Extremities: [No clubbing, 1+ bipedal edema, no cyanosis.] Neurological Exam: [No focal neurologic deficit.] Alert oriented 3. Psychiatric: Normal mood, affect and normal mental status examination. Musculoskeletal: No deformities noted limitation of range of motion Skin: No rashes - Labs CBC & Chem 7: 07/11/20 04:34 07/11/20 04:34 Labs: Abnormal Lab Results - Last 24 Hours (Table) 07/10/20 07/11/20 07/11/20 Range/Units 19:14 04:34 04:34 MCV 104.0 H (80.0-100.0) fL MCHC 30.4 L (31.0-37.0) g/dL Plt Count 127 L (150-450) k/uL PT 19.7 H (9.0-12.0) sec INR 2.0 H (<1.2) Sodium (137-145) mmol/L BUN (9-20) mg/dL Creatinine (0.66-1.25) mg/dL Glucose (74-99) mg/dL POC Glucose (mg/dL) 108 H (75-99) mg/dL Phosphorus (2.5-4.5) mg/dL Total Bilirubin (0.2-1.3) mg/dL AST (17-59) U/L ALT (4-49) U/L Total Protein (6.3-8.2) g/dL Albumin (3.5-5.0) g/dL 07/11/20 Range/Units 04:34 MCV (80.0-100.0) fL MCHC (31.0-37.0) g/dL Plt Count (150-450) k/uL PT (9.0-12.0) sec INR (<1.2) Sodium 134 L (137-145) mmol/L BUN 65 H (9-20) mg/dL Creatinine 2.24 H (0.66-1.25) mg/dL Glucose 101 H (74-99) mg/dL POC Glucose (mg/dL) (75-99) mg/dL Phosphorus 5.0 H (2.5-4.5) mg/dL Total Bilirubin 2.0 H (0.2-1.3) mg/dL AST 538 H (17-59) U/L ALT 477 H (4-49) U/L Total Protein 6.0 L (6.3-8.2) g/dL Albumin 3.2 L (3.5-5.0) g/dL Microbiology - Last 24 Hours (Table) 07/05/20 18:20 Blood Culture - Preliminary Blood No Growth after 120 hours 07/08/20 15:20 Gram Stain - Preliminary Pleural Fluid Body Fluid Culture - Preliminary Assessment and Plan Assessment: Impression: Acute hypoxic respiratory failure secondary to acute on chronic systolic congestive heart failure and pulmonary edema. Acute non-ST elevation myocardial infarction Episodes of nonsustained ventricular tachycardia Acute on chronic systolic congestive heart failure Severe cardiomyopathy and LV dysfunction Elevated liver enzymes secondary to hepatic congestion and congestive heart failure History of AICD placement. Left pleural effusion, status post left-sided thoracentesis, 350 mL of fluid drained. Acute on chronic kidney injury, this is most likely cardiorenal in nature. With poor renal perfusion Recommendation: Continue Dobutrex Decrease IV fluid to 25 mL per hour Continue diuretics Continue to monitor in the ICU. Overall prognosis seems to be extremely poor and guarded. We'll continue to follow Time with Patient: Less than 30
[2020-07-11] MEDS ORDERED: FUROSEMIDE 10 MG/ML 10 ML VIAL IV STA (12:14)
[2020-07-11] MEDS: DOBUTamine DRIP 500 MG in DEXTROSE/WATER 1 250ML.BAG IV SCH (14:24)
--- NOTE | 2020-07-11 14:45 | P.PN ---
Subjective Progress Note Date: 07/11/20 Follow-up for acute kidney injury. Renal functions better. Urine output stable around 30-50 ML's an hour. Family at bedside. As per family wishes wants to go home with hospice. Objective - Vital Signs Vital signs: Vital Signs Temp 97.9 F 07/11/20 04:00 Pulse 85 07/11/20 04:00 Resp 18 07/11/20 04:00 BP 113/80 07/11/20 04:00 Pulse Ox 97 07/11/20 04:00 Intake & Output 07/10/20 07/11/20 07/11/20 18:59 06:59 18:59 Intake Total 515.156 90.0 227.5 Output Total 210 447 200 Balance 305.156 -357.0 27.5 Weight 105.6 kg Intake: IV 450 90.0 227.5 0.9 175 DOBUTamine DRIP 500 mg In 90.0 52.5 Dextrose/Water 1 250ml. bag @ 2.5 MCG/KG/MIN 7.5 mls/hr IV .Q24H [facility] Rx#: [id number] Sodium Chloride 0.9% 1, 450 000 ml @ 50 mls/hr IV . Q20H [facility] Rx#:[id number] Intake, IV Titration 5.156 Amount DOPamine DRIP 800 mg In 5.156 Dextrose/Water 1 250ml. bag @ 3 MCG/KG/MIN 5.625 mls/hr IV .Q24H [facility] Rx#: [id number] Oral 60 Output: Urine 210 447 200 Other: Voiding Method Indwelling Catheter Indwelling Catheter - Exam No acute distress S1-S2 heard Decreased breath sounds Abdomen soft 1+ edema - Labs CBC & Chem 7: 07/11/20 04:34 07/11/20 04:34 Labs: Abnormal Lab Results - Last 24 Hours (Table) 07/10/20 07/11/20 07/11/20 Range/Units 19:14 04:34 04:34 MCV 104.0 H (80.0-100.0) fL MCHC 30.4 L (31.0-37.0) g/dL Plt Count 127 L (150-450) k/uL PT 19.7 H (9.0-12.0) sec INR 2.0 H (<1.2) Sodium (137-145) mmol/L BUN (9-20) mg/dL Creatinine (0.66-1.25) mg/dL Glucose (74-99) mg/dL POC Glucose (mg/dL) 108 H (75-99) mg/dL Phosphorus (2.5-4.5) mg/dL Total Bilirubin (0.2-1.3) mg/dL AST (17-59) U/L ALT (4-49) U/L Total Protein (6.3-8.2) g/dL Albumin (3.5-5.0) g/dL 07/11/20 Range/Units 04:34 MCV (80.0-100.0) fL MCHC (31.0-37.0) g/dL Plt Count (150-450) k/uL PT (9.0-12.0) sec INR (<1.2) Sodium 134 L (137-145) mmol/L BUN 65 H (9-20) mg/dL Creatinine 2.24 H (0.66-1.25) mg/dL Glucose 101 H (74-99) mg/dL POC Glucose (mg/dL) (75-99) mg/dL Phosphorus 5.0 H (2.5-4.5) mg/dL Total Bilirubin 2.0 H (0.2-1.3) mg/dL AST 538 H (17-59) U/L ALT 477 H (4-49) U/L Total Protein 6.0 L (6.3-8.2) g/dL Albumin 3.2 L (3.5-5.0) g/dL Microbiology - Last 24 Hours (Table) 07/05/20 18:20 Blood Culture - Preliminary Blood No Growth after 120 hours 07/08/20 15:20 Gram Stain - Preliminary Pleural Fluid Body Fluid Culture - Preliminary Assessment and Plan Assessment: #1 nonoliguric acute kidney injury secondary to type I CRS. #2 CHF with systolic dysfunction, decompensated #3 volume overload with pulmonary edema #4 oxygen-dependent respiratory failure #5 hypervolemic hyponatremia #6 congestive hepatopathy with elevated liver enzymes Plan: #1 continue with Lasix 40 mg IV twice a day, at discharge change to torsemide 40 mg by mouth daily. #2 hospice appropriate. #3 supportive care
[2020-07-11] MEDS ORDERED: HYDROmorphone 0.5 MG/0.5 ML SYRINGE IVP PRN ×2 (17:31→17:32)
[2020-07-11] MEDS: LORazepam 2 MG/ML INJ IV PRN (17:55)
[2020-07-12] MEDS: HEPARIN SODIUM,PORCINE 5,000 UNIT/ML 1 ML VIAL SQ SCH ×2 (00:58→08:47)
[2020-07-12] MEDS: PANTOPRAZOLE 40 MG TABLET PO SCH (06:17)
[2020-07-12] MEDS: LORazepam 2 MG/ML INJ IV PRN ×3 (06:17→17:15)
[2020-07-12 06:18] LABS: Albumin 3.3 g/dL (3.5-5.0); Calcium 8.7 mg/dL (8.4-10.2); Magnesium 2.1 mg/dL (1.6-2.3); Phosphorus 3.8 mg/dL (2.5-4.5); Potassium 4.5 mmol/L (3.5-5.1); Total Bilirubin 2.1 mg/dL (0.2-1.3); Total Protein 6.2 g/dL (6.3-8.2)
[2020-07-12 06:22] LABS: HCT 46.9 % (39.0-53.0); HGB 14.6 gm/dL (13.0-17.5); Hypochromasia Moderate; MCH 32.1 pg (25.0-35.0); MCHC 31.2 g/dL (31.0-37.0); Macrocytosis Slight; Mean Platelet Volume 8.8; Platelet Count 111 k/uL (150-450); RBC 4.56 m/uL (4.30-5.90); RDW 14.5 % (11.5-15.5); WBC 6.2 k/uL (3.8-10.6)
[2020-07-12 06:28] LABS: INR 1.9 (<1.2); Prothrombin Time 18.3 sec (9.0-12.0)
[2020-07-12 08:29] VITALS: RESP 20
[2020-07-12] MEDS: LACTULOSE 20 GM/30 ML CUP PO SCH (08:39)
[2020-07-12] MEDS: FUROSEMIDE 10 MG/ML 4 ML VIAL IV SCH (08:47)
[2020-07-12] MEDS: DOBUTamine DRIP 500 MG in DEXTROSE/WATER 1 250ML.BAG IV SCH (09:36)
[2020-07-12] MEDS: SPIRONOLACTONE 25 MG TAB PO SCH (10:33)
[2020-07-12] MEDS: ASPIRIN 81 MG PO SCH (10:33)
[2020-07-12] MEDS: ATORVASTATIN 40 MG TAB PO SCH (10:33)
--- NOTE | 2020-07-12 10:56 | P.PN ---
Subjective Progress Note Date: 07/12/20 (delayed charting seen at 0830) Principal diagnosis: shortness of breath Patient is a 80-year-old male with a history of congestive heart failure status post AICD, dyslipidemia, and tobacco abuse who presented to the emergency department with shortness of breath, nausea, vomiting, and dizziness. The ER he was found to be tachycardic with pulse of 107. Initial laboratory analysis showed white blood cell count 10.7, platelets 140, d-dimer 1.98, INR 1.6, troponin 107, BNP 15,300, AST 656, ALT 101, total bilirubin 3.1. Initial chest x-ray demonstrated vascular congestion with small effusions. KUB demonstrated no evidence of free air or bowel obstruction. He also underwent a gallbladder ultrasound which demonstrated hepatomegaly with an 18.6 cm hypoechoic appearance to the liver with gallbladder wall thickening that was nonspecific. He was admitted with non-STEMI versus myocarditis. He was admitted to the ICU. He was started on aspirin, twice a day Lasix, heparin, and fluid restriction. He was seen by cardiology who recommended maximal therapy including diuretics, IV heparin, beta blockers, and YUE inhibitor. He was seen by critical care started on a Lasix drip along with dobutamine due to cardiogenic shock. He was able to achieve a negative fluid balance and had stable renal function. He was having some nonsustained V. tach and his dobutami ne was decreased. He continued to have abnormal LFTs along with coagulopathy and low platelets. He was seen by GI who felt that his liver dysfunction was secondary to passive venous congestion as he had had a negative acute hepatitis profile, however he stated he will need further workup once he is more stable. On 07/08 he underwent a left-sided thoracentesis with removal of 350 mL of fluid that was exudative versus transudative. His Dobutrex was discontinued on 07/09 as well as his Lasix drip secondary to worsening renal function. He was started on beta blockers. On the morning of 07/10 he was hypotensive, had decreased urine output, and his creatinine had doubled to greater than 2. He was seen by cardiology and dobutamine and dopamine were initiated. He immediately started having nausea, lightheadedness, and elevated heart rate. His dopamine was discontinued and his HR improved. His respirations improved. He continued to have increasing confusion. His ammonia was slight elevated and he was started on lactulose. Renal function stabilized on 07/11 with slightly improved urine output. D/W Pulmonary and Cardiology and patient has poor overall prognosis due to systolic CHF with cardiogenic shock and inability to wean off dobutamine. D/w family on 07/11 they wanted to meet with hospice and met with hospice taylor on 07/11 with plans for home hospice. Overnight 07/11 renal output stay stable at 30 cc/hr but did not respond to lasix 60mg IVP. He was confused and agitated several times overnight. He did require ativan use. Patient seen and examined at bedside. He is tired and short of breath. More confused and states that he doesn't trust me. General: Ill appearing, mild distress, appears at stated age Derm: warm, dry Head: atraumatic, normocephalic, symmetric Eyes: EOMI, no lid lag, anicteric sclera Mouth: no lip lesion, mucus membranes moist Cardiovascular: S1 and S2 tachycardic, positive posterior tibial pulse bilateral, + JVD Lungs: Increased breath sounds bilateral bases, 2 word conversational dyspnea, no accessory muscle use Abdominal: + distended, soft, nontender to palpation, no guarding, no appreciable organomegaly Ext: no gross muscle atrophy, 2+ edema, no contractures Neuro: CN II-XI grossly intact, no focal neuro deficits Psych: lethargic, confused, flat affect Metabolic encephalopathy - continue lactulose - supportive care Acute on Chronic systolic congestive heart failure ejection fraction less than 20% with cardiogenic shock, AICD in place, Acute hypoxic respiratory failure -On Lasix and Aldactone -Continue with dobutamine -Patient did have an ejection fraction 20-25% in November 2019 and outpatient echo with his cardiology team. 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 - Gall bladder US with pericholcystic fluid - follow INR and Liver enzymes -Follow CBC left Pleural effusion - s/p paracentesis, recurrent - pathology pending Leukocytosis, resolved Currently await hospice nursing evaluation, likely home with hospice today if all equipment can be arranged and transport. DVT prophylaxis:heparin Discussed with: patient, nursing, Dr. De La Cruz Anticipated discharge: 4-[address]: [facility] A total of 35 minutes was spent on the care of this complex patient more than 50% of the time was spent in counseling and care coordination. Objective - Vital Signs Vital signs: Vital Signs Temp 98.0 F 07/12/20 08:27 Pulse 108 H 07/12/20 08:27 Resp 20 07/12/20 08:27 BP 112/70 07/12/20 08:27 Pulse Ox 95 07/12/20 08:27 Intake & Output 07/11/20 07/12/20 07/12/20 18:59 06:59 18:59 Intake Total 477.5 292.5 0 Output Total 350 925 Balance 127.5 -632.5 0 Weight 98.6 kg Intake: IV 227.5 292.5 0.9 175 225 DOBUTamine DRIP 500 mg In 52.5 67.5 Dextrose/Water 1 250ml. bag @ 2.5 MCG/KG/MIN 7.5 mls/hr IV .Q24H [facility] Rx#: [id number] Intake, IV Titration 250 Amount DOBUTamine DRIP 500 mg In 250 Dextrose/Water 1 250ml. bag @ 2.5 MCG/KG/MIN 7.5 mls/hr IV .Q24H [facility] Rx#: [id number] Oral 0 Output: Urine 350 925 Other: Voiding Method Indwelling Catheter Indwelling Catheter Indwelling Catheter - Labs CBC & Chem 7: 07/12/20 05:33 07/12/20 05:33 Labs: Abnormal Lab Results - Last 24 Hours (Table) 07/12/20 07/12/20 07/12/20 Range/Units 05:33 05:33 05:33 MCV 103.0 H (80.0-100.0) fL Plt Count 111 L (150-450) k/uL PT 18.3 H (9.0-12.0) sec INR 1.9 H (<1.2) BUN 67 H (9-20) mg/dL Creatinine 1.86 H (0.66-1.25) mg/dL Glucose 102 H (74-99) mg/dL Total Bilirubin 2.1 H (0.2-1.3) mg/dL AST 257 H (17-59) U/L ALT 351 H (4-49) U/L Total Protein 6.2 L (6.3-8.2) g/dL Albumin 3.3 L (3.5-5.0) g/dL Microbiology - Last 24 Hours (Table) 07/05/20 18:20 Blood Culture - Final Blood No Growth after 144 hours 07/08/20 15:20 Gram Stain - Preliminary Pleural Fluid Body Fluid Culture - Preliminary
--- NOTE | 2020-07-12 11:12 | P.PN ---
Subjective Progress Note Date: 07/12/20 Follow-up for acute kidney injury. Most out of ICU. Objective - Vital Signs Vital signs: Vital Signs Temp 98.0 F 07/12/20 08:27 Pulse 108 H 07/12/20 08:27 Resp 20 07/12/20 08:27 BP 112/70 07/12/20 08:27 Pulse Ox 95 07/12/20 08:27 Intake & Output 07/11/20 07/12/20 07/12/20 18:59 06:59 18:59 Intake Total 477.5 292.5 0 Output Total 350 925 Balance 127.5 -632.5 0 Weight 98.6 kg Intake: IV 227.5 292.5 0.9 175 225 DOBUTamine DRIP 500 mg In 52.5 67.5 Dextrose/Water 1 250ml. bag @ 2.5 MCG/KG/MIN 7.5 mls/hr IV .Q24H [facility] Rx#: [id number] Intake, IV Titration 250 Amount DOBUTamine DRIP 500 mg In 250 Dextrose/Water 1 250ml. bag @ 2.5 MCG/KG/MIN 7.5 mls/hr IV .Q24H [facility] Rx#: [id number] Oral 0 Output: Urine 350 925 Other: Voiding Method Indwelling Catheter Indwelling Catheter Indwelling Catheter - Exam No acute distress S1-S2 heard Decreased breath sounds Abdomen soft 1+ edema - Labs CBC & Chem 7: 07/12/20 05:33 07/12/20 05:33 Labs: Abnormal Lab Results - Last 24 Hours (Table) 07/12/20 07/12/20 07/12/20 Range/Units 05:33 05:33 05:33 MCV 103.0 H (80.0-100.0) fL Plt Count 111 L (150-450) k/uL PT 18.3 H (9.0-12.0) sec INR 1.9 H (<1.2) BUN 67 H (9-20) mg/dL Creatinine 1.86 H (0.66-1.25) mg/dL Glucose 102 H (74-99) mg/dL Total Bilirubin 2.1 H (0.2-1.3) mg/dL AST 257 H (17-59) U/L ALT 351 H (4-49) U/L Total Protein 6.2 L (6.3-8.2) g/dL Albumin 3.3 L (3.5-5.0) g/dL Microbiology - Last 24 Hours (Table) 07/05/20 18:20 Blood Culture - Final Blood No Growth after 144 hours 07/08/20 15:20 Gram Stain - Preliminary Pleural Fluid Body Fluid Culture - Preliminary Assessment and Plan Assessment: #1 nonoliguric acute kidney injury secondary to type I CRS. #2 CHF with systolic dysfunction, decompensated #3 volume overload with pulmonary edema #4 oxygen-dependent respiratory failure #5 hypervolemic hyponatremia #6 congestive hepatopathy with elevated liver enzymes Plan: #1 continue with Lasix 40 mg IV twice a day, at discharge change to torsemide 40 mg by mouth daily. #2 hospice appropriate awaiting recommendations. #3 supportive care
--- NOTE | 2020-07-12 12:20 | P.PN ---
Subjective Progress Note Date: 07/12/20 Principal diagnosis: Acute non-ST elevation myocardial infarction and acute on chronic systolic congestive heart failure This is a 80-year-old white male with history of cardiomyopathy and LV dysfunction. No history of coronary artery disease, previous AICD placement, normally follows up with a employee wellness/fitness coordinator in [place]. Patient has been feeling sick for the last 4 days, patient has been experiencing intermittent episodes of nausea, unable to hold anything down, nauseated, vomiting at times, and he had some burning sensation in the chest. His neighbors were concerned, and the paramedics were called in on Monday. However the patient refused to come to the emergency room initially, but later on he changed his mind. Patient presented to the ER, and he was noted to have a paced rhythm, he was also noted to have congestive heart failure, with significantly elevated troponin level, significantly elevated pro BNP level, admitted, placed on diuretics, seen by cardiology on consultation, Though on heparin, echocardiogram showed significant LV dysfunction with ejection fraction of less than 20%. After my evaluation, I recommended a Lasix drip at 5 mg per hour, I also recommended dobutamine at 5 mcg/kg/m. Patient was reevaluated today on 07/07/20, remains in the ICU, patient remains on Lasix drip at 10 mg per hour, and on Dobutrex at 5 mcg/kg/m. Clinically the patient is feeling better, patient has a negative balance of over 950 ML in the last 24 hours. His renal functioning is improving. His IV fluid is at KVO. However while I was seeing the patient, he had a 10 beat run of nonsustained ventricular tachycardia. Patient had no symptoms, this was mostly seen on the monitor. Hence I cut down his dose of Imitrex to 2.5 mcg/kg/m, and asked the nurses to make sure that cardiology is aware. Patient has mostly paced rhythm most of the time, at times he has tachycardia and atrial fibrillation. Chest x- ray is again about the same. Clinically he feels better. And breathing a lot easier. WBC count 9.7 hemoglobin is 15.1. INR is 1.7. BUN is 43 creatinine is 1.12 improved compared to yesterday. Liver profile is also improving compared to yesterday. And his troponin is down to 64 from 116 yesterday. Reevaluated today on 07/08/20, remains in the ICU, remains on Lasix drip at 10 mg per hour and on Dobutrex 2.5 mcg/kg/m. Patient was seen by cardiology, and according to the note by the employee wellness/fitness coordinator, no plans to do any cardiac catheterization, no plans to do any interventional studies, basically recommended conservative medical management. Clinically the patient is feeling better, breathing easier, chest x-ray continues to show evidence of congestive heart failure and left pleural effusion. Patient is a -2.5 L in the last 2 days. Ultrasound of the chest showed good size pleural effusion on the left side, may consider thoracentesis on this patient. Patient is now on subcu heparin and set of IV heparin. CBC is relatively normal electrolytes are normal BUN is 41 and creatinine is 1.04. Reevaluated today on 07/09/20, patient is basically about the same, feels generally a bit weaker today. Patient had slight worsening of his renal status today, and he was seen by cardiology, discontinued Lasix drip, placed on IV Lasix, and Dobutrex was discontinued. Patient was also placed on beta blockers and lisinopril, however his blood pressure is marginal, doubt if he will tolerate these medications with marginal low blood pressure. Pleural effusion yesterday showed low protein, but LDH is 514,, not clear whether this is transudative or exudative in nature, the elevated LDH makes it more of an exudative effusion. Cultures are pending. And cytology is pending. Chest x- ray is basically about the same. Patient remains on 4 L nasal cannula and his O2 saturation is 96%. Blood pressure is 87/50 with a mean of 62. INR is 1.8. Electrolytes are normal BUN is 48 creatinine 1.46, agree with cutting down the dose of Lasix. Liver enzymes are noted to be increasing, and this is most likely congestive hepatopathy. Troponin remains elevated. Patient was reevaluated today on 07/10/20, patient was noted to have low blood pressure, low urine output, and his creatinine has doubled. Seen already by cardiology, placed back on dobutamine, and dopamine was also added, however the patient is not tolerating the dopamine. And he is developing significant tachycardia and significant number of PVCs. Patient is also developing nausea and dry heaves. Nasogastric tube was placed but no output hence it was discontinued. I have recommended stopping dopamine, Come on Dobutrex, and I also discussed the CODE STATUS with the patient. Explained to him that he does have severe cardiomyopathy, worsening pulmonary status and worsening renal status, and overall picture does not look promising. Patient agrees to DO NOT RESUSCITATE CODE STATUS, does not wish to have any life support. He is very well aware of his clinical condition. His was also made aware of his overall poor picture, his condition was discussed with her by the hospitalist, and she is also agreeable to DO NOT RESUSCITATE CODE STATUS. Labs today showed normal CBC. Low platelets of 117,000. Normal electrolytes. Abnormal be on a 58 abnormal creatinine of 2.37. Patient was reevaluated today on 07/11/20, remains in the ICU, off Lasix drip, but he is on IV push Lasix. Remains on Dobutrex at 2.5 mcg/kg/m. Patient is feeling much better today, no further episodes of nausea and vomiting, but he is complaining that he is urinating a lot. Patient continues to have a Pedroza catheter in place. And his urine output is about 40 mL per hour. His IV fluid is cut down to 25 mL per hour. Patient is in a positive balance of 1.2 L over the last 24 hours. However his urine output picked up with Lasix and Dobutrex. Renal functioning is slightly improved today compared to yesterday, BUN is 65 and creatinine is down to 2.24. Liver enzymes remain elevated with AST of 538 and ALT of 477 Patient is seen today 07/12/2020 in follow-up on the selective care unit. He is drowsy but arousable. He is maintaining O2 saturations in the mid 90s on 5 L/m per high flow nasal cannula. He's been afebrile. He remains on dobutamine at 2.5 mcg/kg/m. We will Lasix at 40 mg IV every 12 hours. Currently in a negative balance. Blood culture reveals no growth. Pleural fluid cultures pending. White count 6.2. Hemoglobin 14.6. INR 1.9. Sodium 137. Potassium 4.5. Creatinine 1.86. AST 257. ALT 351. Objective - Vital Signs Vital signs: Vital Signs Temp 98.0 F 07/12/20 08:27 Pulse 108 H 07/12/20 08:27 Resp 20 07/12/20 08:27 BP 112/70 07/12/20 08:27 Pulse Ox 95 07/12/20 08:27 Intake & Output 07/11/20 07/12/20 07/12/20 18:59 06:59 18:59 Intake Total 477.5 292.5 0 Output Total 350 925 Balance 127.5 -632.5 0 Weight 98.6 kg Intake: IV 227.5 292.5 0.9 175 225 DOBUTamine DRIP 500 mg In 52.5 67.5 Dextrose/Water 1 250ml. bag @ 2.5 MCG/KG/MIN 7.5 mls/hr IV .Q24H NIRMALA Rx#: [id number] Intake, IV Titration 250 Amount DOBUTamine DRIP 500 mg In 250 Dextrose/Water 1 250ml. bag @ 2.5 MCG/KG/MIN 7.5 mls/hr IV .Q24H NIRMALA Rx#: [id number] Oral 0 Output: Urine 350 925 Other: Voiding Method Indwelling Catheter Indwelling Catheter Indwelling Catheter - Exam Physical Exam: Revealed a 80-year-old male patient, drowsy but arousable, on 5 L nasal cannula, O2 saturations 95% Head: Atraumatic, normocephalic. HEENT: Neck is supple. No neck masses. No thyromegaly. Positive JVD. Chest: Crackles bilateral posterior bases, diminished in the left base Cardiac Exam: Tachycardic, mostly paced rhythm. normal S1 and S2, 2/6 systolic murmur thought the precordium Abdomen: Obese, Soft, nontender, no megaly, no rebound, no guarding, normal bowel sounds. Extremities: No clubbing, 1+ bipedal edema, no cyanosis. Neurological Exam: Drowsy but arousable today. No focal neurologic deficit. Alert oriented 3. Psychiatric: Normal mood, affect and normal mental status examination. Musculoskeletal: No deformities noted limitation of range of motion Skin: No rashes - Labs CBC & Chem 7: 07/12/20 05:33 07/12/20 05:33 Labs: Abnormal Lab Results - Last 24 Hours (Table) 07/12/20 07/12/20 07/12/20 Range/Units 05:33 05:33 05:33 MCV 103.0 H (80.0-100.0) fL Plt Count 111 L (150-450) k/uL PT 18.3 H (9.0-12.0) sec INR 1.9 H (<1.2) BUN 67 H (9-20) mg/dL Creatinine 1.86 H (0.66-1.25) mg/dL Glucose 102 H (74-99) mg/dL Total Bilirubin 2.1 H (0.2-1.3) mg/dL AST 257 H (17-59) U/L ALT 351 H (4-49) U/L Total Protein 6.2 L (6.3-8.2) g/dL Albumin 3.3 L (3.5-5.0) g/dL Microbiology - Last 24 Hours (Table) 07/05/20 18:20 Blood Culture - Final Blood No Growth after 144 hours 07/08/20 15:20 Gram Stain - Preliminary Pleural Fluid Body Fluid Culture - Preliminary Assessment and Plan Assessment: Acute hypoxic respiratory failure secondary to acute on chronic systolic congestive heart failure and pulmonary edema. Acute non-ST elevation myocardial infarction Episodes of nonsustained ventricular tachycardia Acute on chronic systolic congestive heart failure Severe cardiomyopathy and LV dysfunction Elevated liver enzymes secondary to hepatic congestion and congestive heart failure History of AICD placement. Left pleural effusion, status post left-sided thoracentesis, 350 mL of fluid drained. Acute on chronic kidney injury, this is most likely cardiorenal in nature. With poor renal perfusion Plan: The patient was seen and evaluated by Dr. Montalvo Overall prognosis remains quite poor Family is having discussion with hospice Continue supportive care for now I, the cosigning physician, performed a history & physical examination of the patient. Lungs sounds with crackles in the bilateral bases, diminished in the left base. Maintaining good O2 saturations in the 90s on 5 L/m per nasal cannula. I discussed the assessment and plan of care with my nurse practitioner, Lucia Yeh. I attest to the above note as dictated by her.
[2020-07-12] MEDS ORDERED: MORPHINE CONC SOLN 10mg/0.5mL ORAL SYRG PO PRN (12:28)
--- NOTE | 2020-07-12 12:41 | PN ---
PROGRESS NOTE Mr. Ho is a 80-year-old gentleman who is admitted to the hospital with coronary artery disease, ischemic cardiomyopathy and had an acute non ST-segment elevation RI. He was on dobutamine and dopamine. He was in the ICU. Prognosis is poor. Yesterday, they were able to take the dobutamine off and transfer him out of the ICU. He appears sleepy. Denies any chest pain or difficulty in breathing. PHYSICAL EXAM: Afebrile. Heart rate is 106 beats per minute, blood pressure is 112/70, respiratory rate is 20, O2 saturation is 95% on 5 L. Chest exam reveals good air entry bilaterally. Heart exam reveals first and second heart sounds. No gallop. Abdomen is soft. Exam of extremities reveals 1+ edema. LABORATORY DATA: INR is 1.9. MEDICATIONS: The patient is currently on aspirin, Lipitor, IV Lasix, Aldactone. ASSESSMENT: 1. Ischemic cardiomyopathy with congestive heart failure. 2. Cardiogenic shock. PLAN: Will continue him on his current medications. Labs have been reviewed. His prognosis is guarded. MMODL / IJN: [id number] /
[2020-07-12 13:05] VITALS: BP 108/70; PULSE 105; TEMP 98.2
--- NOTE | 2020-07-12 16:06 | P.DS ---
Providers Date of admission: 07/05/20 18:55 Expected date of discharge: 07/12/20 Attending physician: Jaye Rogel DO Consults: 07/05/20 18:50 Consult Physician Stat Consulting Provider: Dean Norris Consult Reason/Comments: NSTEMI, Do you want consulting provider notified?: Already Contacted Consult Physician Urgent Consulting Provider: Mervat Lynne Consult Reason/Comments: NSTEMI Do you want consulting provider notified?: Already Contacted 07/06/20 20:21 Consult Physician Routine Consulting Provider: Lyric Farmer Consult Reason/Comments: hepatitis Do you want consulting provider notified?: Yes 07/10/20 07:55 Consult Physician Routine Consulting Provider: Saida Awad Consult Reason/Comments: TOMASA in the setting of diuresis with cardiogenic shock Do you want consulting provider notified?: Yes Primary care physician: [facility] Course: Discharge Diagnosis: Metabolic encephalopathy Acute on Chronic systolic congestive heart failure ejection fraction less than 20% with cardiogenic shock, AICD in place, Acute hypoxic respiratory failure Non-ST segment elevated myocardial infarction TOMASA, oliguric Transaminitis, with coagulopathy and thrombocytopenia, left Pleural effusion Leukocytosis, resolved Hospital Course: Patient is a 80-year-old male with a history of congestive heart failure status post AICD, dyslipidemia, and tobacco abuse who presented to the emergency department with shortness of breath, nausea, vomiting, and dizziness. The ER he was found to be tachycardic with pulse of 107. Initial laboratory analysis showed white blood cell count 10.7, platelets 140, d-dimer 1.98, INR 1.6, troponin 107, BNP 15,300, AST 656, ALT 101, total bilirubin 3.1. Initial chest x-ray demonstrated vascular congestion with small effusions. KUB demonstrated no evidence of free air or bowel obstruction. He also underwent a gallbladder ultrasound which demonstrated hepatomegaly with an 18.6 cm hypoechoic appearance to the liver with gallbladder wall thickening that was nonspecific. He was admitted with non-STEMI versus myocarditis. He was admitted to the ICU. He was started on aspirin, twice a day Lasix, heparin, and fluid restriction. He was seen by cardiology who recommended maximal therapy including diuretics, IV heparin, beta blockers, and YUE inhibitor. He was seen by critical care started on a Lasix drip along with dobutamine due to cardiogenic shock. He was able to achieve a negative fluid balance and had stable renal function. He was having some nonsustained V. tach and his dobutamine was decreased. He continued to have abnormal LFTs along with coagulopathy and low platelets. He was seen by GI who felt that his liver dysfunction was secondary to passive venous congestion as he had had a negative acute hepatitis profile, however he stated he will need further workup once he is more stable. On 07/08 he underwent a left-sided thoracentesis with removal of 350 mL of fluid that was exudative versus transudative. His Dobutrex was discontinued on 07/09 as well as his Lasix drip secondary to worsening renal function. He was started on beta blockers. On the morning of 07/10 he was hypotensive, had decreased urine output, and his creatinine had doubled to greater than 2. He was seen by cardiology and dobutamine and dopamine were initiated. He immediately started having nausea, lightheadedness, and elevated heart rate. His dopamine was discontinued and his HR improved. His respirations improved. He continued to have increasing confusion. His ammonia was slight elevated and he was started on lactulose. Renal function stabilized on 07/11 with slightly improved urine output. D/W Pulmonary and Cardiology and patient has poor overall prognosis due to systolic CHF with cardiogenic shock and inability to wean off dobutamine. D/w family on 07/11 they wanted to meet with hospice and met with cloth examiner hand on 07/11 with plans for home hospice. Overnight 07/11 renal output stay stable at 30 cc/hr but did not respond to lasix 60mg IVP. He was confused and agitated several times overnight. He did require ativan use. Hospice was able to met with the patient and called the family and made arrangements for discharge home. A total of 35 minutes of time were spent preparing this complex discharge summary . Patient Condition at Discharge: Serious Plan - Discharge Summary New Discharge Prescriptions: New LORazepam [Ativan] 0.5 mg PO Q4H PRN #24 tab PRN Reason: Agitation bisacodyL [Dulcolax] 10 mg RECTAL DAILY PRN #10 supp PRN Reason: Constipation Haloperidol Oral Soln [Haldol Oral Soln] 2 mg PO Q4H PRN 5 Days #1 bottle PRN Reason: Psychosis Furosemide Oral Soln [Lasix] 40 mg PO BID 30 Days #1 bottle Hyoscyamine Elixir [Levsin 0.125MG/ML Drops] 0.125 mg PO Q4H PRN 10 Days #1 bottle PRN Reason: Secretions MORPHINE ORAL CARLTON CONC 20mg/mL [Roxanol Oral Soln Conc 20MG/ML] 5 mg PO Q4H PRN #30 ml PRN Reason: Pain Acetaminophen Suppository [Tylenol Suppository] 650 mg RECTAL Q6H PRN #30 supp PRN Reason: Pain Or Fever > 100.5 Continue Isosorbide Mononitrate ER [Imdur] 30 mg PO DAILY Discontinued Metoprolol Succinate (ER) [Toprol Xl] 25 mg PO DAILY Furosemide [Lasix] 40 mg PO DAILY Atorvastatin [Lipitor] 20 mg PO HS Tamsulosin HCl [Flomax] 0.4 mg PO DAILY Discharge Medication List Isosorbide Mononitrate ER [Imdur] 30 mg PO DAILY 07/06/20 [History] Acetaminophen Suppository [Tylenol Suppository] 650 mg RECTAL Q6H PRN #30 supp 07/12/20 [Rx] Furosemide Oral Soln [Lasix] 40 mg PO BID 30 Days #1 bottle 07/12/20 [Rx] Haloperidol Oral Soln [Haldol Oral Soln] 2 mg PO Q4H PRN 5 Days #1 bottle 07/12/20 [Rx] Hyoscyamine Elixir [Levsin 0.125MG/ML Drops] 0.125 mg PO Q4H PRN 10 Days #1 bottle 07/12/20 [Rx] LORazepam [Ativan] 0.5 mg PO Q4H PRN #24 tab 07/12/20 [Rx] MORPHINE ORAL CARLTON CONC 20mg/mL [Roxanol Oral Soln Conc 20MG/ML] 5 mg PO Q4H PRN #30 ml 07/12/20 [Rx] bisacodyL [Dulcolax] 10 mg RECTAL DAILY PRN #10 supp 07/12/20 [Rx] Follow up Appointment(s)/Referral(s): Nonstaff,Physician [REFERRING] - 1-2 days Patient Instructions/Handouts: Hospice (DC) Discharge Disposition: HOME WITH HOSPICE
== END 2020-07-12 17:48 | disposition hospice, home (50) | DRG 280 ==
LOC: EC 16:39 → 2SICU 18:55 → 3SCARD 07-12 04:37
PROVIDERS: ADMIT Internal Medicine; ATTEND Internal Medicine
PROC: 0W9B3ZX Drainage of Left Pleural Cavity, Percutaneous Approach, Diagnostic (ICD-10-PCS; principal; 2020-07-08)
PROC: 0D9670Z Drainage of Stomach with Drainage Device, Via Natural or Artificial Opening (ICD-10-PCS; 2020-07-10)
DX: I21.4 Non-ST elevation (NSTEMI) myocardial infarction (principal); I50.23 Acute on chronic systolic (congestive) heart failure; J96.01 Acute respiratory failure with hypoxia; K72.00 Acute and subacute hepatic failure without coma; R57.0 Cardiogenic shock; G93.41 Metabolic encephalopathy; J91.8 Pleural effusion in other conditions classified elsewhere; I47.2 Ventricular tachycardia; N17.9 Acute kidney failure, unspecified; I13.0 Hypertensive heart and chronic kidney disease with heart failure and stage 1 through stage 4 chronic kidney disease, or unspecified chronic kidney disease; D68.9 Coagulation defect, unspecified; E87.1 Hypo-osmolality and hyponatremia; I50.82 Biventricular heart failure; D69.6 Thrombocytopenia, unspecified; K76.1 Chronic passive congestion of liver; R16.0 Hepatomegaly, not elsewhere classified; I48.91 Unspecified atrial fibrillation; I25.5 Ischemic cardiomyopathy; Z66 Do not resuscitate; Z51.5 Encounter for palliative care; N18.9 Chronic kidney disease, unspecified; I49.3 Ventricular premature depolarization; E78.5 Hyperlipidemia, unspecified; E78.00 Pure hypercholesterolemia, unspecified; R94.5 Abnormal results of liver function studies; I25.10 Atherosclerotic heart disease of native coronary artery without angina pectoris; D72.829 Elevated white blood cell count, unspecified; F43.9 Reaction to severe stress, unspecified; E66.9 Obesity, unspecified; Z68.27 Body mass index [BMI] 27.0-27.9, adult; F17.200 Nicotine dependence, unspecified, uncomplicated; Z71.6 Tobacco abuse counseling; Z79.899 Other long term (current) drug therapy; Z71.3 Dietary counseling and surveillance; Z90.49 Acquired absence of other specified parts of digestive tract; Z87.19 Personal history of other diseases of the digestive system; Z90.89 Acquired absence of other organs; Z98.890 Other specified postprocedural states; Z95.810 Presence of automatic (implantable) cardiac defibrillator
CPT/HCPCS: 36415; 71045; 71046; 74018; 76604; 76705; 80048; 80053; 80074; 81001; 82103; 82105; 82140; 82390; 82728; 82945; 83516; 83540; 83550; 83605; 83615; 83735; 83880; 84100; 84157; 84165; 84484; 85025; 85027; 85379; 85610; 85730; 86038; 86376; 86709; 87040; 87070; 87205; 88108; 88305; 88341; 88342; 89050; 93005; 93306; 96361; 96365; 96375; 96376; 99291